=== PATIENT | male | born 1970 | race Caucasian/White ===

== ENCOUNTER 2022-05-06 09:01 | Outpatient (REF) | payer SELFPAY | END 2022-05-06 09:02 | disposition home or self-care (01) | LOC: HO.HAP 09:01 | DX: Z13.89 Encounter for screening for other disorder (principal) ==

== ENCOUNTER 2022-05-27 14:07 | Outpatient (REF) | payer SELFPAY ==
--- NOTE | 2022-05-27 15:35 | MHC.AU.HA3 ---
Hearing Instrument Follow-Up- Binaural Date of Visit: 05/27/22 Right Ear: Model Mason, Color, Serial Number: Raudel SUMNER 1600 ALYSSA-R SN: [id number] Color: Slate Parts Lister Repair Warranty: 04/12/2024 Parts Lister Loss and Damage Warranty: 04/12/2024 [facility] Service Plan: 01/24/2023 Battery Size: Rechargeable Lead Setter/Slim Tube: Size 2-60gain Earmold/Dome/CShell/SlimTip:9mm Open Type of Wax Guard: HearClear Dispensed By: [facility] Date of Fittin01/24/2022 Left Ear: Model Mason, Color, Serial Number: Raudel Patterson AI 1600 ALYSSA-R SN: [id number] Color: Slate Parts Lister Repair Warranty: 04/12/2024 Parts Lister Loss and Damage Warranty: 04/12/2024 [facility] Service Plan: 01/24/2023 Battery Size: Rechargeable Lead Setter/Slim Tube: Size 2-60gain Earmold/Dome/CShell/SlimTip: 9mm Open Type of Wax Guard: Hear Clear Dispensed By: [facility] Date of Fittin01/24/2022 Follow-Up Summary: Charles reported that his right hearing aid is not working. Wax guard had come out of channel marketing coordinator and was stuck in dome. Cleaned both hearing aids. Vacuumed microphones. Replaced domes and wax guards. A listening check demonstrated that the hearing aids are in good working order. Charles also reported that the right hearing aid was having connection issues to his cellphone. Forgot both devices and repaired successfully. Confirmed connection via YODIL guillaume and by streaming music. Discussed option to send hearing aids for in-warranty senior safety support manager repair as previously reported that hearing aids got wet in rain. Charles reported that he will try the hearing aids as is for now and will drop them off next week if problems persist. Recommendations: Hearing instrument maintenance in 6 months, or sooner if needed. Please contact our clinic with any questions or concerns. Recommendations (Other): If Charles drops off hearing aids, they will need to be sent for in-warranty senior safety support manager repair to clean and check electronics. Diagnosis Code(s): Primary Diagnosis: H90.3 Bilateral Sensorineural Hearing Loss Secondary Diagnosis: H93.13 Tinnitus, Bilateral Signature: Provider: An Rizvi, [facility]
== END 2022-05-27 14:08 | disposition home or self-care (01) ==
LOC: HO.HAP 14:07
PROVIDERS: Visit Provider Internal Medicine
DX: Z13.89 Encounter for screening for other disorder (principal)

== ENCOUNTER 2022-07-30 14:23 | Outpatient (REF) | payer SELFPAY ==
--- NOTE | 2022-07-30 16:34 | MHC.AU.HFU ---
Hearing Instrument Follow-Up- Binaural Date of Visit: 07/30/22 Right Ear: Raudel SUMNER 1600 ALYSSA-R SN: [id number] Color: Slate Repair Warranty: 04/12/2024 Loss and Damage Warranty: 04/12/2024 Service Plan: 01/24/2023 Battery Size: Rechargeable Supervisor Felling Bucking: Size 2-60gain Type of Dome: 9mm Open Type of Wax Guard: HearClear Dispensed By: [facility] Date of Fittin01/24/2022 Left Ear: Raudel SUMNER 1600 ALYSSA-R SN: [id number] Color: Slate Repair Warranty: 04/12/2024 Loss and Damage Warranty: 04/12/2024 Service Plan: 01/24/2023 Battery Size: Rechargeable Supervisor Felling Bucking: Size 2-60gain Type of Dome: 9mm Open Type of Wax Guard: Hear Clear Dispensed By: [facility] Date of Fittin01/24/2022 Follow-Up Summary: The patient is here for a hearing aid check as he reports his hearing aids are not working. The [employer]ium [employer] guillaume shows an issue with the left phlebotomy services technician and right microphone. Troubleshooting revealed right and left receivers were not functioning. In office we only had 2/50 gain receivers, so I used those bilaterally and put on new 9mm open domes. I also brushed the microphones under the covers. Listening check reveals clear sound bilaterally. The patient reports improved sound quality bilaterally. He re-ran the Ingenium Golf guillaume check and all hearing aid parts are in good working order. I explained that we had to use 2/50 gain receivers today and that he can wear them temporarily while I order 2/60 gain receivers. He will return in 2-3 weeks for 2/60 gain receivers to be replaced. We discussed hearing aid care as he is concerned why the receivers have had to be replaced twice in 1 year. Discussed allowing hair to thoroughly dry before inserting the hearing aids and recommended removing hearing aids by holding the body of the hearing aids, not the receivers. No charge today, under warranty. Diagnosis Code(s): Primary Diagnosis: H90.3 Bilateral Sensorineural Hearing Loss Secondary Diagnosis: H93.13 Tinnitus, Bilateral Signature: Provider: Julio Barrios, [facility]
== END 2022-07-30 14:24 | disposition home or self-care (01) ==
LOC: HO.HAP 14:23
PROVIDERS: Visit Provider Internal Medicine
DX: Z13.89 Encounter for screening for other disorder (principal)

== ENCOUNTER 2022-11-01 16:34 | Outpatient (REF) | payer SELFPAY | END 2022-11-01 16:35 | disposition home or self-care (01) | LOC: HO.HAP 16:34 | PROVIDERS: Visit Provider Internal Medicine | DX: Z13.89 Encounter for screening for other disorder (principal) ==

== ENCOUNTER 2022-11-01 16:40 | Outpatient (REF) | payer SELFPAY | END 2022-11-01 16:41 | disposition home or self-care (01) | LOC: HO.HAP 16:40 | PROVIDERS: Visit Provider Internal Medicine | DX: Z46.1 Encounter for fitting and adjustment of hearing aid (principal); H90.3 Sensorineural hearing loss, bilateral | CPT/HCPCS: V5267 ==

== ENCOUNTER 2022-11-19 15:52 | Outpatient (REF) | payer SELFPAY | END 2022-11-19 15:53 | disposition home or self-care (01) | LOC: HO.HAP 15:52 | PROVIDERS: Visit Provider Internal Medicine | DX: Z46.1 Encounter for fitting and adjustment of hearing aid (principal); H90.3 Sensorineural hearing loss, bilateral; H93.13 Tinnitus, bilateral | CPT/HCPCS: V5267 ==

== ENCOUNTER 2022-12-11 10:10 | Outpatient (REF) | payer SELFPAY | END 2022-12-11 10:11 | disposition home or self-care (01) | LOC: HO.HAP 10:10 | PROVIDERS: Visit Provider Internal Medicine | DX: Z13.89 Encounter for screening for other disorder (principal) ==

== ENCOUNTER 2023-02-19 12:58 | Outpatient (REF) | payer SELFPAY | END 2023-02-19 12:59 | disposition home or self-care (01) | LOC: HO.HAP 12:58 | PROVIDERS: Visit Provider Internal Medicine | DX: Z46.1 Encounter for fitting and adjustment of hearing aid (principal); H90.3 Sensorineural hearing loss, bilateral | CPT/HCPCS: 92700 ==

== ENCOUNTER 2023-04-07 11:28 | Outpatient (REF) | payer SELFPAY ==
--- NOTE | 2023-04-07 12:56 | MHC.AU.HA3 ---
Hearing Instrument Follow-Up- Binaural Date of Visit: 04/07/23 Right Ear: Mason, , Color, Serial Number: Raudel Patterson AI 1600 ALYSSA-R SN: [id number] Color: Slate Vinyl Welder And Fabricator Repair Warranty: 07/15/2025 Vinyl Welder And Fabricator Loss and Damage Warranty: 07/15/2025 [facility] Service Plan: 01/24/2023 Battery Size: Rechargeable Lifestyle Director/Slim Tube: Size 2-60gain Earmold/Dome/CShell/SlimTip:9mm Open Type of Wax Guard: HearClear Dispensed By: [facility] Date of Fittin01/24/2022 Left Ear: Mason, , Color, Serial Number: Raudel Patterson AI 1600 ALYSSA-R SN: [id number] Color: Slate Vinyl Welder And Fabricator Repair Warranty: 07/15/2025 Vinyl Welder And Fabricator Loss and Damage Warranty: 07/15/2025 [facility] Service Plan: 01/24/2023 Battery Size: Rechargeable Lifestyle Director/Slim Tube: Size 2-60gain Earmold/Dome/CShell/SlimTip: 9mm Open Type of Wax Guard: Hear Clear Dispensed By: [facility] Date of Fittin01/24/2022 Follow-Up Summary: Charles reported that his hearing aids are not working and per the self check via [employer] guillaume, his receivers are broken again. Charles was quite frustrated, as he has had to replace the receivers multiple times in the past few months. He does not understand why they are not withstanding everyday use. Upon inspection, hearing aids were in office. However, could have been related to battery. Instead of charging and troubleshooting in office, Charles opted to send his hearing aids to [facility] [place] for in-warranty repair and full diagnostics to determine cause of frequent manager cash replacements. Programmed [employer] loaners. Provided extra batteries and demo'ed how to change. Discussed turning on/off by opening battery door and volume control use. Also paired to cellphone. Recommendations: Patient will be contacted when materials have arrived. Diagnosis Code(s): Primary Diagnosis: H90.3 Bilateral Sensorineural Hearing Loss Signature: Provider: An Rizvi, [facility]
== END 2023-04-07 11:29 | disposition home or self-care (01) ==
LOC: HO.HAP 11:28
PROVIDERS: Visit Provider Internal Medicine
DX: Z13.89 Encounter for screening for other disorder (principal)

== ENCOUNTER 2023-04-21 15:26 | Outpatient (REF) | payer SELFPAY | END 2023-04-21 15:27 | disposition home or self-care (01) | LOC: HO.HAP 15:26 | PROVIDERS: Visit Provider Pediatrics | DX: Z13.89 Encounter for screening for other disorder (principal) ==

== ENCOUNTER 2023-06-24 13:30 | Outpatient (REF) | payer SELFPAY ==
--- NOTE | 2023-06-24 16:19 | MHC.AU.HA3 ---
Hearing Instrument Follow-Up- Binaural Date of Visit: 06/24/23 Right Ear: Mason, Model, Color, Serial Number: Raudel Patterson AI 1600 ALYSSA-R SN: [id number] Color: Slate Trust Operations Assistant Repair Warranty: 07/14/2025 Trust Operations Assistant Loss and Damage Warranty: 07/14/2025 [facility] Service Plan: 01/24/2023 Battery Size: Rechargeable Machine Captain/Slim Tube: Size 2-60gain Earmold/Dome/CShell/SlimTip:9mm Open Type of Wax Guard: HearClear Dispensed By: [facility] Date of Fittin01/24/2022 Left Ear: Mason, Model, Color, Serial Number: Raudel Patterson AI 1600 ALYSSA-R SN: [id number] Color: Slate Trust Operations Assistant Repair Warranty: 07/14/2025 Trust Operations Assistant Loss and Damage Warranty: 07/14/2025 [facility] Service Plan: 01/24/2023 Battery Size: Rechargeable Machine Captain/Slim Tube: Size 2-60gain Earmold/Dome/CShell/SlimTip: 9mm Open Type of Wax Guard: Hear Clear Dispensed By: [facility] Date of Fittin01/24/2022 Follow-Up Summary: Pt reports that as of this morning his right hearing aid is not connecting with his phone, not found in the guillaume, and not streaming. Cleaned and checked aid and confirmed it is functional. Attempted forgetting and repairing aid. Connected aids in Inspire to confirm the right aid could be found by the software. Called Raudel and was walked through additional attempts to forget and pair the aids with his phone, as well as wipe them in the software and reconnect them. Right aid was losing connection with [employer]. Tech support recommended sending both aids in. Reference #[id number]. Set up with loaners. Recommendations: Recommendations: Patient will be contacted when materials have arrived. Recommendations (Other): Raudel recommends setting up new [facility] database file for patient when the aids come back from repair to prevent corrupted data from transferring back to the aids. Diagnosis Code(s): Primary Diagnosis: H90.3 Bilateral Sensorineural Hearing Loss Secondary Diagnosis: H93.13 Tinnitus, Bilateral Signature: Provider: An Gaitna, [facility]
== END 2023-06-24 13:31 | disposition home or self-care (01) ==
LOC: HO.HAP 13:30
PROVIDERS: Visit Provider Pediatrics
DX: Z13.89 Encounter for screening for other disorder (principal)

== ENCOUNTER 2023-07-10 09:09 | Outpatient (REF) | payer SELFPAY | END 2023-07-10 09:10 | disposition home or self-care (01) | LOC: HO.HAP 09:09 | PROVIDERS: Visit Provider Pediatrics | DX: Z13.89 Encounter for screening for other disorder (principal) ==

== ENCOUNTER 2023-09-01 13:01 | Outpatient (REF) | payer SELFPAY ==
--- NOTE | 2023-09-01 13:43 | MHC.AU.HA3 ---
Hearing Instrument Follow-Up- Binaural Date of Visit: 09/01/23 Right Ear: Mason, Model, Color, Serial Number: Raudel Patterson AI 1600 ALYSSA-R SN: [id number] Color: Slate Baggage Clerk Repair Warranty: 07/14/2025 Baggage Clerk Loss and Damage Warranty: 07/14/2025 [facility] Service Plan: 01/24/2023 Battery Size: Rechargeable Polymer Engineer/Slim Tube: Size 2-60gain Earmold/Dome/CShell/SlimTip:9mm Open Type of Wax Guard: HearClear Dispensed By: [facility] Date of Fittin01/24/2022 Left Ear: Mason, Model, Color, Serial Number: Raudel Jamesv AI 1600 ALYSSA-R SN: [id number] Color: Slate Baggage Clerk Repair Warranty: 07/14/2025 Baggage Clerk Loss and Damage Warranty: 07/14/2025 [facility] Service Plan: 01/24/2023 Battery Size: Rechargeable Polymer Engineer/Slim Tube: Size 2-60gain Earmold/Dome/CShell/SlimTip: 9mm Open Type of Wax Guard: Hear Clear Dispensed By: [facility] Date of Fittin01/24/2022 Follow-Up Summary: Here with right hearing aid, guillaume tells him it is the keno attendant. Cleaned and checked aids, listening check positive left. Tried cleaning out right keno attendant as well as connection point between hearing aid and keno attendant, no improvement. No obvious damage to keno attendant. Replaced, listening check positive. Charles continues to be frustrated with this ongoing issue. Reviewed best practices for hearing aid maintenance to prevent keno attendant problems. Recommendations: Recommendations: Hearing instrument follow-up or maintenance as needed. Diagnosis Code(s): Primary Diagnosis: H90.3 Bilateral Sensorineural Hearing Loss Secondary Diagnosis: H93.13 Tinnitus, Bilateral Signature: Provider: An Gaitan, [facility]
== END 2023-09-01 13:02 | disposition home or self-care (01) ==
LOC: HO.HAP 13:01
PROVIDERS: Visit Provider Pediatrics
DX: Z13.89 Encounter for screening for other disorder (principal)

== ENCOUNTER 2024-03-24 14:56 | Outpatient (REF) | payer OTHER, SELFPAY | END 2024-03-24 14:57 | disposition home or self-care (01) | LOC: HO.HAP 14:56 | DX: Z13.89 Encounter for screening for other disorder (principal) ==

== ENCOUNTER 2024-05-26 15:41 | Outpatient (REF) | payer OTHER, SELFPAY ==
--- NOTE | 2024-05-27 08:23 | MHC.AU.HA3 ---
Hearing Instrument Follow-Up- Binaural Date of Visit: 05/26/24 Right Ear: Mason, Model, Color, Serial Number: Raudel Patterson AI 1600 ALYSSA-R SN: [id number] Color: Slate Medical Affairs Director Repair Warranty: 07/14/2025 Medical Affairs Director Loss and Damage Warranty: 07/14/2025 [facility] Service Plan: 01/24/2023 Battery Size: Rechargeable Gis Technician/Slim Tube: Size 2-60gain Earmold/Dome/CShell/SlimTip:9mm Open Type of Wax Guard: HearClear Dispensed By: [facility] Date of Fittin01/24/2022 Left Ear: Mason, Model, Color, Serial Number: Raudel Jamesv AI 1600 ALYSSA-R SN: [id number] Color: Slate Medical Affairs Director Repair Warranty: 07/14/2025 Medical Affairs Director Loss and Damage Warranty: 07/14/2025 [facility] Service Plan: 01/24/2023 Battery Size: Rechargeable Gis Technician/Slim Tube: Size 2-60gain Earmold/Dome/CShell/SlimTip: 9mm Open Type of Wax Guard: Hear Clear Dispensed By: [facility] Date of Fittin01/24/2022 Follow-Up Summary: Left aid not working. Cleaned aids. Replaced wax guards and domes. Listening check positive right. Tried new monitoring specialist left, no improvement. Light comes on when placed in office devulcanizer charger but no sound. Sending to [facility]. Will make note of Charles's ongoing monitoring specialist problems to [facility] as well. Provided a pair of loaner aids. Charles took his right aid with him. Recommendations: Recommendations: Patient will be contacted when materials have arrived. Recommendations (Other): May need appointment to pair aids. Has loaners to return. Diagnosis Code(s): Primary Diagnosis: H90.3 Bilateral Sensorineural Hearing Loss Secondary Diagnosis: H93.13 Tinnitus, Bilateral Signature: Provider: An Gaitan, [facility]
== END 2024-05-26 15:42 | disposition home or self-care (01) ==
LOC: HO.HAP 15:41
DX: Z13.89 Encounter for screening for other disorder (principal)

== ENCOUNTER 2024-06-10 14:44 | Outpatient (REF) | payer SELFPAY ==
--- OUTSIDE RECORDS SUMMARY | 2024-06-10 16:18 | XMS_ITS | Continuity of Care Document ---
Author Organization [facility], Main Office Address [address] [place] [address] Care Team Providers Care Dirt Contractor Name Role Phone TITO HDZ Primary Care Provider TAMI WORRELL Windows Vmware Engineer KUSH DAHL Phys. Med. & Rehab [phone] JAYDA LOCK Urologist [facility] Orthopedic Surgeon CAT PINEDA Orthopedic Surgeon [facility] [place] [place] Manual Arts Therapy Teacher [facility] GASTROENTEROLOGY System Planning Engineer [phone] [facility] VASCULAR Vascular Surgeon [phone] Assessment No assessment recorded. Plan of Treatment Reminders Order Date Submit Date Provider Last Modified By Organization Details Last Modified Time Details Appointments telehealt h20 2024 02:45P M Tito Hdz MD Not available Not available Not available Lab lipid panel, serum 2023 024 [place] [facility], [address], [place], [address], 06/02/2024 06:07:08 vitamin D, 25-hydrox y, total, serum 2023 024 [place] [facility], [address], [place], [address], 06/02/2024 06:07:09 PSA, total, serum or plasma 2023 024 [place] [facility], [address], [place], [address], 06/02/2024 06:07:08 CMP, serum or plasma 2023 024 [place] [facility], [address], [place], [address], 06/02/2024 06:07:07 CBC w/ auto diff 2023 024 [place] [facility], [address], [place], [address], 06/02/2024 06:07:[address] referral 2023 024 [email or web address] [facility], [address] [place] [address] [place], [address], 05/31/2024 13:49:31 nutrition ist/dieti [facility] referral 2023 024 [email or web address] Not available 05/31/2024 13:49:31 Procedures None recorded. Surgeries None recorded. Imaging None recorded. 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 Excess Body Weight Loss % 5 Not available Not available Not available Ongoing of LDL Direct <100 Not available Not available Not available Ongoing of LDL Direct yearly Not available Not available Not available Pt advised and agrees to work on self-monitoring behaviors; begin an appropriate diet for weight loss (such as a low carbohydrate diet), to do moderate exercise (such as walking) for approximately 150 minutes per week; and to identify desirable and timely rewards that will reinforce achievement of specific weight loss goals.Pt agrees to follow low fat diet, avoid saturated fats , decrease carbohydrate intake to 45 - 50 gm per meal , pt agrees to develop a regular pattern of exercise such as walking 30 minutes a day 3 times a week, Pt will keep a record of exercise and activity level Patient preferences and goals incorporated in plan and updated/modified as needed to reflect progress toward goal. pmadden Not available 05/31/2024 13:13:01 Patient Instructions Encounter Date Encounter Id Patient Instructions Last Modified By Organization Details Last Modified Time 05/31/2024 [id number] Prostate Cancer Screening pmadden Not available 05/31/2024 13:35:29 When You Want to Lose Weight: Care Instructions pmadden Not available 05/31/2024 13:35:28 Nutrition Referral and Weight Management Follow-up Information pmadden Not available 05/31/2024 13:35:28 learning about colon cancer pmadden Not available 05/31/2024 13:35:28 A healthy lifestyle: care instructions pmadden Not available 05/31/2024 13:35:28 Well Visit 50 to 65: Care Instructions pmadden Not available 05/31/2024 13:35:28 Medications (OTC , herbal therapies, supplements) reviewed and reconciled with patient and or caregiver, including potential side effects, drug interactions, instructions, and the consequences of not taking medication. Reviewed potential barriers to medication adherence, such as side effects from medication or cost of medication. 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 for Body mass index 25-29 - overweight Referring Physician: Jason Lux, Internal Medicine, Encounter Date: 05/31/2024 Manual Arts Therapy Teacher Referral for Hea ring loss Referring Physician: Jason Lux, Internal Medicine, Encounter Date: 05/31/2024 Problems Name Problem SNOMED Code Status Onset Date Resolution Date Notes Provider Name and Address Organization Details Recorded Time Vertigo 432128789 Completed 08/14/2016 Denita morris [facility] 7 10:40:21 History of Lyme disease 358292253 Completed 07/13/2022 MISSY Kincaid [facility] 3 09:15:53 Body mass index 25-29 - overweigh t 755935378 Completed 06/04/2018 Tito Hdz MD [address], [place], [address], [facility] 8 10:03:27 Thyroid nodule 030756677 Completed 01/17/2016 Tito Hdz MD [address], [place], [address], [facility] 6 06:06:56 Tinnitus 38585817 Completed 201508/14/2016 Denita Dong [place] null, [facility] 7 10:41:15 Acute sinusitis 93896931 Completed 201605/30/2017 Tito Hdz MD [address], [place], [address], [facility] 7 15:32:08 Chronic sinusitis 59109699 Completed 201606/04/2018 Tito Hdz MD [address], [place], [address], [facility] 8 10:03:41 Adult health examinati on Completed 201605/30/2017 Tito Hdz MD [address], [place], [address], [facility] 7 16:01:53 Knee pain Completed 201805/31/2019 Tito Hdz MD [address], [place], [address], [facility] 9 10:01:15 Osteoarth ritis of right knee joint 293150427339 100 Active 2018 Tito Hdz MD [address], [place], [address], [facility] 9 07:02:46 Sprain of posterior cruciate ligament of knee 741295387 Completed 201806/01/2020 Tito Hdz MD [address], [place], [address], [facility] 0 10:22:03 Chondroma lacia of patella 85890429 Completed 201806/01/2020 Tito Hdz MD [address], [place], [address], [facility] 0 10:22:34 Hearing loss 82693770 Active 2018 Tito Hdz MD [address], [place], [address], [facility] 9 10:03:02 Bilateral tinnitus 471898292600 2 Active 2018 Tito Hdz MD [address], [place], [address], [facility] 9 10:03:10 Obesity 444264308 Completed 201806/01/2020 Tito Hdz MD [address], [place], [address], [facility] 0 10:20:22 Family history of Cardiovas cular disease 566062555 Active 2019 Tito Hdz MD [address], [place], [address], [facility] 0 10:30:03 Adjustmen t disorder with depressed mood 30567804 Completed 201905/09/2024 Tito Hdz MD [address], [address], [facility] 4 23:21:00 Achilles tendiniti s 69039780 Completed 202006/13/2022 Tito Hdz MD [address], [address], [facility] 3 16:08:11 Calcaneal spur 56976867 Active 2020 Tito Hdz MD [address], [place], [address], [facility] 1 15:52:22 COVID-19 064606591 Completed 202106/13/2022 Tito Hdz MD [address], [place], [address], [facility] 3 16:00:26 Sensorine ural hearing loss 31983893 Active 2021 Tito Hdz MD [address], [place], [address], [facility] 2 19:37:34 Attention deficit hyperacti vity disorder, predomina ntly inattenti ve type 15303069 Active 2022 Tito Hdz MD [address], [place], [address], [facility] 3 13:36:04 Diaphragm atic eventrati on 99492228 Active 2022 Tito Hdz MD [address] [facility] [address] [facility] [address], [place], [address], [facility] 3 10:19:46 Left Achilles tendiniti s 055771189065 102 Active 2022 Tito Hdz MD [address] [facility] [address] [facility] [address], [place], [address], [facility] 3 10:01:26 Impaired fasting glycemia 088669147 Active 2023 Tito Hdz MD [address], [place], [address], [facility] 4 06:32:35 Acute deep venous thrombosi s of left lower extremity 379313691801 104 Active 2023 Tito Hdz MD [address] [address], [place], [address], [facility] 4 22:39:54 Umbilical hernia 131042068 Active 2023 Tito Hdz MD [address] [address], [place], [address], [facility] 4 09:18:14 Moderate major depressio n, single episode 29020995 Active 2023 Tito Hdz MD [address] [address], [place], [address], [facility] 4 15:49:23 Problem Notes None recorded. Procedures Surgical History Date Name Laterality Status Provider Name and Address Organization Details Recorded Time 01/07/20 24 repair of umbilical hernia completed Tito Hdz MD [address] [address], [place], [address], [facility] 01/16/2024 21:31:35 06/04/20 23 repair of tendo achilles completed Chana Krishnan [facility] 07/09/2023 14:14:47 02/08/20 22 tooth extraction completed Anali molina [facility] 09/09/2023 13:19:42 11/23/19 20 vasectomy completed Tito Hdz MD [address], [address], [facility] 11/26/2019 12:39:28 06/04/20 18 Cerumen Removal completed Tito Hdz MD [address] [address], [place], [address], [facility] 06/04/2018 10:24:16 05/11/20 18 Oral surgery procedure completed Dionne Stewart [facility] 06/04/2018 09:40:01 11/27/18 71 Circumcision completed Pebbles Barros MA [facility] 06/04/2021 08:46:28 Oral surgery procedure completed Chana Krishnan MA [facility] 06/13/2022 15:40:35 Imaging Results None recorded. Procedure Notes None recorded. Medical Equipment None Reported. Allergies Allergen ID Allergen Name Allergen Category Reaction Reaction Severity Criticality Documentation Date Start Date Code Code System Note Provider Name and Address Organization Details Recorded Time 71997 sertralin e medicatio n abdominal pain diarrhea Not available Not available Not available 04/15/2024 [id number] RxNorm Anali MIS[address] Camacho [facility] 11:23:14 Medications Name Sig Start Date Stop Date Status Note LastModified by Organization Details LastModified Time amoxicilli n 500 mg capsule TAKE 1 CAPSULE BY MOUTH EVERY 8 HOURS UNTIL FINISHED 06/13 completed Not Available Not Available Not Available prednisone 10 mg tablet Take 3 tablets by mouth daily for 3 days, then 2 tablets by mouth for 3 days, then 1 tablet by mouth for 3 days. 08/27 completed Not Available Not Available Not Available doxycyclin e hyclate 100 mg capsule 05/30 completed Not Available Not Available Not Available cetirizine 10 mg tablet Take 1 tablet every day by oral route. 05/30 completed Not Available Not Available Not Available azithromyc in 250 mg tablet TAKE 2 TABLETS (500 MG) BY ORAL ROUTE ONCE DAILY FOR 1 DAY THEN 1 TABLET (250 MG) BY ORAL ROUTE ONCE DAILY FOR 4 DAYS 07/26 completed Not Available Not Available Not Available ibuprofen 800 mg tablet TAKE 1 TABLET BY MOUTH EVERY 8 HOURS NEEDED 07/09 completed Not Available Not Available Not Available tizanidine 4 mg tablet Take 1 tablet every 6 hours by oral route as needed. 12/24 completed Not Available Not Available Not Available benzonatat e 200 mg capsule TAKE 1 CAPSULE BY MOUTH THREE TIMES DAILY FOR 7 DAYS NEEDED FOR COUGH 09/08 completed Not Available Not Available Not Available hydrocodon e 5 mg-acetami nophen 325 mg tablet TAKE 1 TABLET BY MOUTH EVERY 6 HOURS NEEDED FOR PAIN 01/05 /2023 completed Not Available Not Available Not Available prednisone 20 mg tablet Take 3 tablets for 3 days, then 2 tablets for 3 days then 1 tablet for 3 days. 09/08 completed Not Available Not Available Not Available clonazepam 0.5 mg tablet TAKE 1 TABLET BY MOUTH TWICE DAILY NEEDED FOR PANIC ATTACKS OR SLEEP active Not Available Not Available No t Available prednisone 5 mg tablet 12/08 completed Not Available Not Available Not Available aspirin 81 mg tablet,del ayed release TAKE 1 TABLET BY MOUTH TWICE DAILY 07/09 completed Not Available Not Available Not Available tramadol 50 mg tablet 08/14 completed Not Available Not Available Not Available acetaminop hen 500 mg tablet TAKE 2 TABLETS BY MOUTH EVERY 8 HOURS NEEDED 07/09 completed Not Available Not Available Not Available amoxicilli n 875 mg tablet 12/24 completed Not Available Not Available Not Available dextroamph etamine-am phetamine ER 20 mg 24hr capsule,ex tend release Take 1 capsule every day by oral route for 90 days. 2023 active Not Available Not Available Not Avai lable oseltamivi r 75 mg capsule Take 1 capsule twice a day by oral route. 06/01 completed Not Available Not Available Not Available Iophen C-NR 10 mg-100 mg/5 mL oral liquid Take 10 mL as needed by oral route at bedtime. 08/06 completed Not Available Not Available Not Available methylpred nisolone 4 mg tablets in a dose pack TAKE 6 TABLETS ON DAY 1 DIRECTED ON PACKAGE AND DECREASE BY 1 TAB EACH DAY FOR A TOTAL OF 6 DAYS 07/19 completed Not Available Not Available Not Available albuterol sulfate HFA 90 mcg/actuat ion aerosol inhaler INHALE 2 PUFFS BY MOUTH EVERY 4 HOURS NEEDED 10/19 completed Not Available Not Available Not Available fluticason e propionate 50 mcg/actuat ion nasal spray,susp ension SHAKE LIQUID AND USE 2 SPRAYS IN EACH NOSTRIL EVERY DAY DIRECTED 10/19 completed Not Available Not Available Not Available sertraline 50 mg tablet TAKE 1 TABLET BY MOUTH EVERY DAY 04/15 completed Not Available Not Available Not Available doxycyclin e hyclate 100 mg tablet Take 1 tablet twice a day by oral route for 10 days. 11/29 completed Not Available Not Available Not Available amoxicilli n 875 mg-potassi um clavulanat e 125 mg tablet TAKE 1 TABLET BY MOUTH EVERY 12 HOURS FOR 10 DAYS 09/08 completed Not Available Not Available Not Available oxycodone 5 mg tablet TAKE 1 TABLET BY MOUTH EVERY 6 HOURS NEEDED FOR PAIN 03/09 completed Not Available Not Available Not Available escitalopr am 10 mg tablet TAKE 1 TABLET BY MOUTH EVERY DAY DIRECTED 05/31 completed Not Available Not Available Not Available Saline Nasal 0.65 % spray aerosol Take 2 sprays 4 times a day by nasal route. 05/30 completed Not Available Not Available Not Available multivitam in 1 qd active Not Available Not Available Not Available GaviLyte-G 236 gram-22.74 gram-6.74 gram-5.86 gram oral solution USE DIRECTED 09/08 completed Not Available Not Available Not Available Eliquis 5 mg tablet TAKE 1 TABLET BY MOUTH TWICE DAILY active Not Available Not Available No t Available Eliquis DVT-PE Treatment 30-Day Starter 5 mg (74 tablets) in dose pack TAKE 2 TABLETS BY MOUTH TONIGHT (09/05). THEN TAKE 2 TABLETS BY MOUTH TWO TIMES A DAY FOR 7 DAYS. THEN TAKE 1 TABLET BY MOUTH TWO TIMES A DAY. 10/19 completed per ER, should stay on this for 3 months. Not Available Not Available Not Available Flucelvax Quad 60 mcg (15 mcg x 4)/0.5 mL intramuscu lar susp PHARMACY ADMINIST ERED 06/01 completed Not Available Not Available Not Available Paxlovid 300 mg (150 mg x 2)-100 mg tablets in a dose pack TAKE 3 TABLETS TWICE A DAY BY ORAL ROUTE FOR 5 DAYS. 06/13 completed Not Available Not Available Not Available Vitals Date Recorded Body height Body mass index (BMI) Body weight Oxygen saturation Oxygen saturation in Arterial blood by Pulse oximetry Heart rate Body temperature Systolic blood pressure Diastolic blood pressure Provider Name and Address Organization Details Last Updated DateTime 4 185.42 cm 29.9 kg/m2 410583. 68 g 98 % 98 % 78 /min 98.7 [degF] 134 mm[Hg] 77 mm[Hg] Alberta Mena MA [facility] 4 12:59:28 Social History Question Answer Notes LastModified by Organizat ion Details LastModified Time Tobacco Smoking Status Never Smoker Not Available [employer] 04/11/2020 03:36:41 Do You Have An Advance Directive? Yes HCP- -Sharona Information not available 07/09/2023 What Is Your Level Of Alcohol Consumption? Occasional [id number] Information not available 04/11/2020 Is Blood Transfusion Acceptable In An Emergency? Yes [id number] Information not available 04/11/2020 What Is Your Level Of Caffeine Consumption? None Decaf Information not available 07/09/2023 How Much Tobacco Do You Chew? None [id number] Information not available 04/11/2020 Are You Currently Employed? Yes [id number] [facility] Information not available 06/13/2022 What Type Of Diet Are You Following? VEGETARIAN [id number] Information not available 04/11/2020 Which Illicit Or Recreational Drugs Have You Used? None [id number] Information not available 04/11/2020 Do You Or Have You Ever Used E-cigarettes Or Vape? 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 With Others (Sharona)Alyssa, 3 Children, 2 Cats And Dog Information not available 07/09/2023 Do You Take Precautions To Prevent Distracted Driving? Yes Information not available 12/27/2015 How Often Do You Need To Have Someone Help You When You Read Instructions, Pamphlets, Or Other Written Material From Your Doctor Or Pharmacy? Never Information not available 12/27/2015 Have You Served In The ? Yes Information not available 06/04/2018 Have You Or Anyone In Your Household Had Any Of The Following Symptoms In The Last 14 Days: Sore Throat, Cough, Chills, Body Aches For Unknown Reasons, Shortness Of Breath For Unknown Reasons, Loss Of Smell, Loss Of Taste, Fever At Or Greater Than 100 Degrees Fahrenheit? No Information not available 06/01/2020 Are You Or Anyone In Your Household A Health Care Provider Or Emergency Responder? No Information not available 06/01/2020 To The Best Of Your Knowledge Have You Been In Close Proximity To Any Individual Who Tested Positive For COVID-19? No Information not available 06/01/2020 *AWV ONLY* Are You Presently Prescribed Opioid Medication By PCP Or Specialist? If YES -Provider Assess The Benefit For Other, Non-opioid Pain Therapies Instead, Even If The Patient Does Not Have OUD But Is Possibly At Risk. No Information not available 06/01/2020 What Was The Date Of Your Most Recent Tobacco Screening? 05/31/2024 [email or web address] Information not available 05/31/2024 How Many Children Do You Have? 3 [id number] Information not available 04/11/2020 Do You Use Protection During Sex? No Information not available 06/01/2020 Do You Use Your Seat Belt Or Car Seat Routinely? Yes Information not available 06/04/2021 Seat Belts Used Routinely Yes Information not available 07/09/2023 Are You Sexually Active? Yes Sharona [email or web address] Information not available 09/09/2023 Smoke Alarm In Home Yes Information not available 07/09/2023 Do You Have Smoke And Carbon Monoxide Detectors In Your Home? Yes Information not available 06/04/2021 At What Age Did You Start Smoking Tobacco? 1 [id number] Information not available 04/11/2020 Are You Passively Exposed To Smoke? No Information not available 12/27/2015 Do You Or Have You Ever Used Smokeless Tobacco? Never Used Smokeless Tobacco [id number] Information not available 04/11/2020 How Much Tobacco Do You Smoke? No [id number] Information not available 04/11/2020 Do You Use Any Illicit Or Recreational Drugs? No Information not available 07/09/2023 Do You Use Sunscreen Routinely? Yes [id number] Information not available 04/11/2020 How Many Years Have You Smoked Tobacco? 0 [id number] Information not available 04/11/2020 Do You Or Have You Ever Used Any Other Forms Of Tobacco Or Nicotine? No Information not available 07/09/2023 Sex: Unknown Functional Status Question Answer Note LastModified by Organizat ion Details LastModified Time Are you able to walk? YESWOREST annamarie Information not available 07/09/2023 Are you able to care for yourself? Yes [id number] Information not available 04/11/2020 What is your exercise level? Occasional 07/09/23 upper strength exercises due to foot surgery [email or web address] Information not available 07/09/2023 Mental Status None recorded. Family History Relationship Description Onset Age of this Age Resolved Age Notes LastModified by Organization Details LastModified Time Unspecified Relation Adopted [email or web address] Not available 2023 13:50:23 Unspecified Relation Alcohol abuse [email or web address] Not available 2019 09:48:24 Unspecified Relation Substance abuse [email or web address] Not available 2020 08:43:15 Mother Heart disease [email or web address] Not available 06/13 16:09:10 Medical History Condition Response Obesity N ADHD Y Vision or Eye Problems Y Ear or Hearing Problems Y Chicken Pox Y Immunizations Vaccine Type Date Status Note Provider Name and Address Organization Details Recorded Time Influenza, MDCK, quadrivalent, preservative 03/03/20 20 completed MISSY Luz, [facility] 06/04/2021 08:46:48 COVID-19 vaccine, vector-nr, rS-Ad26, PF, 0.5 mL 08/16/19 21 [facility] 08:46:48 COVID-19, mRNA, LNP-S, PF, 30 mcg/0.3 mL dose 04/01/20 21 completed MISSY Kincaid [facility] 08/27/2022 15:29:55 Tdap 12/27/19 16 completed MISSY [facility] 06/13/2022 15:28:54 COVID-19, mRNA, LNP-S, bivalent, PF, 50 mcg/0.5 mL or 25mcg/0.25 mL dose 05/26/[address] [facility] 06/13/2022 15:28:54 Influenza, MDCK, quadrivalent, PF 05/26/20 22 completed MISSY Kincaid, [facility] 07/13/2022 10:24:18 Influenza, split virus, quadrivalent, PF 04/01/20 21 completed MISSY Kincaid, [facility] 08/27/2022 15:29:55 Tdap 10/15/19 24 completed MISSY Mcdonald, [facility] 10/20/2023 15:37:28 Influenza, split virus, quadrivalent, PF 05/30/20 17 cancelled patient objection Not Available [facility] 06/26/2019 02:22:13 Influenza, split virus, quadrivalent, PF 06/04/20 18 cancelled patient objection Not Available [facility] 06/26/2019 02:22:15 Influenza, split virus, trivalent, PF 04/15/20 24 completed Anali molina MA null, [facility] 04/15/2024 12:24:53 Past Encounters Encounter ID Performer Location Encounter Start Date Encounter Closed Date Diagnosis/Indication Diagnosis SNOMED-CT Code Diagnosis ICD10 Code [id number] Tito Hdz MD [facility] [address] [facility] [address] [place] [address] 05/07/2024 14:29:22 05/10/2024 14:09:10 Moderate major depression, single episode 24068240 F32.1 Attention deficit hyperactivity disorder, predominantly inattentive type 74198076 F90.0 [id number] Jason Lux PA-C Main Office [address] [facility] [address] [place] [address] 05/31/2024 12:42:40 05/31/2024 13:49:31 Adult health examination 094712423 Z00.00 Screening for malignant neoplasm of colon 656924109 Z12.11 Left Achil les tendinitis 7581823906 38927 M76.62 Mixed hyperlipidemia 267 832315 E78.2 Attention deficit hyperactivity disorder, predominantly inattentive type 67639839 F90.0 Body mass index 25-29 - overweight 837912200 E66.3 Z68.29 Nocturia 906976921 R35.1 Vitamin D deficiency [id number] E55.9 Acute deep venous thrombosis of left lower extremity [id number] I82.402 Itching of skin [id number] L29.9 Hearing loss [id number] H9 1.92 Single epi sode of major depression in full remission [id number] F32.5 Health Concerns Section Related Observation LastModified by Organization Detai ls LastModified Time None Recorded Concern Status LastModified by Organization Details LastModified Time None Recorded Payers Encounter Date Sequence Insurance Name Policy Number Policy Ashley Covered Member ID Ashley Member ID Guarantor Name 05/31/2024 1 [employer] [id number] Charles Camacho [id number] Charles Camacho Notes Date Note Type Note Provider Name and Address Organization Details Recorded Time 05/31/2024 text/html here for annual pe. Jason Lux PA-C [id number] [id number], [place], [address], [facility] 05/31/2024 13:52:16
--- OUTSIDE RECORDS SUMMARY | 2024-06-10 16:18 | XMS_ITS | Data Portability ---
Author Organization [facility], Main Office Address [address] [facility] [address] [place] [address] Care Team Providers Care Drywaller Name Role Phone TITO HDZ Primary Care Provider TAMI WORRELL Reinstatement Clerk KUSH DAHL Phys. Med[facility] Re[facility] JAYDA LOCK Urologist [facility] Orthopedic Surgeon CAT PINEDA Orthopedic Surgeon [phone] [facility] Sanitor [facility] GASTROENTEROLOGY Wood [employer] Hardware Outfitter [facility] VASCULAR Vascular Surgeon [phone] Assessment Encounter Date Assessment Date Assessment LastModified by Organization Details LastModified Time 04/09/2024 04/09/2024 This service was provided using telemedicine. Patient consented to video & audio visit Patient was located in the [facility]. Provider was located in the office. No other persons participated in the telemedicine visit except for the patient unless otherwise indicated here. {{}} Total time of visit was 24 minutes. [email or web address] Not available 04/09/2024 15:52:59 04/15/2024 04/15/2024 Discussed with patient the signs/symptoms warranted for a return to office visit and/or an ER visit. Patient understood and agreed with the plan. Not available 04/15/2024 10:55:40 05/07/2024 05/07/2024 This service was provided using telemedicine. Patient consented to video & audio visit Patient was located in the [facility]. Provider was located in the office. No other persons participated in the telemedicine visit except for the patient unless otherwise indicated here. {{}} Total time of visit was 16 minutes. [email or web address] Not available 05/09/2024 23:05:34 Plan of Treatment Reminders Order Date Submit Date Provider Last Modified By Organization Details Last Modified Time Details Appointments telehe alth20 2024 02:45P M Tito Hdz MD Not available Not available Not available Lab lipid panel, serum 2023 024 [facility], [address] [facility], [facility] [address], [place], [address], 06/02/2024 06:07:08 vitami n D, 25-hyd frank, total, serum 2023 024 [facility], [address], [place], [address], 06/02/2024 06:07:09 PSA, total, serum or plasma 2023 024 [place] [facility], [address] [facility], [facility] [address], [place], [address], 06/02/2024 06:07:08 CMP, serum or plasma 2023 024 [place] [facility], [address] [facility], [facility] [address], [place], [address], 06/02/2024 06:07:07 CBC w/ auto diff 2023 024 [facility], [address] [facility], [facility] [address], [place], [address], 06/02/2024 06:07:06 Referral behavi oral health referr al - for flaco abdirahman and anxiet y 2023 024 [facility], [address] [facility] [address], [place], [address], 04/15/2024 11:43:13 audiol ogist referr al 2023 024 [email or web address] [facility], [address] [facility] [place], [address], 05/31/2024 13:49:31 nutrit ionist /grace wylie referr al 2023 024 Not available 05/31/2024 13:49:31 Procedures None record ed. Surgeries None record ed. Imaging exerci se stress test - chest pain while walkin g 2023 024 carlos manuel [facility], [address] [place] [address] Drive, [address], [place], [address], 05/31/2024 09:24:18 Medication Orders Eliqui s 5 mg tablet 2023 024 [id number], [address] [place], [place], [id number], 03/09/2024 15:38:06 sertra line 50 mg tablet 2023 024 [facility] #70059, [address], [place], [id number], 04/15/2024 11:23:01 clonaz epam 0.5 mg tablet 2023 024 [facility] #30414, [address], [place], [id number], 04/09/2024 15:51:54 escita lopram 10 mg tablet 2023 024 [facility] #06669, [address], [place], [id number], 05/31/2024 13:25:32 escita lopram 10 mg tablet 2023 024 [facility] #14277, [address], [place], [id number], 05/31/2024 13:25:44 dextro amphet amine- amphet amine ER 20 mg 24hr capsul e,exte nd releas e 2023 024 [facility] #95091, [address], [place], [place], [id number], 05/31/2024 13:47:51 Patient Targets Encounter Date Encounter Id Patient Goals Patient Target Last Modified By Organization Details Last Modified Time 05/31/2024 [id number] 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 Reviewed potential barriers to medication adherence, such as side effects from medication or cost of medication. [email or web address] Not available 04/15/2024 11:12:14 05/07/2024 [id number] depression treatment: care instructions [email or web address] Not available 05/07/2024 15:36:35 05/31/2024 [id number] Prostate Cancer Screening [email or web address] Not available 05/31/2024 [...] Instructions [email or web address] Not available 05/31/2024 13:35:28 Medications (OTC, herbal therapies, supplements) reviewed and reconciled with patient and or caregiver, including potential side effects, drug interactions, instructions, and the consequences of not taking medication. Reviewed potential barriers to medication adherence, such as side effects from medication or cost of medication. [email or web address] Not available 05/31/2024 13:09:40 Reason for Referral Behavioral Health Referral f or Moderate major depression, single episode for depression and anxiety Referring Physician: Aidee Farris, Family Medicine, Encounter Date: 04/15/2024 Mig Tig Welder/dietitian Refer ral for Body mass index 25-29 - overweight Referring Physician: Jason Lux, Internal Medicine, Encounter Date: 05/31/2024 Sanitor Referral for Hea ring loss Referring Physician: Jason Lux, Internal Medicine, Encounter Date: 05/31/2024 Results Created Date Observation Date Name Description Value Unit Range Abnormal Flag Note LastModifiedBy Organization Detail LastModifiedTime 06/01/20 24 06/01/2024 CBC WITH DIFFE RENTI AL/PL ATELE T WBC 5.8 x10e3 /uL 3.4-10 .8 normal Not Available [facility] ([facility]) [address] [place], [address], 06/02/2024 06:07:06 06/01/20 24 06/01/2024 CBC WITH DIFFE RENTI AL/PL ATELE T RBC 5.35 x10e6 /uL 4.14-5 .80 normal Not Available [facility] ([facility]) [address] [place], [address], 06/02/2024 06:07:06 06/01/20 24 06/01/2024 CBC WITH DIFFE RENTI AL/PL ATELE T hemoglobin 16.0 g/dL 13.0-1 7.7 normal Not Available [facility] ([facility]) [address] [place], [address], 06/02/2024 06:07:06 06/01/20 24 06/01/2024 CBC WITH DIFFE RENTI AL/PL ATELE T hematocrit 49.7 % 37.5-5 1.0 normal Not Available [facility] ([facility]) [address] [place], [address], 06/02/2024 06:07:06 06/01/20 24 06/01/2024 CBC WITH DIFFE RENTI AL/PL ATELE T MCV 93 fL 79-97 normal Not Available [facility] ([facility]) [address] [place], [address], 06/02/2024 06:07:06 06/01/20 24 06/01/2024 CBC WITH DIFFE RENTI AL/PL ATELE T MCH 29.9 pg 26.6-3 3.0 normal Not Available [facility] ([facility]) [address] [place], [address], 06/02/2024 06:07:06 06/01/20 24 06/01/2024 CBC WITH DIFFE RENTI AL/PL ATELE T MCHC 32.2 g/dL 31.5-3 5.7 normal Not Available [facility] ([facility]) [address] [place], [address], 06/02/2024 06:07:06 06/01/20 24 06/01/2024 CBC WITH DIFFE RENTI AL/PL ATELE T RDW 12.2 % 11.6-1 5.4 Not Available [facility] ([facility]) [address] [place], [address], 06/02/2024 06:07:06 06/01/20 24 06/01/2024 CBC WITH DIFFE RENTI AL/PL ATELE T platelets 231 x10e3 /uL 150-45 0 normal Not Available [facility] ([facility]) [address], [place], [address], 06/02/2024 06:07:06 06/01/20 24 06/01/2024 CBC WITH DIFFE RENTI AL/PL ATELE T neutrophils 53 % not estab. normal Not Available [facility] ([facility]) [address], [place], [address], 06/02/2024 06:07:06 06/01/20 24 06/01/2024 CBC WITH DIFFE RENTI AL/PL ATELE T lymphs 36 % not estab. normal Not Available [facility] ([facility]) [address], [place], [address], 06/02/2024 06:07:06 06/01/20 24 06/01/2024 CBC WITH DIFFE RENTI AL/PL ATELE T monocytes 8 % not estab. normal Not Available [facility] ([facility]) [address], [place], [address], 06/02/2024 06:07:06 06/01/20 24 06/01/2024 CBC WITH DIFFE RENTI AL/PL ATELE T eos 2 % not estab. normal Not Available [facility] ([facility]) [address], [place], [address], 06/02/2024 06:07:06 06/01/20 24 06/01/2024 CBC WITH DIFFE RENTI AL/PL ATELE T basos 1 % not estab. normal Not Available [facility] ([facility]) [address], [place], [address], 06/02/2024 06:07:06 06/01/20 24 06/01/2024 CBC WITH DIFFE RENTI AL/PL ATELE T immature cells CERTIFIED INDOOR ENVIRONMENTALIST Not Available [facility] ([facility]) [address] [place], [address], 06/02/2024 06:07:06 06/01/20 24 06/01/2024 CBC WITH DIFFE RENTI AL/PL ATELE T neutrophils (absolute) 3.0 x10e3 /uL 1.4-7. 0 normal Not Available [facility] ([facility]) [address] [place], [address], 06/02/2024 06:07:06 06/01/20 24 06/01/2024 CBC WITH DIFFE RENTI AL/PL ATELE T lymphs (absolute) 2.1 x10e3 /uL 0.7-3. 1 normal Not Available [facility] ([facility]) [address] [place], [address], 06/02/2024 06:07:06 06/01/20 24 06/01/2024 CBC WITH DIFFE RENTI AL/PL ATELE T monocytes(ab solute) 0.5 x10e3 /uL 0.1-0. 9 normal Not Available [facility] ([facility]) [address] [place], [address], 06/02/2024 06:07:06 06/01/20 24 06/01/2024 CBC WITH DIFFE RENTI AL/PL ATELE T eos (absolute) 0.1 x10e3 /uL 0.0-0. 4 normal Not Available [facility] ([facility]) [address] [place], [address], 06/02/2024 06:07:06 06/01/20 24 06/01/2024 CBC WITH DIFFE RENTI AL/PL ATELE T baso (absolute) 0.1 x10e3 /uL 0.0-0. 2 normal Not Available [facility] ([facility]) [address] [place], [address], 06/02/2024 06:07:06 06/01/20 24 06/01/2024 CBC WITH DIFFE RENTI AL/PL ATELE T immature granulocytes 0 % not estab. Not Available [facility] ([facility]) [address], [place], [address], 06/02/2024 06:07:06 06/01/20 24 06/01/2024 CBC WITH DIFFE RENTI AL/PL ATELE T immature grans (abs) 0.0 x10e3 /uL 0.0-0. 1 Not Available [facility] ([facility]) [address], [place], [address], 06/02/2024 06:07:06 06/01/20 24 06/01/2024 CBC WITH DIFFE RENTI AL/PL ATELE T NRBC CERTIFIED INDOOR ENVIRONMENTALIST Not Available [facility] ([facility]) [address], [place], [address], 06/02/2024 06:07:06 06/01/20 24 06/01/2024 CBC WITH DIFFE RENTI AL/PL ATELE T hematology comments: CERTIFIED INDOOR ENVIRONMENTALIST Not Available [facility] ([facility]) [address], [place], [address], 06/02/2024 06:07:06 06/01/20 24 06/01/2024 COMP. METAB OLIC PANEL (14) glucose 101 mg/dL 70-99 above high normal Not Available [facility] ([facility]) [address], [place], [address], 06/02/2024 06:07:07 06/01/20 24 06/01/2024 COMP. METAB OLIC PANEL (14) BUN 13 mg/dL 6-24 normal Not Available [facility] ([facility]) [address], [place], [address], 06/02/2024 06:07:07 06/01/20 24 06/01/2024 COMP. METAB OLIC PANEL (14) creatinine 1.16 mg/dL 0.76-1 .27 normal Not Available [facility] ([facility]) [address], [place], [address], 06/02/2024 06:07:07 06/01/20 24 06/01/2024 COMP. METAB OLIC PANEL (14) eGFR 75 mL/mi n/1.7 3 >59 normal Not Available [facility] ([facility]) [address] [place], [address], 06/02/2024 06:07:07 06/01/20 24 06/01/2024 COMP. METAB OLIC PANEL (14) BUN/creatini ne ratio 11 9-20 normal Not Available [facility] ([facility]) [address], [place], [address], 06/02/2024 06:07:07 06/01/20 24 06/01/2024 COMP. METAB OLIC PANEL (14) sodium 142 mmol/ L 134-14 4 normal Not Available [facility] ([facility]) [address], [place], [address], 06/02/2024 06:07:07 06/01/20 24 06/01/2024 COMP. METAB OLIC PANEL (14) potassium 4.2 mmol/ L 3.5-5. 2 normal Not Available [facility] ([facility]) [address], [place], [address], 06/02/2024 06:07:07 06/01/20 24 06/01/2024 COMP. METAB OLIC PANEL (14) chloride 104 mmol/ L 96-106 normal Not Available [facility] ([facility]) [address] [place], [address], 06/02/2024 06:07:07 06/01/20 24 06/01/2024 COMP. METAB OLIC PANEL (14) carbon dioxide, total 24 mmol/ L 20-29 normal Not Available [facility] ([facility]) [address] [place], [address], 06/02/2024 06:07:07 06/01/20 24 06/01/2024 COMP. METAB OLIC PANEL (14) calcium 8.8 mg/dL 8.7-10 .2 normal Not Available [facility] ([facility]) [address] [place], [address], 06/02/2024 06:07:07 06/01/20 24 06/01/2024 COMP. METAB OLIC PANEL (14) protein, total 6.3 g/dL 6.0-8. 5 normal Not Available [facility] ([facility]) [address] [place], [address], 06/02/2024 06:07:07 06/01/20 24 06/01/2024 COMP. METAB OLIC PANEL (14) albumin 4.2 g/dL 3.8-4. 9 normal Not Available [facility] ([facility]) [address] [place], [address], 06/02/2024 06:07:07 06/01/20 24 06/01/2024 COMP. METAB OLIC PANEL (14) globulin, total 2.1 g/dL 1.5-4. 5 Not Available [facility] ([facility]) [address] [place], [address], 06/02/2024 06:07:07 06/01/20 24 06/01/2024 COMP. METAB OLIC PANEL (14) bilirubin, total 1.0 mg/dL 0.0-1. 2 normal Not Available [facility] ([facility]) [address] [place], [address], 06/02/2024 06:07:07 06/01/20 24 06/01/2024 COMP. METAB OLIC PANEL (14) alkaline phosphatase 74 IU/L 44-121 normal Not Available [facility] ([facility]) [address] [place], [address], 06/02/2024 06:07:07 06/01/20 24 06/01/2024 COMP. METAB OLIC PANEL (14) AST (SGOT) 22 IU/L 0-40 normal Not Available [facility] ([facility]) [address] [place], [address], 06/02/2024 06:07:07 06/01/20 24 06/01/2024 COMP. METAB OLIC PANEL (14) ALT (SGPT) 20 IU/L 0-44 normal Not Available [facility] ([facility]) [address] [place], [address], 06/02/2024 06:07:07 06/01/20 24 06/01/2024 LIPID PANEL cholesterol, total 178 mg/dL 100-19 9 normal Not Available [facility] ([facility]) [address] [place], [address], 06/02/2024 06:07:08 06/01/20 24 06/01/2024 LIPID PANEL triglyceride s 97 mg/dL 0-149 normal Not Available [facility] ([facility]) [address] [place], [address], 06/02/2024 06:07:08 06/01/20 24 06/01/2024 LIPID PANEL HDL cholesterol 36 mg/dL >39 below low normal Not Available [facility] ([facility]) [address] [place], [address], 06/02/2024 06:07:08 06/01/20 24 06/01/2024 LIPID PANEL VLDL cholesterol joss 18 mg/dL 5-40 Not Available [facility] ([facility]) [address] [place], [address], 06/02/2024 06:07:08 06/01/20 24 06/01/2024 LIPID PANEL LDL chol calc ([facility]) 124 mg/dL 0-99 above high normal Not Available [facility] ([facility]) [address], [place], [address], 06/02/2024 06:07:08 06/01/20 24 06/01/2024 LIPID PANEL LDL calc comment: CERTIFIED INDOOR ENVIRONMENTALIST Not Available [facility] ([facility]) [address], [place], [address], 06/02/2024 06:07:08 06/01/20 24 06/01/2024 PROST ATE-S PECIF IC AG prostate specific Ag 2.7 NG/mL 0.0-4. 0 normal Shahla ECLIA metho dolog y. Accor ding to the Ameri can Urolo gical Assoc iatio n, Serum PSA shoul d decre ase and remai n at undet ectab le level s after radic al prost atect kota. The AUA defin es bioch emica l recur rence as an initi al PSA value 0.2 ng/mL or great er follo wed by a subse quent confi rmato ry PSA value 0.2 ng/mL or great er. Value s obtai yoli with diffe rent assay metho ds or kits canno t be used inter marie eajeff . Resul ts canno t be inter prete d as absol dane evide nce of the prese nce or absen ce of [facility] se. Not Available [facility] ([facility]) [address], [place], [address], 06/02/2024 06:07:08 06/01/20 24 06/02/2024 VITAM IN D, 25-HY DROXY vitamin D, 25-hydroxy 28.0 NG/mL 30.0-1 00.0 below low normal Vitam in D defic iency has been defin ed by the Insti tute of Medic ine and an Endoc rine Socie ty pract ice guide line as a level of serum 25-OH vitam in D less than 20 ng/mL (1,2) . The Endoc rine Socie ty went on to furth er defin e vitam in D insuf ficie ncy as a level betwe en 21 and 29 ng/mL (2). 1. IOM (Inst itute of Medic ine). 2010. Shannana ry refer ence elias es for calci um and DCherelle curiel DC: [facility] . 2. Holic k MF, Binkl ey [place], Bisch off-F errar i MACKENZIE, et al. Evalu ation , treat ment, and preve ntion of vitam in D defic iency : an Endoc rine Socie ty clini joss pract ice guide line. JCEM. 2010; 96(7) :1911 -30. Not Available [facility] ([facility]) [address], [place], [address], 06/02/2024 06:07:09 04/15/20 24 04/14/2024 US, chest No observ ation record ed. [email or web address] Not Available 05/07 15:31:13 Result Notes None recorded. Problems Name Problem SNOMED Code Status Onset Date Resolution Date Notes Provider Name and Address Organization Details Recorded Time Vertigo 916172593 Completed 08/14/2016 Denita morris[facility] 7 10:40:21 History of Lyme disease 912449818 Completed 07/13/2022 MISSY Kincaid, [facility] 3 09:15:53 Body mass index 25-29 - overweigh t 379267519 Completed 06/04/2018 Tito Hdz MD [address] [facility] [address], [place], [address], [facility] [place] 8 10:03:27 Thyroid nodule 946502259 Completed 01/17/2016 Tito Hdz MD [address] [facility] [address], [place], [address], [facility] [place] 6 06:06:56 Tinnitus 22154580 Completed 201508/14/2016 Denita morris [facility] [place] 7 10:41:15 Acute sinusitis 74657237 Completed 201605/30/2017 Tito Hdz MD [address] [address], [place], [address], [facility] 7 15:32:08 Chronic sinusitis 08678987 Completed 201606/04/2018 Tito Hdz MD [address] [address], [place], [address], [facility] 8 10:03:41 Adult health examinati on Completed 201605/30/2017 Tito Hdz MD [address] [address], [place], [address], [facility] 7 16:01:53 Knee pain Completed 201805/31/2019 Tito Hdz MD [address] [address], [place], [address], [facility] 9 10:01:15 Osteoarth ritis of right knee joint 456303847829 100 Active 2018 Tito Hdz MD [address] [address], [place], [address], [facility] 9 07:02:46 Sprain of posterior cruciate ligament of knee 536815287 Completed 201806/01/2020 Tito Hdz MD [address] [facility], [place], [address], [facility] 0 10:22:03 Chondroma lacia of patella 47261219 Completed 201806/01/2020 Tito Hdz MD [address] [facility] [address], [place], [address], [facility] 0 10:22:34 Hearing loss 66770236 Active 2018 Tito Hdz MD [address], [address], [facility] 9 10:03:02 Bilateral tinnitus 455288038277 2 Active 2018 Tito Hdz MD [address] [facility] [address], [place], [address], [facility] 9 10:03:10 Obesity 284650247 Completed 201806/01/2020 Tito Hdz MD [address] [facility] [address], [place], [address], [facility] 0 10:20:22 Family history of Cardiovas cular disease 356212002 Active 2019 Tito Hdz MD [address] [facility] [address], [place], [address], [facility] 0 10:30:03 Adjustmen t disorder with depressed mood 69573397 Completed 201905/09/2024 Tito Hdz MD [address] [facility] [address], [place], [address], [facility] 4 23:21:00 Achilles tendiniti s 17140954 Completed 202006/13/2022 Tito Hdz MD [address] [facility], [place], [address], [facility] 3 16:08:11 Calcaneal spur 69389286 Active 2020 Tito Hdz MD [address] [facility] [address], [place], [address], [facility] 1 15:52:22 COVID-19 048281697 Completed 202106/13/2022 Tito Hdz MD [address] [facility] [address], [place], [address], [facility] 3 16:00:26 Sensorine ural hearing loss 44081237 Active 2021 Tito Hdz MD [address] [facility] [address], [place], [address], [facility] 2 19:37:34 Attention deficit hyperacti vity disorder, predomina ntly inattenti ve type 13527083 Active 2022 Tito Hdz MD [address] [facility] [address], [place], [address], [facility] 3 13:36:04 Diaphragm atic eventrati on 64755809 Active 2022 Tito Hdz MD [address] [facility] [address], [place], [address], [facility] 3 10:19:46 Left Achilles tendiniti s 111976311179 102 Active 2022 Tito Hdz MD [address] [facility] [address], [place], [address], [facility] 3 10:01:26 Impaired fasting glycemia 595706337 Active 2023 Tito Hdz MD [address] [facility] [address], [place], [address], [facility] 4 06:32:35 Acute deep venous thrombosi s of left lower extremity 760951858653 104 Active 2023 Tito Hdz MD [address] [facility] [address], [place], [address], [facility] 4 22:39:54 Umbilical hernia 849426973 Active 2023 Tito Hdz MD [address] [facility] [address], [place], [address], [facility] 4 09:18:14 Moderate major depressio n, single episode 90437438 Active 2023 Tito Hdz MD [address] [facility], [place], [address], [facility] 15:49:23 Problem Notes None recorded. Procedures Surgical History Date Name Laterality Status Provider Name and Address Organization Details Recorded Time 01/07/20 24 repair of umbilical hernia completed Tito Hdz MD [address] [address], [place], [address], [facility] 01/16/2024 21:31:35 06/04/20 23 repair of tendo achilles completed Chana Krishnan [facility] 07/09/2023 14:14:47 02/08/20 22 tooth extraction completed Anali molina [facility] 09/09/2023 13:19:42 11/23/19 20 vasectomy completed Tito Hdz MD [address], [address], [facility] 11/26/2019 12:39:28 06/04/20 18 Cerumen Removal completed Tito Hdz MD [address], [address], [facility] 06/04/2018 10:24:16 05/11/20 18 Oral surgery procedure completed Dionne Stewart [facility] 06/04/2018 09:40:01 11/27/18 71 Circumcision completed Pebbles Barros [facility] 06/04/2021 08:46:28 Oral surgery procedure completed Chana Krishnan [facility] 06/13/2022 15:40:35 Imaging Results Imaging Date Name Status LastModified by Organiz ation Details LastModified Time 04/14/2024 US, chest completed becky Information no t available 05/07/2024 15:31:13 Procedure Notes None recorded. Medical Equipment None Reported. Allergies Allergen ID Allergen Name Allergen Category Reaction Reaction Severity Criticality Documentation Date Start Date Code Code System Note Provider Name and Address Organization Details Recorded Time 37765 sertralin e medicatio n abdominal pain diarrhea Not available Not available Not available 04/15/2024 30553 RxNorm Anali garcia MA [facility] 4 11:23:14 Medications Name Sig Start Date Stop [...] MOUTH EVERY 6 HOURS NEEDED FOR PAIN 06/13 completed Not Available Not Available Not [...] height Body mass index (BMI) Body weight Heart rate Oxygen saturation Oxygen saturation in Arterial blood by Pulse oximetry Body temperature Systolic blood pressure Diastolic blood pressure Provider Name and Address Organization Details Last Updated DateTime 4 185.42 cm 29.8 kg/m2 042640. 58 g 74 /min 97 % 97 % 98.3 [degF] 111 mm[Hg] 71 mm[Hg] Chana Krishnan MA [facility] 15:04:41 Date Recorded Body height Provider Name an d Address Organization Details Last Updated DateTime 04/09/2024 185.42 cm Shantel Doty MA [facility] 04/09/2024 14:55:55 Date Recorded Body height Body mass index (BMI) Body weight Heart rate Oxygen saturation Oxygen saturation in Arterial blood by Pulse oximetry Body temperature Systolic blood pressure Diastolic blood pressure Provider Name and Address Organization Details Last Updated DateTime 4 185.42 cm 28.8 kg/m2 16560.1 4 g 81 /min 97 % 97 % 97.9 [degF] 115 mm[Hg] 69 mm[Hg] Anali garcia MA [facility] 4 11:21:18 Date Recorded Body height Body mass index (BMI) Body weight Oxygen saturation Oxygen saturation in Arterial blood by Pulse oximetry Heart rate Body temperature Systolic blood pressure Diastolic blood pressure Provider Name and Address Organization Details Last Updated DateTime 4 185.42 cm 29.9 kg/m2 766558. 68 g 98 % 98 % 78 /min 98.7 [degF] 134 mm[Hg] 77 mm[Hg] Alberta Mena MA [facility] 4 12:59:28 Social History Question Answer Notes LastModified by Organizat ion Details LastModified Time Tobacco Smoking Status Never Smoker Not Available [facility] 04/11/2020 03:36:41 Do You Have An Advance Directive? Yes HCP- -Sharona Information not available 07/09/2023 What Is Your Level Of Alcohol Consumption? Occasional [id number] Information not available 04/11/2020 Is Blood Transfusion Acceptable In An Emergency? Yes [id number] Information not available 04/11/2020 What Is Your Level Of Caffeine Consumption? None Decaf Information not available 07/09/2023 How Much Tobacco Do You Chew? None [id number] Information not available 04/11/2020 Are You Currently Employed? Yes [employer] [facility] [employer] Information not available 06/13/2022 What Type Of Diet Are You Following? VEGETARIAN [id number] Information not available 04/11/2020 Which Illicit Or Recreational Drugs Have You Used? None [id number] Information not available 04/11/2020 Do You Or Have You Ever Used E-cigarettes Or Vape? 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 With Others (Sharona), Alyssa, 3 Children, 2 Cats And Dog Information [...] Of Your Most Recent Tobacco Screening? 05/31/2024 [email or web address] Information not available 05/31/2024 How Many Children Do You Have? 3 [id number] Information not available 04/11/2020 Do You Use [...] Age Did You Start Smoking Tobacco? 1 [id number] Information not available 04/11/2020 Are You Passively Exposed To Smoke? No Information not available 12/27/2015 Do You Or Have You Ever Used Smokeless Tobacco? Never Used Smokeless Tobacco [id number] Information not available 04/11/2020 How Much Tobacco Do You Smoke? No [id number] Information not available 04/11/2020 Do You Use Any Illicit Or Recreational Drugs? No Information not available 07/09/2023 Do You Use Sunscreen Routinely? Yes [id number] Information not available 04/11/2020 How Many Years Have You Smoked Tobacco? 0 [id number] Information not available 04/11/2020 Do You Or Have You Ever Used Any Other Forms Of Tobacco Or Nicotine? No Information not available 07/09/2023 Sex: Unknown Functional Status Question Answer Note LastModified by Organizat ion Details LastModified Time Are you able to walk? [email or web address] Information not available 07/09/2023 Are you able to care for yourself? Yes [id number] Information not available 04/11/2020 What is your exercise level? Occasional 07/09/23 upper strength exercises due to foot surgery Information not available 07/09/2023 Mental Status None recorded. Family History Relationship Description Onset Age of this Age Resolved Age Notes LastModified by Organization Details LastModified Time Unspecified Relation Adopted [email or web address] Not available 2023 13:50:23 Unspecified Relation Alcohol abuse [email or web address] Not available 2019 09:48:24 Unspecified Relation Substance abuse [email or web address] Not available 2020 08:43:15 Mother Heart disease [email or web address] Not available 06/13 16:09:10 Medical History Condition Response Ear or Hearing Problems Y Obesity N Vision or Eye Problems Y ADHD Y Chicken Pox Y Immunizations Vaccine Type Date Status Note Provider Name and Address Organization Details Recorded Time Influenza, MDCK, quadrivalent, preservative 03/03/20 20 completed MISSY Luz [facility] [place] 06/04/2021 08:46:48 COVID-19 vaccine, vector-nr, rS-Ad26, PF, 0.5 mL 08/16/19 21 completed MISSY Luz, [facility] 06/04/2021 08:46:48 COVID-19, mRNA, LNP-S, PF, 30 mcg/0.3 mL dose 04/01/20 21 completed MISSY Kincaid, [facility] 08/27/2022 15:29:55 Tdap 12/27/19 16 completed MISSY Bowling, [facility] 06/13/2022 15:28:54 COVID-19, mRNA, LNP-S, bivalent, PF, 50 mcg/0.5 mL or 25mcg/0.25 mL dose 05/26/20 22 completed MISSY Bowling, [facility] 06/13/2022 15:28:54 Influenza, MDCK, quadrivalent, PF 05/26/20 22 completed MISSY Kincaid, [facility] 07/13/2022 10:24:18 Influenza, split virus, quadrivalent, PF 04/01/20 21 completed MISSY Kincaid, [facility] 08/27/2022 15:29:55 Tdap 10/15/19 24 completed MISSY Mcdonald, [facility] 10/20/2023 15:37:28 Influenza, split virus, quadrivalent, PF 05/30/20 17 cancelled patient objection Not Available [facility] 06/26/2019 02:22:13 Influenza, split virus, quadrivalent, PF 06/04/20 18 cancelled patient objection Not Available [facility] 06/26/2019 02:22:15 Influenza, split virus, trivalent, PF 04/15/20 24 completed MISSY Bashir, [facility] 04/15/2024 12:24:53 Past Encounters Encounter ID Performer Location Encounter Start Date Encounter Closed Date Diagnosis/Indication Diagnosis SNOMED-CT Code Diagnosis ICD10 Code [id number] Richard Moscoso MD Main Office [address] [facility] [place] [address] 08/22/2015 15:16:22 08/22/2015 16:48:14 Vertigo 625110736 R42 [id number] Tito Hdz MD Main Office [address] [address] [place] [address] 12/27/2015 14:57:45 12/27/2015 16:20:20 Adult health examination 011216073 Z00.01 Body mass index 25-29 - overweight 763244511 E66.3 Vertigo 216607527 R42 Administra tion of diphtheria, pertussis, and tetanus vaccine 485753496 Z23 Thyroid nodule 238518861 E04.1 [id number] Tito Hdz MD Main Office [address] [address] [place] [address] 04/04/2016 15:14:50 04/04/2016 16:21:59 Tinnitus 35447487 H93.13 Dizziness 406685252 R42 [id number] Tito Hdz MD Main Office [address] [address] [place] [address] 05/23/2016 15:24:13 05/23/2016 16:15:29 Vertigo 222653432 R42 Cough 52678061 R05 Wheezing 36319600 R06.2 [id number] Eleanor Martinez Main Office [address] [address] [place] [address] 08/06/2016 15:57:21 08/06/2016 16:25:25 Acute sinusitis 03096486 J01.90 [id number] Tito Hdz MD Main Office [address] [address] [place] [address] 08/14/2016 10:23:20 08/14/2016 11:32:01 Recurrent sinusitis 885044731 J32.9 Impacted cerumen 8283080 6 H61.21 [id number] Tito Hdz MD Main Office [address] [address] [place] [address] 11/29/2016 09:57:27 11/29/2016 11:02:43 Chronic sinusitis 87200603 J32.9 [id number] Tito Hdz MD Main Office [address] [address] [place] [address] 05/30/2017 15:06:12 05/30/2017 15:58:13 Needs influenza immunization 254859363 Z23 Adult heal th examination 704669127 Z00.01 Chronic sinusitis 112571 00 J32.9 Body mass index 25-29 - overweight 867488572 E66.3 Z68.25 [id number] Forest Bradshaw MD Main Office [address] [address] [place] [address] 01/28/2018 16:38:40 01/28/2018 17:17:47 Patient encounter status 202940207 Z30.09 Acute back pain with sciatica 251344049 M54.42 [id number] Tito Hdz MD Main Office [address] [address] [place] [address] 03/10/2018 15:30:14 03/10/2018 16:29:09 Atypical pneumonia 707763548 J18.9 Wheezing 42823672 R06.2 [id number] Dionne Stewart MA Main Office [address] [address] [place] [address] 06/04/2018 09:10:38 06/04/2018 10:26:28 Adult health examination 366408523 Z00.00 Needs infl uenza immunization 416086065 Z23 Obesity 819448357 E66.9 Z68.30 Impacted c erumen of bilateral ears 2235832767 798461 H61.23 Asymmetric al hearing loss 695354974 H91.92 [id number] Tito Hdz MD Main Office [address] [address] [place] [address] 06/30/2018 12:41:08 06/30/2018 13:19:38 Low back strain 866208599 S39.012A [id number] Tito Hdz MD Main Office [address] [address] [place] [address] 12/24/2018 09:52:40 12/24/2018 10:49:36 Plantar fasciitis 964615845 M72.2 Pain in right knee 10770 79049 55476 M25.561 [id number] Tito Hdz MD Main Office [address] [address] [place] [address] 05/31/2019 09:22:21 05/31/2019 10:32:36 Adult health examination 601103613 Z00.00 Obesity 240871933 E66.9 Z68.30 Hearing loss 38966853 H9 1.92 [id number] Tito Hdz MD Main Office [address] [facility] [address] [place] [address] 07/13/2019 10:56:53 07/13/2019 11:55:25 Right Achilles tendinitis 5064129454 04054 M76.61 [id number] Tito Hdz MD Main Office [address] [facility] [address] [facility] [place] [address] 06/01/2020 09:28:43 06/01/2020 10:47:38 Adult health examination 390574788 Z00.00 Body mass index 25-29 - overweight 582904554 E66.3 Z68.29 Right Achi lles tendinitis 3681630427 73874 M76.61 Screening for malignant neoplasm of colon 689741480 Z12.11 Family his tory of Cardiovascular disease 932674186 Z82.49 Adjustment disorder with depressed mood 53289853 F43.21 Screening for malignant neoplasm of prostate 815791381 Z12.5 [id number] Jason Lux PA-C Main Office [address] [address] 06/04/2021 08:42:16 06/04/2021 10:34:32 Adult health examination 280210510 Z00.00 Hyperbilirubinemia 55213 006 E80.6 Screening for cardiovascular system disease 977240786 Z13.6 Benign pro static hyperplasia without outflow obstruction 943255343 N40.0 Screening for malignant neoplasm of colon 590758888 Z12.11 Body mass index 30+ - obesity 088183635 E66.9 Z68.30 Varicella vaccination 68 147586 Z23 Hepatitis C screening 41 4997920 Z11.59 Decreased hearing 951977 001 H91.92 Impacted c erumen in right ear 0399333696 982355 H61.21 [id number] Amara Lux PA-C [facility] [address] [facility] [address] [place] [address] 09/17/2021 10:56:10 09/17/2021 15:36:28 COVID-19 482780857 U07.1 [id number] Tito Hdz MD Main Office [address] [address] [place] [address] 06/13/2022 15:18:34 06/13/2022 16:27:48 Adult health examination 835155872 Z00.00 Screening for malignant neoplasm of colon 535077911 Z12.11 Nocturia 900032218 R35.1 Adjustment disorder with depressed mood 37341390 F43.21 Disturbanc e of attention 50846201 R41.840 Sensorineu ral hearing loss 45571550 H90.5 Body mass index 30+ - obesity 642331851 Z68.30 E66.9 Total bili glynn above reference range 4968604314 65884 R17 Attention deficit hyperactivity disorder, predominantly inattentive type 20060396 F90.0 Varicella vaccination 68 765199 Z23 Screening for cardiovascular system disease 853381218 Z13.6 [id number] ALEXANDER RUSHING MD Main Office [address] [address] [place] [address] 07/13/2022 09:16:39 07/13/2022 09:38:41 Acute bronchitis 25794271 J20.9 [id number] [address] [facility] [address] [address] [place] [address] 07/19/2022 12:32:21 07/19/2022 14:18:13 Pneumonia 836910935 J18.9 [id number] [facility] [address] [address] [place] [address] 07/26/2022 12:52:18 07/26/2022 13:50:48 Attention deficit hyperactivity disorder, predominantly inattentive type 33724426 F90.0 [id number] Jason Lux PA-C [facility] [address] [address] [place] [address] 08/27/2022 14:27:34 08/27/2022 16:43:30 Attention deficit hyperactivity disorder, predominantly inattentive type 11620864 F90.0 Pneumonia 927366411 J18. 9 [id number] Jason Lux PA-C Main Office [address] [address] [place] [address] 04/10/2023 15:00:26 04/10/2023 15:35:50 Left Achilles tendinitis 9070525652 22442 M76.62 [id number] Jason Lux PA-C Main Office [address] [address] [place] [address] 07/09/2023 13:49:21 07/09/2023 15:26:19 Adult health examination 870676292 Z00.00 Screening for malignant neoplasm of colon 535500997 Z12.11 Left Achil les tendinitis 6342813320 42768 M76.62 Cough 15161299 R05.9 Mixed hyperlipidemia 267 419946 E78.2 Attention deficit hyperactivity disorder, predominantly inattentive type 70030362 F90.0 Body mass index 25-29 - overweight 146171001 E66.3 Z68.29 Dyspnea 949872237 R06.00 Acute bronchitis 7034469 2 J20.9 [id number] Forest Bradshaw MD Main Office [address] [address] [place] [address] 07/19/2023 10:23:05 07/19/2023 10:40:24 Reactive airway disease 4198620544 06 J45.909 Persistent cough 4965857 02 R05.3 [id number] Tito Hdz MD Main Office [address] [address] [place] [address] 09/09/2023 12:49:19 09/09/2023 14:01:25 Acute deep venous thrombosis of left lower extremity 0843192978 03190 I82.402 [id number] Eleanor Martinez Main Office [address] [address] [place] [address] 10/20/2023 15:28:57 10/20/2023 15:58:38 Facial laceration 231014143 S01.81XA Accidental ly struck by or against stationary object 910891254 W22.8XXA [id number] Tito Hdz MD Main Office [address] [address] [place] [address] 12/09/2023 11:26:45 12/09/2023 12:11:25 Acute deep venous thrombosis of left lower extremity 1464720605 03641 I82.402 Umbilical mass 152012646 R19.05 Attention deficit hyperactivity disorder, predominantly inattentive type 06209706 F90.0 [id number] Tito Hdz MD Main Office [address] [place] [address] 03/09/2024 14:42:04 03/09/2024 15:31:46 Acute deep venous thrombosis of left lower extremity 7555472347 68072 I82.402 Attention deficit hyperactivity disorder, predominantly inattentive type 16187481 F90.0 Needs infl uenza immunization 652759544 Z23 [id number] Tito Hdz MD [facility] [address] [place] [address] 04/09/2024 14:51:53 04/09/2024 16:30:31 Moderate major depression, single episode 01322421 F32.1 Panic disorder 326943409 F41.0 Generalize d anxiety disorder 38485256 F41.1 [id number] KIMBERLY TSE Main Office [address] [place] [address] 04/15/2024 11:07:45 04/15/2024 11:43:12 Chest pain 07829449 R07.9 Needs infl uenza immunization 223667324 Z23 Moderate m ajor depression, single episode 86409146 F32.[id number] [facility] [address] [address] [place] [address] 05/07/2024 14:29:22 05/10/2024 14:09:10 Moderate major depression, single episode 02126373 F32.1 Attention deficit hyperactivity disorder, predominantly inattentive type 88237102 F90.0 [id number] Jason Lux PA-C Main Office [address] [place] [address] 05/31/2024 12:42:40 05/31/2024 13:49:31 Adult health examination 918111318 Z00.00 Screening for malignant neoplasm of colon 915978332 Z12.11 Left Achil les tendinitis 2995557145 45847 M76.62 Mixed hyperlipidemia 267 057940 E78.2 Attention deficit hyperactivity disorder, predominantly inattentive type 21616994 F90.0 Body mass index 25-29 - overweight 421281861 E66.3 Z68.29 Nocturia 467539448 R35.1 Vitamin D deficiency 347 42434 E55.9 Acute deep venous thrombosis of left lower extremity 0224470427 89589 I82.402 Itching of skin 73274304 0 L29.9 Hearing loss 18504432 H9 1.92 Single epi sode of major depression in full remission 57287595 F32.5 Health Concerns Section Related Observation LastModified by Organization Detai ls LastModified Time None Recorded Concern Status LastModified by Organization Details LastModified Time None Recorded Advance Directives Directive Y: HCP- -Sharona Payers Encounter Date Sequence Insurance Name Policy Number Policy Ashley Covered Member ID Ashley Member ID Guarantor Name 03/09/2024 1 *SELF PAY* Natalia aponte [employer] 04/09/2024 1 [employer] [id number] Charles Yeager Camacho [id number] Charles Camacho 04/15/2024 1 [employer] [id number] Donald Camacho [id number] Charles Camacho 05/07/2024 1 [employer] [id number] Donald Camacho [id number] Charles Camacho 05/31/2024 1 [employer] [id number] Donald Camacho [id number] Charles Camacho Notes Date Note Type Note Provider Name and Address Organization Details Recorded Time 03/09/2024 text/html ADHDReported bypatient.Organizatio n:good organization Appetite:decreased appetite Mood:stable Sleep:good; adequate sleep, not tired at school Friends:well connected with peers Attention:able to focusNotes:Using stimulant consistently but not daily with significant help in symptoms.Abdominal PainReported bypatient.Location:pe riumbilical Quality:pain;bloating Severity:mild Duration:started: (11/21)Notes:s/p umbilical hernia repair on 12/19. Remains on anticoagulation.Edema Reported bypatient.Quality:leg s do not swell equally Severity:moderate Onset/Timing:gradual onset Context:no prior history of edema; no recent travel Associated Symptoms:no shortness of breathNotes:Had left achilles surgery on 06/04/23, in boot x 2 months undergoing PT, referred for doppler because of swelling which was positive for extensive left DVT femoral common femoral, peroneal and one gastroc vein of LLE. No prior history of thromboembolic disease or known family history, but he is adopted so info is limited.Follow up d-dimer level was normal, but LE doppler showed persistent/unchanged clot burden.Seen by vascular since last visit and plan is to have follow up LE doppler this month and decide whether to d/c anticoagulation based on result. Tito Hdz MD [address] [facility] [address], [place], [address], [facility] 03/24/2024 22:36:16 04/09/2024 text/html Anxiety/Depressi onRep orted bypatient.Quality:moo d worse;increased anxiety;panic symptoms Severity:unable to maintain relationships;interfe rence with sleep;interference with work Context:relationship stressNotes:Having a significant amount of increased stress in his relationship with Sharona. Has a long established polyamorous relationship with her, Jenna and Jonathan, but has met someone new and this is creating strife between him and Sharona. Undergoing both individual and couples therapy but symptoms have become extremely limiting and a challenge to deal with. His children have been on sertraline and tolerate it well. Tito Hdz MD [address] [facility] [address], [place], [address], [facility] 04/15/2024 12:33:37 04/15/2024 text/html Charles is a 53y r old M who presents for a hospital f/u. PMH of DVT- on eliquis. Follow Up Hospital: [facility] Medicaladmit date: 04/14/24Date of discharge: 04/14/24 Charles was evaluated [place] [facility] [place]. Symptoms of midsternal chest pain while walking, radiated up to neck and down to kidneys/low back. Was given aspirin by EMS- symptoms started to subside. EKG, chest x-ray, and lab work was unremarkable. No signs of ischemia, no leukocytosis/anemia, or gross electrolyte abnormalities. KIBMERLY TSE [address] [facility] [address], [place], [address], [facility] 04/15/2024 11:42:37 05/07/2024 text/html Anxiety/Depressi onRep orted bypatient.Quality:sym ptoms improved Severity:denies suicidal ideations;unable to maintain relationships Duration:symptoms lasting over 2 weeks; stablizing Context:major life stressors;family problems;relationship stress Associated Symptoms:denies homicidal ideations; mood goodNotes:Having a significant amount of increased stress in his relationship with Sharona and others. Has a long established polyamorous relationship with her, Jenna and Jonathan, but has met someone new and this is creating strife. Has pursued both individual and couples therapy but symptoms had become limiting.Since last visit he was started on sertraline which was switched to escitalopram following ED eval for chest/abdominal pain. No recurrence since. Tito Hdz MD [address] [address], [place], [address], [facility] 05/09/2024 23:22:00 05/31/2024 text/html here for annual pe. Jason Lux PA-C [address] [address], [place], [address], [facility] 05/31/2024 13:52:16
--- OUTSIDE RECORDS SUMMARY | 2024-06-10 16:19 | XMS_ITS | Continuity of Care Document ---
Author Organization [facility], Main Office Address [address] [place] [address] Care Team Providers Care Health And Safety Trainer Name Role Phone TITO HDZ Primary Care Provider TAMI WORRELL Power Press Supervisor [phone] KUSH DAHL Phys. Med. [facility] Rehab JAYDA LOCK Urologist [facility] Orthopedic Surgeon CAT PINEDA Orthopedic Surgeon [phone] [facility] Sample Grinder [facility] Granite Worker [facility] Vascular Surgeon [phone] Assessment Encounter Date Assessment Date Assessment LastModified by Organization Details LastModified Time 04/15/2024 04/15/2024 Discussed with patient the signs/symptom s warranted for a return to office visit and/or an ER visit. Patient understood and agreed with the plan. Not available 04/15/2024 10:55:40 Plan of Treatment Reminders Order Date Submit Date Provider Last Modified By Organization Details Last Modified Time Details Appointments telehe alth20 2024 02:45P Chris Hdz MD Not available Not available Not available Lab None record ed. Referral behavi oral health referr al - for depres abdirahman and anxiet y 2023 024 [email or web address], [address], [facility] [address], [place], [address], 04/15/2024 11:43:13 Procedures None record ed. Surgeries None record ed. Imaging exerci se stress test - chest pain while walkin g 2023 carlos manuel [facility], [address], [address], [place], [address], 05/31/2024 09:24:18 Medication Orders escita lopram 10 mg tablet 2023 024 [id number], [address], [place], [place], [id number], 05/31/2024 13:25:32 Patient TargetsNo targets recorded. Patient Instructions Encounter Date Encounter Id Patient Instructions Last Modified By Organization Details Last Modified Time 04/15/2024 [id number] chest pain: care instructions Not available 04/15/2024 11:33:05 At community hospital follow up visit, all current and discharge medications (OTC, herbal therapies, supplements) reviewed and reconciled with patient and or caregiver, including potential side effects, drug interactions, instructions, and the consequences of not taking medication. Reviewed potential barriers to medication adherence, such as side effects from medication or cost of medication. [email or web address] Not available 04/15/2024 11:12:14 Reason for Referral Behavioral Health Referral f or Moderate major depression, single episode for depression and anxiety Referring Physician: Aidee Farris, Family Medicine, Encounter Date: 04/15/2024 Results Created Date Observation Date Name Description Value Unit Range Abnormal Flag Note LastModifiedBy Organization Detail LastModifiedTime 04/15/2004/14/2024 US, chest No observ ation record ed. [email or web address] Not Available 05/07 15:31:13 Result Notes None recorded. Problems Name Problem SNOMED Code Status Onset Date Resolution Date Notes Provider Name and Address Organization Details Recorded Time Vertigo 315884293 Completed 08/14/2016 Denita morris [facility] [place] 7 10:40:21 History of Lyme disease 262282210 Completed 07/13/2022 MISSY Kincaid [place] - [facility] 3 09:15:53 Body mass index 25-29 - overweigh t 692138558 Completed 06/04/2018 Tito Hdz MD [address], [place], [address], [facility] 8 10:03:27 Thyroid nodule 455462090 Completed 01/17/2016 Tito Hdz MD [address], [place], [address], [facility] 6 06:06:56 Tinnitus 90862401 Completed 201508/14/[address] [place] [facility] 7 10:41:15 Acute sinusitis 80838940 Completed 201605/30/2017 Tito Hdz MD [address], [place], [address], [facility] 7 15:32:08 Chronic sinusitis 34132130 Completed 201606/04/2018 Tito Hdz MD [address], [address], [facility] 8 10:03:41 Adult health examinati on Completed 201605/30/2017 Tito Hdz MD [address], [address], [facility] 7 16:01:53 Knee pain Completed 201805/31/2019 Tito Hdz MD [address], [address], [facility] 9 10:01:15 Osteoarth ritis of right knee joint 505469834945 100 Active 2018 Tito Hdz MD [address], [address], [facility] 9 07:02:46 Sprain of posterior cruciate ligament of knee 397985873 Completed 201806/01/2020 Tito Hdz MD [address] [address], [place], [address], [facility] 0 10:22:03 Chondroma lacia of patella 54570188 Completed 201806/01/2020 Tito Hdz MD [address] [facility] [address], [place], [address], [facility] 0 10:22:34 Hearing loss 83262549 Active 2018 Tito Hdz MD [address] [address], [place], [address], [facility] 9 10:03:02 Bilateral tinnitus 514726484376 2 Active 2018 Tito Hdz MD [address] [address], [place], [address], [facility] 9 10:03:10 Obesity 571615830 Completed 201806/01/2020 Tito Hdz MD [address] [address], [place], [address], [facility] 0 10:20:22 Family history of Cardiovas cular disease 568754118 Active 2019 Tito Hdz MD [address] [address], [place], [address], [facility] 0 10:30:03 Adjustmen t disorder with depressed mood 57789148 Completed 201905/09/2024 Tito Hdz MD [address] [facility] [address], [place], [address], [facility] 4 23:21:00 Achilles tendiniti s 01349605 Completed 202006/13/2022 Tito Hdz MD [address], [place], [address], [facility] 3 16:08:11 Calcaneal spur 54477303 Active 2020 Tito Hdz MD [address], [place], [address], [facility] 1 15:52:22 COVID-19 177105164 Completed 202106/13/2022 Tito Hdz MD [address], [place], [address], [facility] 3 16:00:26 Sensorine ural hearing loss 01834628 Active 2021 Tito Hdz MD [address], [place], [address], [facility] 2 19:37:34 Attention deficit hyperacti vity disorder, predomina ntly inattenti ve type 95111932 Active 2022 Tito Hdz MD [address], [place], [address], [facility] 3 13:36:04 Diaphragm atic eventrati on 06210249 Active 2022 Tito Hdz MD [address], [place], [address], [facility] 3 10:19:46 Left Achilles tendiniti s 908220105245 102 Active 2022 Tito Hdz MD [address], [place], [address], [facility] 3 10:01:26 Impaired fasting glycemia 868745876 Active 2023 Tito Hdz MD [address], [place], [address], [facility] 4 06:32:35 Acute deep venous thrombosi s of left lower extremity 725460658658 104 Active 2023 Tito Hdz MD [address] [facility] [address], [place], [address], [facility] 4 22:39:54 Umbilical hernia 975621207 Active 2023 Tito Hdz MD [address] [address], [place], [address], [facility] 4 09:18:14 Moderate major depressio n, single episode 29815765 Active 2023 Tito Hdz MD [address] [address], [place], [address], [facility] 4 15:49:23 Problem Notes None recorded. Procedures Surgical History Date Name Laterality Status Provider Name and Address Organization Details Recorded Time 01/07/20 24 repair of umbilical hernia completed Tito Hdz MD [address] [address], [place], [address], [facility] 01/16/2024 21:31:35 06/04/20 23 repair of tendo achilles completed Chana Krishnan [facility] 07/09/2023 14:14:47 02/08/20 22 tooth extraction [facility] Anali molina [facility] 09/[facility]2023 13:19:42 11/23/19 20 vasectomy completed Tito Hdz MD [address] [address], [place], [address], [facility] 11/26/2019 12:39:28 06/04/20 18 Cerumen Removal completed Tito Hdz MD [address], [address], [facility] 06/04/2018 10:24:16 05/11/20 18 Oral surgery procedure completed Dionne Stewart MA [facility] 06/04/2018 09:40:01 11/27/18 71 Circumcision completed Pebbles Barros MA [facility] 06/04/2021 08:46:28 Oral surgery procedure completed Chana Raúl Krishnan MA [facility] 06/13/2022 15:40:35 Imaging Results None recorded. Procedure Notes None recorded. Medical Equipment None Reported. Allergies Allergen ID Allergen Name Allergen Category Reaction Reaction Severity Criticality Documentation Date Start Date Code Code System Note Provider Name and Address Organization Details Recorded Time 66718 sertralin e medicatio n abdominal pain diarrhea Not available Not available Not available 04/15/[address] [facility] 4 11:23:14 Medications Name Sig Start [...] Updated DateTime 4 185.42 cm 28.8 kg/m2 12087.1 4 g 81 /min 97 % 97 % 97.9 [degF] 115 mm[Hg] 69 mm[Hg] Anali Omaira-M attos, [place] [facility] 4 11:21:18 Social History Question Answer Notes LastModified by Organizat ion Details LastModified Time Tobacco Smoking Status Never Smoker Not Available [employer] 04/11/2020 03:36:41 Do You Have An Advance Directive? Yes HCP- -Sharona Information not available 07/09/2023 What Is Your Level Of Alcohol Consumption? Occasional [id number] Information not available 04/11/2020 Is Blood Transfusion Acceptable In An Emergency? Yes [id number] Information not available 04/11/2020 What Is Your Level Of Caffeine Consumption? None Decaf Information not available 07/09/2023 How Much Tobacco Do You Chew? None [id number] Information not available 04/11/2020 Are You Currently Employed? Yes [facility] [employer] [facility] Information not available 06/13/2022 What Type Of Diet Are You Following? VEGETARIAN [id number] Information not available 04/11/2020 Which Illicit Or Recreational Drugs Have You Used? None [id number] Information not available 04/11/2020 Do You Or Have You Ever Used E-cigarettes Or Vape? 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 05/31/2024 [email or web address] Information not available 05/31/2024 How Many Children Do You Have? 3 [id number] Information not available 04/11/2020 Do You Use [...] Age Did You Start Smoking Tobacco? 1 [id number] Information not available 04/11/2020 Are You Passively Exposed To Smoke? No Information not available 12/27/2015 Do You Or Have You Ever Used Smokeless Tobacco? Never Used Smokeless Tobacco [id number] Information not available 04/11/2020 How Much Tobacco Do You Smoke? No [id number] Information not available 04/11/2020 Do You Use Any Illicit Or Recreational Drugs? No Information not available 07/09/2023 Do You Use Sunscreen Routinely? Yes [id number] Information not available 04/11/2020 How Many Years Have You Smoked Tobacco? 0 [id number] Information not available 04/11/2020 Do You Or Have You Ever Used Any Other Forms Of Tobacco Or Nicotine? No Information not available 07/09/2023 Sex: Unknown Functional Status Question Answer Note LastModified by Organizat ion Details LastModified Time Are you able to walk? YESWOREST Information not available 07/09/2023 Are you able to care for yourself? Yes [id number] Information not available 04/11/2020 What is your exercise level? Occasional 07/09/23 upper strength exercises due to foot surgery Information not available 07/09/2023 Mental Status None recorded. Family History Relationship Description Onset Age of this Age Resolved Age Notes LastModified by Organization Details LastModified Time Unspecified Relation Adopted Not available 2023 13:50:23 Unspecified Relation Alcohol [...] quadrivalent, preservative 03/03/20 20 completed MISSY Luz, [facility] 06/04/2021 08:46:48 COVID-19 vaccine, vector-nr, rS-Ad26, PF, 0.5 mL 08/16/19 completed [address] Barros MA [facility] 06/04/2021 08:46:48 COVID-19, mRNA, LNP-S, PF, 30 mcg/0.3 mL dose 04/01/20 21 completed MISSY Kincaid, [facility] 08/27/2022 15:29:55 Tdap 12/27/19 16 completed MISSY Bowling, [facility] 06/13/2022 15:28:54 COVID-19, mRNA, LNP-S, bivalent, PF, 50 mcg/0.5 mL or 25mcg/0.25 mL dose 05/26/20 completed Chana Krishnan MA null, [facility] 06/13/2022 15:28:54 Influenza, MDCK, quadrivalent, PF 05/26/20 completed Charles Loyd MA null, [facility] 07/13/2022 10:24:18 Influenza, split virus, quadrivalent, PF 04/01/20 21 completed Charles Loyd MA null, [facility] 08/27/2022 15:29:55 Tdap 10/15/19 24 completed Alberta Mena MA null, [facility] 10/20/2023 15:37:28 Influenza, split virus, quadrivalent, PF 05/30/20 17 cancelled patient objection Not Available [facility] 06/26/2019 02:22:13 Influenza, split virus, quadrivalent, PF 06/04/20 18 cancelled patient objection Not Available [facility] 06/26/2019 02:22:15 Influenza, split virus, trivalent, PF 04/15/20 24 completed Anali molina MA null, [facility] 04/15/2024 12:24:53 Past Encounters Encounter ID Performer Location Encounter Start Date Encounter Closed Date Diagnosis/Indication Diagnosis SNOMED-CT Code Diagnosis ICD10 Code [id number] Tito Hdz MD [facility] [address] [facility] [address] [place] [address] 04/09/2024 14:51:53 04/09/2024 16:30:31 Moderate major depression, single episode 99393332 F32.1 Panic disorder 909088640 F41.0 Generalize d anxiety disorder 34276395 F41.1 [id number] KIMBERLY TSE Main Office [address] [facility] [address] [facility] [place] [address] 04/15/2024 11:07:45 04/15/2024 11:43:12 Chest pain 49240601 R07.9 Needs infl uenza immunization 553671027 Z23 Moderate m ajor depression, single episode 57881335 F32.1 Health Concerns Section Related Observation LastModified by Organization Detai ls LastModified Time None Recorded Concern Status LastModified by Organization Details LastModified Time None Recorded Payers Encounter Date Sequence Insurance Name Policy Number Policy Ashley Covered Member ID Ashley Member ID Guarantor Name 04/15/2024 1 [employer]ian[employer] [id number] Charles Camacho [id number] Charles Camacho Notes Date Note Type Note Provider Name and Address Organization Details Recorded Time 04/15/2024 text/html Charles is a 53y r old M who presents for a hospital f/u. PMH of DVT- on eliquis. Follow Up Hospital: [facility] Medicaladmit date: 04/14/24Date of discharge: 04/14/24 Charles was evaluated at [facility] for chest pain. Symptoms of midsternal chest pain while walking, radiated up to neck and down to kidneys/low back. Was given aspirin by EMS- symptoms started to subside. EKG, chest x-ray, and lab work was unremarkable. No signs of ischemia, no leukocytosis/anemi a, or gross electrolyte abnormalities. KIMBERLY TSE [address] [facility] [facility] [address], [place], [address], [facility] 04/15/2024 11:42:37
--- OUTSIDE RECORDS SUMMARY | 2024-06-10 16:19 | XMS_ITS | Continuity of Care Document ---
Author Organization [facility], [facility] Address [address] [place] [address] Care Team Providers Care Pediatric Pathologist Name Role Phone TITO HDZ Primary Care Provider [phone] TAMI WORRELL Plasterer Spot [phone] KUSH DAHL Phys. Med[facility] Re[facility] JAYDA LOCK Urologist [facility] Orthopedic Surgeon CAT PINEDA Orthopedic Surgeon [facility] Generating Station Mechanic [facility] GASTR[facility] International Sourcing Manager [facility] VASCULAR Vascular Surgeon Assessment Encounter Date Assessment Date Assessment LastModified by Organization Details LastModified Time 05/07/2024 05/07/2024 This service was provided using telemedicine. Patient consented to video & audio visit Patient was located in the [facility]. Provider was located in the office. No other persons participated in the telemedicine visit except for the patient unless otherwise indicated here. {{}} Total time of visit was 16 minutes. [email or web address] Not available 05/09/2024 23:05:34 Plan of Treatment Reminders Order Date Submit Date Provider Last Modified By Organization Details Last Modified Time Details Appointments telehealt h20 2024 02:45P M Tito Hdz MD Not available Not available Not available Lab None recorded. Referral None recorded. Procedures None recorded. Surgeries None recorded. Imaging None recorded. Medication Orders escitalop becky 10 mg tablet 2023 024 [facility] #[id number], [address] [place], [place], [id number], 05/31/2024 13:25:44 Patient TargetsNo targets recorded. Patient Instructions Encounter Date Encounter Id Patient Instructions Last Modified By Organization Details Last Modified Time 05/07/2024 [id number] depression treatment: care instructions [email or web address] Not available 05/07/2024 15:36:35 Reason for Referral None Reported. Results Created Date Observation Date Name Description Value Unit Range Abnormal Flag Note LastModifiedBy Organization Detail LastModifiedTime 04/15/20 24 04/14/2024 US, chest No observ ation record ed. [email or web address] Not Available 05/07 15:31:13 Result Notes None recorded. Problems Name Problem SNOMED Code Status Onset Date Resolution Date Notes Provider Name and Address Organization Details Recorded Time Vertigo 632776417 Completed 08/14/2016 Denita morris [facility] 7 10:40:21 History of Lyme disease 138333026 Completed 07/13/2022 MISSY Kincaid, [facility] 3 09:15:53 Body mass index 25-29 - overweigh t 135248852 Completed 06/04/2018 Tito Hdz MD [address], [place], [address], [facility] 8 10:03:27 Thyroid nodule 164810458 Completed 01/17/2016 Tito Hdz MD [address], [place], [address], [facility] 6 06:06:56 Tinnitus 76607387 Completed 201508/14/2016 Denita morris [facility] 7 10:41:15 Acute sinusitis 72957142 Completed 201605/30/2017 Tito Hdz MD [address], [place], [address], [facility] 7 15:32:08 Chronic sinusitis 52814049 Completed 201606/04/2018 Tito Hdz MD [address] [facility] [place], [address], [facility] 8 10:03:41 Adult health examinati on Completed 201605/30/2017 Tito Hdz MD [address] [place] [address], [address], [facility] 7 16:01:53 Knee pain Completed 201805/31/2019 Tito Hdz MD [address] [address], [address], [facility] 9 10:01:15 Osteoarth ritis of right knee joint 311950074774 100 Active 2018 Tito Hdz MD [address] [address], [address], [facility] 9 07:02:46 Sprain of posterior cruciate ligament of knee 125683670 Completed 201806/01/2020 Tito Hdz MD [address] [place], [address], [facility] 0 10:22:03 Chondroma lacia of patella 04110580 Completed 201806/01/2020 Tito Hdz MD [address], [address], [facility] 0 10:22:34 Hearing loss 55925604 Active 2018 Tito Hdz MD [address], [address], [facility] 9 10:03:02 Bilateral tinnitus 302074965166 2 Active 2018 Tito Hdz MD [address], [address], [facility] 9 10:03:10 Obesity 286833822 Completed 201806/01/2020 Tito Hdz MD [address], [place], [address], [facility] 0 10:20:22 Family history of Cardiovas cular disease 040968698 Active 2019 Tito Hdz MD [address], [place], [address], [facility] 0 10:30:03 Adjustmen t disorder with depressed mood 62817241 Completed 201905/09/2024 Tito Hdz MD [address], [place], [address], [facility] 4 23:21:00 Achilles tendiniti s 12617915 Completed 202006/13/2022 Tito Hdz MD [address], [place], [address], [facility] 3 16:08:11 Calcaneal spur 51072083 Active 2020 Tito Hdz MD [address], [place], [address], [facility] 1 15:52:22 COVID-19 653057678 Completed 202106/13/2022 Tito Hdz MD [address], [place], [address], [facility] 3 16:00:26 Sensorine ural hearing loss 55022622 Active 2021 Tito Hdz MD [address], [place], [address], [facility] 2 19:37:34 Attention deficit hyperacti vity disorder, predomina ntly inattenti ve type 91871343 Active 2022 Tito Hdz MD [address], [place], [address], [facility] 3 13:36:04 Diaphragm atic eventrati on 73958059 Active 2022 Tito Hdz MD [address], [place], [address], [facility] 3 10:19:46 Left Achilles tendiniti s 008156015703 102 Active 2022 Tito Hdz MD [address] [address], [place], [address], [facility] 3 10:01:26 Impaired fasting glycemia 979048112 Active 2023 Tito Hdz MD [address] [address], [place], [address], [facility] 4 06:32:35 Acute deep venous thrombosi s of left lower extremity 003950254057 104 Active 2023 Tito Hdz MD [address] [address], [place], [address], [facility] 4 22:39:54 Umbilical hernia 373514113 Active 2023 Tito Hdz MD [address], [place], [address], [facility] 4 09:18:14 Moderate major depressio n, single episode 51478227 Active 2023 Tito Hdz MD [address], [place], [address], [facility] 4 15:49:23 Problem Notes None recorded. Procedures Surgical History Date Name Laterality Status Provider Name and Address Organization Details Recorded Time 01/07/20 24 repair of umbilical hernia completed Tito Hdz MD [address] [facility], [place], [address], [facility] 01/16/2024 21:31:35 06/04/20 23 repair of tendo achilles completed Chana Krishnan [facility] 07/09/2023 14:14:47 02/08/20 22 tooth extraction completed Anali molina [place] [facility] 09/09/2023 13:19:42 11/23/19 20 vasectomy completed Tito Hdz MD [address] [facility], [place], [address], [facility] 11/26/2019 12:39:28 06/04/20 18 Cerumen Removal completed Tito Hdz MD [address] [facility], [place], [address], [facility] 06/04/2018 10:24:16 05/11/20 18 Oral surgery procedure completed Dionne Stewart [place] [facility] 06/04/2018 09:40:01 11/27/18 71 Circumcision [address] Pebbles Barros [facility] 06/04/2021 08:46:28 Oral surgery procedure completed Chana Krishnan [facility] 06/13/2022 15:40:35 Imaging Results None recorded. Procedure Notes None recorded. Medical Equipment None Reported. Allergies Allergen ID Allergen Name Allergen Category Reaction Reaction Severity Criticality Documentation Date Start Date Code Code System Note Provider Name and Address Organization Details Recorded Time 59963 sertralin e medicatio n abdominal pain diarrhea Not available Not available Not available 04/15/2024 15059 [facility] 4 11:23:14 Medications Name Sig Start Date [...] completed Not Available Not Available Not Available Brianna C-NR 10 mg-100 mg/5 mL oral liquid [...] Not Available Not Available Not Available Vitals None Recorded Social History Question Answer Notes LastModified by Organizat ion Details LastModified Time Tobacco Smoking Status Never Smoker Not Available [employer] 04/11/2020 03:36:41 Do You Have An Advance Directive? Yes HCP- -Sharona [email or web address] Information not available 07/09/2023 What Is Your Level Of Alcohol Consumption? Occasional [id number] Information not available 04/11/2020 Is Blood Transfusion Acceptable In An Emergency? Yes [id number] Information not available 04/11/2020 What Is Your Level Of Caffeine Consumption? None Decaf Information not available 07/09/2023 How Much Tobacco Do You Chew? None [id number] Information not available 04/11/2020 Are You Currently Employed? Yes [employer] [facility] [employer] [facility] [email or web address] Information not available 06/13/2022 What Type Of Diet Are You Following? VEGETARIAN [id number] Information not available 04/11/2020 Which Illicit Or Recreational Drugs Have You Used? None [id number] Information not available 04/11/2020 Do You Or Have You Ever Used E-cigarettes Or Vape? 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 05/31/2024 [email or web address] Information not available 05/31/2024 How Many Children Do You Have? 3 [id number] Information not available 04/11/2020 Do You Use Protection During Sex? No Information not available 06/01/2020 Do You Use Your Seat Belt Or Car Seat Routinely? Yes Information not available 06/04/2021 Seat Belts Used Routinely Yes Information not available 07/09/2023 Are You Sexually Active? Yes Sharona barlow Information not available 09/09/2023 Smoke Alarm In Home Yes Information not available 07/09/2023 Do You Have Smoke And Carbon Monoxide Detectors In Your Home? Yes Information not available 06/04/2021 At What Age Did You Start Smoking Tobacco? 1 [id number] Information not available 04/11/2020 Are You Passively Exposed To Smoke? No Information not available 12/27/2015 Do You Or Have You Ever Used Smokeless Tobacco? Never Used Smokeless Tobacco [id number] Information not available 04/11/2020 How Much Tobacco Do You Smoke? No [id number] Information not available 04/11/2020 Do You Use Any Illicit Or Recreational Drugs? No Information not available 07/09/2023 Do You Use Sunscreen Routinely? Yes [id number] Information not available 04/11/2020 How Many Years Have You Smoked Tobacco? 0 [id number] Information not available 04/11/2020 Do You Or Have You Ever Used Any Other Forms Of Tobacco Or Nicotine? No Information not available 07/09/2023 Sex: Unknown Functional Status Question Answer Note LastModified by Organizat ion Details LastModified Time Are you able to walk? YESWOREST [email or web address] Information not available 07/09/2023 Are you able to care for yourself? Yes [id number] Information not available 04/11/2020 What is your exercise level? Occasional 07/09/23 upper strength exercises due to foot surgery Information not available 07/09/2023 Mental Status None recorded. Family History Relationship Description Onset Age of this Age Resolved Age Notes LastModified by Organization Details LastModified Time Unspecified Relation Adopted [email or web address] Not available 2023 13:50:23 Unspecified Relation Alcohol abuse abolcun Not available 2019 09:48:24 Unspecified Relation Substance abuse [email or web address] Not available 2020 08:43:15 Mother Heart disease [email or web address] Not available 06/13 16:09:10 Medical History Condition Response Obesity N ADHD Y Vision or Eye Problems Y Chicken Pox Y Ear or Hearing Problems Y Immunizations Vaccine Type Date Status Note Provider Name and Address Organization Details Recorded Time Influenza, MDCK, quadrivalent, preservative 03/03/20 20 completed MISSY Luz [place] - [facility] 06/04/2021 08:46:48 COVID-19 vaccine, vector-nr, rS-Ad26, PF, 0.5 mL 08/16/19 21 completed MISSY Luz, [facility] 06/04/2021 08:46:48 COVID-19, mRNA, LNP-S, PF, 30 mcg/0.3 mL dose 04/01/20 21 completed MISSY Kincaid, [facility] 08/27/2022 15:29:55 Tdap 12/27/19 16 completed MISSY Bowling, [facility] 06/13/2022 15:28:54 COVID-19, mRNA, LNP-S, bivalent, PF, 50 mcg/0.5 mL or 25mcg/0.25 mL dose 05/26/20 22 completed MISSY Bowling, [facility] 06/13/2022 15:28:54 Influenza, MDCK, quadrivalent, PF 05/26/20 22 [facility] 10:24:18 Influenza, split virus, quadrivalent, PF 04/01/20 21 completed MISSY Kincaid, [facility] 08/27/2022 15:29:55 Tdap 10/15/19 24 completed MISSY Mcdonald, [facility] 10/20/2023 15:37:28 Influenza, split virus, quadrivalent, PF 05/30/20 17 cancelled patient objection Not Available [facility] 06/26/2019 02:22:13 Influenza, split virus, quadrivalent, PF 06/04/20 18 cancelled patient objection Not Available [facility] 06/26/2019 02:22:15 Influenza, split virus, trivalent, PF 04/15/20 24 completed MISSY Bashir, [facility] 04/15/2024 12:24:53 Past Encounters Encounter ID Performer Location Encounter Start Date Encounter Closed Date Diagnosis/Indication Diagnosis SNOMED-CT Code Diagnosis ICD10 Code [id number] Tito Hdz MD [facility] [address] [facility] [place] [address] 04/09/2024 14:51:53 04/09/2024 16:30:31 Moderate major depression, single episode 84544033 F32.1 Panic disorder 464891706 F41.0 Generalize d anxiety disorder 94059225 F41.1 [id number] KIMBERLY TSE Main Office [address] [address] 04/15/2024 11:07:45 04/15/2024 11:43:12 Chest pain 67833015 R07.9 Needs infl uenza immunization 063799813 Z23 Moderate m ajor depression, single episode 62094216 F32.1 [id number] Tito Hdz MD [facility] [address] [address] 05/07/2024 14:29:22 05/10/2024 14:09:10 Moderate major depression, single episode 80742632 F32.1 Attention deficit hyperactivity disorder, predominantly inattentive type 58391668 F90.0 Health Concerns Section Related Observation LastModified by Organization Detai ls LastModified Time None Recorded Concern Status LastModified by Organization Details LastModified Time None Recorded Payers Encounter Date Sequence Insurance Name Policy Number Policy Ashley Covered Member ID Ashley Member ID Guarantor Name 05/07/2024 1 Max Rumpus [id number] Charles Camacho [id number] Charles Camacho Notes Date Note Type Note Provider Name and Address Organization Details Recorded Time 05/07/2024 text/html Anxiety/Depressi onR eported bypatient.Quality:s ymptoms improved Severity:denies suicidal ideations;unable to maintain relationships Duration:symptoms lasting over 2 weeks; stablizing Context:major life stressors;family problems;relationsh ip stress Associated Symptoms:denies homicidal ideations; mood goodNotes:Having [...] pain. No recurrence since. Tito Hdz MD [address] [address], [place], [address], [facility] 05/09/2024 23:22:00
--- OUTSIDE RECORDS SUMMARY | 2024-06-10 16:19 | XMS_ITS | Continuity of Care Document ---
Author Organization [facility] Address [address] [place] [address] Care Team Providers Care Fuel House Attendant Name Role Phone TITO HDZ Primary Care Provider TAMI WORRELL Sed Special Education Teacher KUSH DAHL Phys. Med. & Rehab [phone] JAYDA LOCK Urologist [facility] Orthopedic Surgeon CAT PINEDA Orthopedic Surgeon [phone] [facility] Shop Tailor [facility] GA[facility] Engine Specialist [facility] VASCULAR Vascular Surgeon Assessment Encounter Date Assessment Date Assessment LastModified by Organization Details LastModified Time 04/09/2024 04/09/2024 This service was provided using telemedicine. Patient consented to video & audio visit Patient was located in the [facility]. Provider was located in the office. No other persons participated in the telemedicine visit except for the patient unless otherwise indicated here. {{}} Total time of visit was 24 minutes. [email or web address] Not available 04/09/2024 15:52:59 Plan of Treatment Reminders Order Date Submit Date Provider Last Modified By Organization Details Last Modified Time Details Appointments telehealt h20 2024 02:45P M Tito Hdz MD Not available Not available Not available Lab None recorded. Referral None recorded. Procedures None recorded. Surgeries None recorded. Imaging None recorded. Medication Orders sertralin e 50 mg tablet 2023 024 [id number], [address] [place], [place], [id number], 04/15/2024 11:23:01 clonazepa m 0.5 mg tablet 2023 024 [id number], [address] [place], [place], [id number], 04/09/2024 15:51:54 Patient TargetsNo targets recorded. Patient InstructionsNo instructions recorded. Reason for Referral None Reported. Results Created Date Observation Date Name Description Value Unit Range Abnormal Flag Note LastModifiedBy Organization Detail LastModifiedTime 04/15/20 24 04/14/2024 US, chest No observ ation record ed. [email or web address] Not Available 05/07 15:31:13 Result Notes None recorded. Problems Name Problem SNOMED Code Status Onset Date Resolution Date Notes Provider Name and Address Organization Details Recorded Time Vertigo 260981410 Completed 08/14/2016 Denita morris, [facility] 7 10:40:21 History of Lyme disease 964796877 Completed 07/13/2022 MISSY Kincaid, [facility] 3 09:15:53 Body mass index 25-29 - overweigh t 783076293 Completed 06/04/2018 Tito Hdz MD [address], [place], [address], [facility] 8 10:03:27 Thyroid nodule 916015530 Completed 01/17/2016 Tito Hdz MD [address], [place], [address], [facility] 6 06:06:56 Tinnitus 84689677 Completed 201508/14/2016 Denita morris [facility] 7 10:41:15 Acute sinusitis 80235562 Completed 201605/30/2017 Tito Hdz MD [address], [place], [address], [facility] 7 15:32:08 Chronic sinusitis 25277348 Completed 201606/04/2018 Tito Hdz MD [address], [place], [address], [facility] 8 10:03:41 Adult health examinati on Completed 201605/30/2017 Tito Hdz MD [address], [place], [address], [facility] 7 16:01:53 Knee pain Completed 201805/31/2019 Tito Hdz MD [address], [place], [address], [facility] 9 10:01:15 Osteoarth ritis of right knee joint 336901191482 100 Active 2018 Tito Hdz MD [address], [place], [address], [facility] 9 07:02:46 Sprain of posterior cruciate ligament of knee 494477495 Completed 201806/01/2020 Tito Hdz MD [address], [place], [address], [facility] 0 10:22:03 Chondroma lacia of patella 21769133 Completed 201806/01/2020 Tito Hdz MD [address], [place], [address], [facility] 0 10:22:34 Hearing loss 44864673 Active 2018 Tito Hdz MD [address], [place], [address], [facility] 9 10:03:02 Bilateral tinnitus 960642797821 2 Active 2018 Tito Hdz MD [address] [facility] [address], [place], [address], [facility] 9 10:03:10 Obesity 233408769 Completed 201806/01/2020 Tito Hdz MD [address] [facility] [address], [place], [address], [facility] 0 10:20:22 Family history of Cardiovas cular disease 196108797 Active 2019 Tito Hdz MD [address] [facility] [address], [place], [address], [facility] 0 10:30:03 Adjustmen t disorder with depressed mood 44627190 Completed 201905/09/2024 Tito Hdz MD [address] [facility] [address], [place], [address], [facility] 4 23:21:00 Achilles tendiniti s 26390561 Completed 202006/13/2022 Tito Hdz MD [address] [facility] [address], [place], [address], [facility] 3 16:08:11 Calcaneal spur 54145025 Active 2020 Tito Hdz MD [address] [facility] [address], [place], [address], [facility] 1 15:52:22 COVID-19 793305025 Completed 202106/13/2022 Tito Hdz MD [address], [place], [address], [facility] 3 16:00:26 Sensorine ural hearing loss 08847541 Active 2021 Tito Hdz MD [address], [place], [address], [facility] 2 19:37:34 Attention deficit hyperacti vity disorder, predomina ntly inattenti ve type 18593481 Active 2022 Tito Hdz MD [address], [place], [address], [facility] 3 13:36:04 Diaphragm atic eventrati on 57587990 Active 2022 Tito Hdz MD [address], [place], [address], [facility] 3 10:19:46 Left Achilles tendiniti s 131060288430 102 Active 2022 Tito Hdz MD [address], [place], [address], [facility] 3 10:01:26 Impaired fasting glycemia 750596144 Active 2023 Tito Hdz MD [address], [place], [address], [facility] 4 06:32:35 Acute deep venous thrombosi s of left lower extremity 206044605940 104 Active 2023 Tito Hdz MD [address], [place], [address], [facility] 4 22:39:54 Umbilical hernia 406516761 Active 2023 Tito Hdz MD [address], [place], [address], [facility] 4 09:18:14 Moderate major depressio n, single episode 85684238 Active 2023 Tito Hdz MD [address], [place], [address], [facility] 4 15:49:23 Problem Notes None recorded. Procedures Surgical History Date Name Laterality Status Provider Name and Address Organization Details Recorded Time 01/07/20 24 repair of umbilical hernia completed Tito Hdz MD [address] [address], [place], [address], [facility] 01/16/2024 21:31:35 06/04/20 23 repair of tendo achilles completed Chana Krishnan [facility] 07/09/2023 14:14:47 02/08/20 22 tooth extraction completed Anali molina [facility] 09/09/2023 13:19:42 11/23/19 20 vasectomy completed Tito Hdz MD [address] [address], [place], [address], [facility] 11/26/2019 12:39:28 06/04/20 18 Cerumen Removal completed Tito Hdz MD [address] [address], [place], [address], [facility] 06/04/2018 10:24:16 05/11/20 18 Oral surgery procedure completed Dionne Stewart [facility] 06/04/2018 09:40:01 11/27/18 71 Circumcision completed Pebbles Barros [facility] 06/04/2021 08:46:28 [facility]2022 15:40:35 Imaging Results None recorded. Procedure Notes None recorded. Medical Equipment None Reported. Allergies Allergen ID Allergen Name Allergen Category Reaction Reaction Severity Criticality Documentation Date Start Date Code Code System Note Provider Name and Address Organization Details Recorded Time 03925 sertralin e medicatio n abdominal pain diarrhea Not available Not available Not available 04/15/2024 94541 [facility] 4 11:23:14 Medications Name Sig Start Date [...] Not Available Vitals Date Recorded Body height Provider Name an d Address Organization Details Last Updated DateTime 04/09/2024 185.42 cm Shantel Doty MA [facility] 04/09/2024 14:55:55 Date Recorded Body height Body mass index (BMI) Body weight Heart rate Oxygen saturation Oxygen saturation in Arterial blood by Pulse oximetry Body temperature Systolic blood pressure Diastolic blood pressure Provider Name and Address Organization Details Last Updated DateTime 4 185.42 cm 28.8 kg/m2 56110.1 4 g 81 /min 97 % 97 % 97.9 [degF] 115 mm[Hg] 69 mm[Hg] Anali garcia MA [facility] 4 11:21:18 Social History Question Answer Notes LastModified by Organizat ion Details LastModified Time Tobacco Smoking Status Never Smoker Not Available [employer] 04/11/2020 03:36:41 Do You Have An Advance Directive? Yes HCP- -Sharona annamarie Information not available 07/09/2023 What Is Your Level Of Alcohol Consumption? Occasional [id number] Information not available 04/11/2020 Is Blood Transfusion Acceptable In An Emergency? Yes [id number] Information not available 04/11/2020 What Is Your Level Of Caffeine Consumption? None Decaf Information not available 07/09/2023 How Much Tobacco Do You Chew? None [id number] Information not available 04/11/2020 Are You Currently Employed? Yes [employer] [place] Information not available 06/13/2022 What Type Of Diet Are You Following? VEGETARIAN [id number] Information not available 04/11/2020 Which Illicit Or Recreational Drugs Have You Used? None [id number] Information not available 04/11/2020 Do You Or Have You Ever Used E-cigarettes Or Vape? 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 05/31/2024 [email or web address] Information not available 05/31/2024 How Many Children Do You Have? 3 [id number] Information not available 04/11/2020 Do You Use [...] Age Did You Start Smoking Tobacco? 1 [id number] Information not available 04/11/2020 Are You Passively Exposed To Smoke? No Information not available 12/27/2015 Do You Or Have You Ever Used Smokeless Tobacco? Never Used Smokeless Tobacco [id number] Information not available 04/11/2020 How Much Tobacco Do You Smoke? No [id number] Information not available 04/11/2020 Do You Use Any Illicit Or Recreational Drugs? No Information not available 07/09/2023 Do You Use Sunscreen Routinely? Yes [id number] Information not available 04/11/2020 How Many Years Have You Smoked Tobacco? 0 [id number] Information not available 04/11/2020 Do You Or Have You Ever Used Any Other Forms Of Tobacco Or Nicotine? No Information not available 07/09/2023 Sex: Unknown Functional Status Question Answer Note LastModified by Organizat ion Details LastModified Time Are you able to walk? YESWOREST Information not available 07/09/2023 Are you able to care for yourself? Yes [id number] Information not available 04/11/2020 What is your exercise level? Occasional 07/09/23 upper strength exercises due to foot surgery Information not available 07/09/2023 Mental Status None recorded. Family History Relationship Description Onset Age of this Age Resolved Age Notes LastModified by Organization Details LastModified Time Unspecified Relation Adopted [email or web address] Not available 2023 13:50:23 Unspecified Relation Alcohol [...] quadrivalent, preservative 03/03/20 20 completed MISSY Luz, [facility] 06/04/2021 08:46:48 COVID-19 vaccine, vector-nr, rS-Ad26, PF, 0.5 mL 08/16/19 21 [facility] 08:46:48 COVID-19, mRNA, LNP-S, PF, 30 mcg/0.3 mL dose 04/01/20 21 completed MISSY Kincaid, [facility] 08/27/2022 15:29:55 Tdap 12/27/19 16 completed MISSY Bowling, [facility] 06/13/2022 15:28:54 COVID-19, mRNA, LNP-S, bivalent, PF, 50 mcg/0.5 mL or 25mcg/0.25 mL dose 05/26/20 22 completed MISSY Bowling, [facility] 06/13/2022 15:28:54 Influenza, MDCK, quadrivalent, PF 05/26/20 22 completed MISSY Kincaid, [facility] 07/13/2022 10:24:18 Influenza, split virus, quadrivalent, PF 04/01/20 21 completed MISSY Kincaid, [facility] 08/27/2022 15:29:55 Tdap 10/15/19 24 completed MISSY Mcdonald, [facility] 10/20/2023 15:37:28 Influenza, split virus, quadrivalent, PF 05/30/20 17 cancelled patient objection Not Available [facility] 06/26/2019 02:22:13 Influenza, split virus, quadrivalent, PF 06/04/20 18 cancelled patient objection Not Available [facility] 06/26/2019 02:22:15 Influenza, split virus, trivalent, PF 04/15/20 24 completed MISSY Bashir [facility] 04/15/2024 12:24:53 Past Encounters Encounter ID Performer Location Encounter Start Date Encounter Closed Date Diagnosis/Indication Diagnosis SNOMED-CT Code Diagnosis ICD10 Code [id number] Tito Hdz MD Main Office [address] [place] [address] 03/09/2024 14:42:04 03/09/2024 15:31:46 Acute deep venous thrombosis of left lower extremity 0605753515 24982 I82.402 Attention deficit hyperactivity disorder, predominantly inattentive type 28341020 F90.0 Needs infl uenza immunization 220617916 Z23 [id number] Tito Hdz MD Telehealt h [address] [facility] [address] [place] [address] 04/09/2024 14:51:53 04/09/2024 16:30:31 Moderate major depression, single episode 78944556 F32.1 Panic disorder 921135405 F41.0 Generalize d anxiety disorder 44529491 F41.1 Health Concerns Section Related Observation LastModified by Organization Detai ls LastModified Time None Recorded Concern Status LastModified by Organization Details LastModified Time None Recorded Payers Encounter Date Sequence Insurance Name Policy Number Policy Ashley Covered Member ID Ashley Member ID Guarantor Name 04/09/2024 1 [place] [id number] Charles Camacho [id number] Charles Camacho Notes Date Note Type Note Provider Name and Address Organization Details Recorded Time 04/09/2024 text/html Anxiety/Depressi on Reported bypatient.Quality: mood worse;increased anxiety;panic symptoms Severity:unable to maintain relationships;inte rference with sleep;interference with work Context:[facility] ip stressNotes:Having a significant amount of increased stress [...] and tolerate it well. Tito Hdz MD [address], [place], [address], [facility] 04/15/2024 12:33:37 04/15/2024 text/html Charles is a 53y r old M who presents for a hospital f/u. PMH of DVT- on eliquis. Follow Up Hospital: [facility] Medicaladmit date: 04/14/24Date of discharge: 04/14/24 Charles was evaluated at [facility] for chest pain. Symptoms of midsternal chest pain while walking, radiated up to neck and down to kidneys/low back. Was given aspirin by EMS- symptoms started to subside. EKG, chest x-ray, and lab work was unremarkable. No signs of ischemia, no leukocytosis/anemi a, or gross electrolyte abnormalities. KIMBERLY TSE [address], [place], [address], [facility] 04/15/2024 11:42:37
== END 2024-06-10 14:45 | disposition home or self-care (01) ==
LOC: HO.HAP 14:44
PROVIDERS: Visit Provider Physician Assistant Medical
DX: Z46.1 Encounter for fitting and adjustment of hearing aid (principal); H93.13 Tinnitus, bilateral; H90.3 Sensorineural hearing loss, bilateral
CPT/HCPCS: 92593

== ENCOUNTER 2024-06-29 16:00 | Outpatient (REF) | payer OTHER, SELFPAY ==
--- OUTSIDE RECORDS SUMMARY | 2024-06-29 17:42 | XMS_ITS | Data Portability ---
Author Organization [facility], Main Office Address [address] [place] [address] Care Team Providers Care Staffing Rn Name Role Phone TITO HDZ Primary Care Provider TAMI WORRELL Paradi Operator KUSH DAHL Phys. Med. [facility] Rehab JAYDA LOCK Urologist [facility] (AARON BASUR[facility]) Orthopedic Surgeon CAT PINEDA Orthopedic Surgeon [phone] [facility] Portal Administrator [facility] GASTROENTEROLOGY Management Lecturer [facility] VASCULAR Vascular Surgeon [phone] Assessment Encounter Date Assessment Date Assessment LastModified by Organization Details LastModified Time 04/09/2024 04/09/2024 This service was provided using telemedicine. Patient consented to video & audio visit Patient was located in the [facility]. Provider was located in the office. [...] audio visit Patient was located in the [facility]. Provider was located in the office. No other persons participated in the telemedicine visit except for the patient unless otherwise indicated here. {{}} Total time of visit was 16 minutes. [email or web address] Not available 05/09/2024 23:05:34 Plan of Treatment Reminders Order Date Submit Date Provider Last Modified By Organization Details Last Modified Time Details Appointments telehe alth20 2024 02:45P M Tito Hdz MD Not available Not available Not available Lab lipid panel, serum [facility]23 [facility] [address] [place] [address], , [address], 06/02/2024 06:07:08 vitami n D, 25-hyd frank, total, serum 2023 [facility], [address], [place], [address], 06/02/2024 06:07:09 PSA, total, serum or plasma 2023 [facility], [address] [place] [address], , [address], 06/02/2024 06:07:08 CMP, serum or plasma 2023 024 [facility], [address] , [facility], , [address], 06/02/2024 06:07:07 CBC w/ auto diff 2023 024 [facility], [address] [place] [address], , [address], 06/02/2024 06:07:06 Referral behavi oral health referr al - for depres abdirahman and anxiet y 2023 024 [facility], [address] , [place] [address], , [address], 04/15/2024 11:43:13 audiol ogist referr al 2023 024 [facility], [address] [place] [address] [place], [address], 05/31/2024 13:49:31 nutrit ionist /grace wylie referr al 2023 024 [email or web address] Not available 05/31/2024 13:49:31 Procedures None record ed. Surgeries None record ed. Imaging exerci se stress test - chest pain while walkin g 2023 024 carlos manuel [facility], [address] [place] [address] Drive, [address], , [address], 05/31/2024 09:24:18 Medication Orders Eliqui s 5 mg tablet 2023 024 [facility]02583, [address], [place], [id number], 03/09/2024 15:38:06 sertra line 50 mg tablet 2023 024 [facility] #97898, [address], [id number], 04/15/2024 11:23:01 clonaz epam 0.5 mg tablet 2023 024 [facility] #97844, [address], [place], [id number], 04/09/2024 15:51:54 escita lopram 10 mg tablet 2023 [facility]24 [facility], [address], [place], [id number], 05/31/2024 13:25:32 escita lopram 10 mg tablet 2023 024 [facility] #93469, [address], [id number], 05/31/2024 13:25:44 dextro amphet amine- amphet amine ER 20 mg 24hr capsul e,exte nd releas e 2023 024 [facility], [address], [place], [id number], 05/31/2024 13:47:51 Patient Targets Encounter Date Encounter Id Patient Goals Patient Target Last Modified By Organization Details Last Modified Time 05/31/2024 [id number] long term care administrator goal of Excess Body Weight Loss % [...] By Organization Details Last Modified Time 04/15/2024 [id number] chest pain: care instructions Not available 04/15/2024 11:33:05 At [facility] follow up visit, all current and discharge medications (OTC, herbal therapies, supplements) reviewed and reconciled with patient and or caregiver, including potential side effects, drug interactions, instructions, and the consequences of not taking medication. Reviewed potential barriers to medication adherence, such as side effects from medication or cost of medication. [email or web address] Not available 04/15/2024 11:12:14 05/07/2024 [id number] depression treatment: care instructions [email or web address] Not available 05/07/2024 15:36:35 05/31/2024 [id number] Prostate Cancer Screening [email or web address] Not available 05/31/2024 [...] Aidee Farris, Family Medicine, Encounter Date: 04/15/2024 Registered Nurse Practitioner/dietitian Refer ral for Body mass index 25-29 - overweight Referring Physician: Jason Lux, Internal Medicine, Encounter Date: 05/31/2024 Portal Administrator Referral for Hea ring loss Referring Physician: Jason Lux, Internal Medicine, Encounter Date: 05/31/2024 Results Created Date Observation Date Name Description Value Unit Range Abnormal Flag Note LastModifiedBy Organization Detail LastModifiedTime 06/01/20 24 06/01/2024 CBC WITH DIFFE RENTI AL/PL ATELE T WBC 5.8 x10e3 /uL 3.4-10 .8 normal Not Available [facility] ([facility]) [address] [place], [address], 06/02/2024 06:07:06 06/01/20 24 06/01/2024 CBC WITH DIFFE RENTI AL/PL ATELE T RBC 5.35 x10e6 /uL 4.14-5 .80 normal Not Available [facility] ([facility]) [address] [place], [address], 06/02/2024 06:07:06 06/01/20 24 06/01/2024 CBC WITH DIFFE RENTI AL/PL ATELE T hemoglobin 16.0 g/dL 13.0-1 7.7 normal Not Available [facility] ([facility]) [address] [place], [address], 06/02/2024 06:07:06 06/01/20 24 06/01/2024 CBC WITH DIFFE RENTI AL/PL ATELE T hematocrit 49.7 % 37.5-5 1.0 normal Not Available [facility] ([facility]) [address] [place], [address], 06/02/2024 06:07:06 06/01/20 24 06/01/2024 CBC WITH DIFFE RENTI AL/PL ATELE T MCV 93 fL 79-97 normal Not Available [facility] ([facility]) [address] [place], [address], 06/02/2024 06:07:06 06/01/20 24 06/01/2024 CBC WITH DIFFE RENTI AL/PL ATELE T MCH 29.9 pg 26.6-3 3.0 normal Not Available [facility] ([facility]) [address] [place], [address], 06/02/2024 06:07:06 06/01/20 24 06/01/2024 CBC WITH DIFFE RENTI AL/PL ATELE T MCHC 32.2 g/dL 31.5-3 5.7 normal Not Available [facility] ([facility]) [address] [place], [address], 06/02/2024 06:07:06 06/01/20 24 06/01/2024 CBC WITH DIFFE RENTI AL/PL ATELE T RDW 12.2 % 11.6-1 5.4 Not Available [facility] ([facility]) [address] [place], [address], 06/02/2024 06:07:06 06/01/20 24 06/01/2024 CBC WITH DIFFE RENTI AL/PL ATELE T platelets 231 x10e3 /uL 150-45 0 normal Not Available [facility] ([facility]) [address] [facility], [place], [address], 06/02/2024 06:07:06 06/01/20 24 06/01/2024 CBC WITH DIFFE RENTI AL/PL ATELE T neutrophils 53 % not estab. normal Not Available [facility] ([facility]) [address] [facility], [place], [address], 06/02/2024 06:07:06 06/01/20 24 06/01/2024 CBC WITH DIFFE RENTI AL/PL ATELE T lymphs 36 % not estab. normal Not Available [facility] ([facility]) [address] [facility], [place], [address], 06/02/2024 06:07:06 06/01/20 24 06/01/2024 CBC WITH DIFFE RENTI AL/PL ATELE T monocytes 8 % not estab. normal Not Available [facility] ([facility]) [address] [facility], [place], [address], 06/02/2024 06:07:06 06/01/20 24 06/01/2024 CBC WITH DIFFE RENTI AL/PL ATELE T eos 2 % not estab. normal Not Available [facility] ([facility]) [address] [facility], [place], [address], 06/02/2024 06:07:06 06/01/20 24 06/01/2024 CBC WITH DIFFE RENTI AL/PL ATELE T basos 1 % not estab. normal Not Available [facility] ([facility]) [address] [facility], [place], [address], 06/02/2024 06:07:06 06/01/20 24 06/01/2024 CBC WITH DIFFE RENTI AL/PL ATELE T immature cells EMPLOYEE COMMUNICATIONS MANAGER Not Available [facility] ([facility]) [address] [place], [address], 06/02/2024 06:07:06 06/01/20 24 06/01/2024 CBC WITH DIFFE RENTI AL/PL ATELE T neutrophils (absolute) 3.0 x10e3 /uL 1.4-7. 0 normal Not Available [facility] ([facility]) [address] [place], [address], 06/02/2024 06:07:06 06/01/20 24 06/01/2024 CBC WITH DIFFE RENTI AL/PL ATELE T lymphs (absolute) 2.1 x10e3 /uL 0.7-3. 1 normal Not Available [facility] ([facility]) [address] [place], [address], 06/02/2024 06:07:06 06/01/20 24 06/01/2024 CBC WITH DIFFE RENTI AL/PL ATELE T monocytes(ab solute) 0.5 x10e3 /uL 0.1-0. 9 normal Not Available [facility] ([facility]) [address] [place], [address], 06/02/2024 06:07:06 06/01/20 24 06/01/2024 CBC WITH DIFFE RENTI AL/PL ATELE T eos (absolute) 0.1 x10e3 /uL 0.0-0. 4 normal Not Available [facility] ([facility]) [address] [place], [address], 06/02/2024 06:07:06 06/01/20 24 06/01/2024 CBC WITH DIFFE RENTI AL/PL ATELE T baso (absolute) 0.1 x10e3 /uL 0.0-0. 2 normal Not Available [facility] ([facility]) [address] [place], [address], 06/02/2024 06:07:06 06/01/20 24 06/01/2024 CBC WITH DIFFE RENTI AL/PL ATELE T immature granulocytes 0 % not estab. Not Available [facility] ([facility]) [address] [facility], [place], [address], 06/02/2024 06:07:06 06/01/20 24 06/01/2024 CBC WITH DIFFE RENTI AL/PL ATELE T immature grans (abs) 0.0 x10e3 /uL 0.0-0. 1 Not Available [facility] ([facility]) [address] [facility], [place], [address], 06/02/2024 06:07:06 06/01/20 24 06/01/2024 CBC WITH DIFFE RENTI AL/PL ATELE T NRBC EMPLOYEE COMMUNICATIONS MANAGER Not Available [facility] ([facility]) [address] [facility], [place], [address], 06/02/2024 06:07:06 06/01/20 24 06/01/2024 CBC WITH DIFFE RENTI AL/PL ATELE T hematology comments: EMPLOYEE COMMUNICATIONS MANAGER Not Available [facility] ([facility]) [address] [facility], [place], [address], 06/02/2024 06:07:06 06/01/20 24 06/01/2024 COMP. METAB OLIC PANEL (14) glucose 101 mg/dL 70-99 above high normal Not Available [facility] ([facility]) [address] [facility], [place], [address], 06/02/2024 06:07:07 06/01/20 24 06/01/2024 COMP. METAB OLIC PANEL (14) BUN 13 mg/dL 6-24 normal Not Available [facility] ([facility]) [address] [facility], [place], [address], 06/02/2024 06:07:07 06/01/20 24 06/01/2024 COMP. METAB OLIC PANEL (14) creatinine 1.16 mg/dL 0.76-1 .27 normal Not Available [facility] ([facility]) [address] [facility], [place], [address], 06/02/2024 06:07:07 06/01/20 24 06/01/2024 COMP. METAB OLIC PANEL (14) eGFR 75 mL/mi n/1.7 3 >59 normal Not Available [facility] ([facility]) [address] [facility], [place], [address], 06/02/2024 06:07:07 06/01/20 24 06/01/2024 COMP. METAB OLIC PANEL (14) BUN/creatini ne ratio 11 9-20 normal Not Available [facility] ([facility]) [address] [facility], [place], [address], 06/02/2024 06:07:07 06/01/20 24 06/01/2024 COMP. METAB OLIC PANEL (14) sodium 142 mmol/ L 134-14 4 normal Not Available [facility] ([facility]) [address] [place], [address], 06/02/2024 06:07:07 06/01/20 24 06/01/2024 COMP. METAB OLIC PANEL (14) potassium 4.2 mmol/ L 3.5-5. 2 normal Not Available [facility] ([facility]) [address] [facility], [place], [address], 06/02/2024 06:07:07 06/01/20 24 06/01/2024 COMP. METAB OLIC PANEL (14) chloride 104 mmol/ L 96-106 normal Not Available [facility] ([facility]) [address] [facility], [place], [address], 06/02/2024 06:07:07 06/01/20 24 06/01/2024 COMP. METAB OLIC PANEL (14) carbon dioxide, total 24 mmol/ L 20-29 normal Not Available [facility] ([facility]) [address] [facility], [place], [address], 06/02/2024 06:07:07 06/01/20 24 06/01/2024 COMP. METAB OLIC PANEL (14) calcium 8.8 mg/dL 8.7-10 .2 normal Not Available [facility] ([facility]) [address] [facility] [place], [address], 06/02/2024 06:07:07 06/01/20 24 06/01/2024 COMP. METAB OLIC PANEL (14) protein, total 6.3 g/dL 6.0-8. 5 normal Not Available [facility] ([facility]) [address] [facility], [place], [address], 06/02/2024 06:07:07 06/01/20 24 06/01/2024 COMP. METAB OLIC PANEL (14) albumin 4.2 g/dL 3.8-4. 9 normal Not Available [facility] ([facility]) [address] [facility] [place], [address], 06/02/2024 06:07:07 06/01/20 24 06/01/2024 COMP. METAB OLIC PANEL (14) globulin, total 2.1 g/dL 1.5-4. 5 Not Available [facility] ([facility]) [address] [facility] [place], [address], 06/02/2024 06:07:07 06/01/20 24 06/01/2024 COMP. METAB OLIC PANEL (14) bilirubin, total 1.0 mg/dL 0.0-1. 2 normal Not Available [facility] ([facility]) [address] [facility] [place], [address], 06/02/2024 06:07:07 06/01/20 24 06/01/2024 COMP. METAB OLIC PANEL (14) alkaline phosphatase 74 IU/L 44-121 normal Not Available [facility] ([facility]) [address] [facility] [place], [address], 06/02/2024 06:07:07 06/01/20 24 06/01/2024 COMP. METAB OLIC PANEL (14) AST (SGOT) 22 IU/L 0-40 normal Not Available [facility] ([facility]) [address] [facility] [place], [address], 06/02/2024 06:07:07 06/01/20 24 06/01/2024 COMP. METAB OLIC PANEL (14) ALT (SGPT) 20 IU/L 0-44 normal Not Available [facility] ([facility]) [address] [place], [address], 06/02/2024 06:07:07 06/01/20 24 06/01/2024 LIPID PANEL cholesterol, total 178 mg/dL 100-19 9 normal Not Available [facility] ([facility]) [address] [place], [address], 06/02/2024 06:07:08 06/01/20 24 06/01/2024 LIPID PANEL triglyceride s 97 mg/dL 0-149 normal Not Available [facility] ([facility]) [address] [place], [address], 06/02/2024 06:07:08 06/01/20 24 06/01/2024 LIPID PANEL HDL cholesterol 36 mg/dL >39 below low normal Not Available [facility] ([facility]) [address] [place], [address], 06/02/2024 06:07:08 06/01/20 24 06/01/2024 LIPID PANEL VLDL cholesterol joss 18 mg/dL 5-40 Not Available [facility] ([facility]) [address] [place], [address], 06/02/2024 06:07:08 06/01/20 24 06/01/2024 LIPID PANEL LDL chol calc ([facility]) 124 mg/dL 0-99 above high normal Not Available [facility] ([facility]) [address], [place], [address], 06/02/2024 06:07:08 06/01/20 24 06/01/2024 LIPID PANEL LDL calc comment: EMPLOYEE COMMUNICATIONS MANAGER Not Available [facility] ([facility]) [address] [facility], [place], [address], 06/02/2024 06:07:08 06/01/20 24 06/01/2024 PROST ATE-S [...] kits canno t be used inter marie eably . Resul ts canno t be inter prete d as absol [place] evide nce of the prese nce or absen ce of [facility] [place] se. Not Available [facility] ([facility]) [address] [facility], [place], [address], 06/02/2024 06:07:08 06/01/20 24 06/02/2024 VITAM IN [...] 1. IOM (Inst itute of Medic ine). 2009. Geeta ry refer ence elias es for calci um and D. Marline curiel [place]: The [facility] Press . 2. Zbigniew k MF, Binkl ey [place], Bisch off-F errar i MACKENZIE, et al. Evalu ation , treat ment, and preve ntion of vitam in D defic iency : an Endoc rine Socie ty clini joss pract ice guide line. JCEM. 2010; 96(7) :1911 -30. Not Available [facility] ([facility]) [address] [facility], [place], [address], 06/02/2024 06:07:09 04/15/20 24 04/14/2024 US, chest No observ ation record ed. [email or web address] Not Available 05/07 15:31:13 Result Notes None recorded. Problems Name Problem SNOMED Code Status Onset Date Resolution Date Notes Provider Name and Address Organization Details Recorded Time Vertigo 345704936 Completed 08/14/2016 Denita morris, [facility] 7 10:40:21 History of Lyme disease 235129361 Completed 07/13/2022 MISSY Kincaid, [facility] 3 09:15:53 Body mass index 25-29 - overweigh t 120690140 Completed 06/04/2018 Tito Hdz MD [address] [facility] [address], [place], [address], [facility] 8 10:03:27 Thyroid nodule 743894391 Completed 01/17/2016 Tito Hdz MD [address] [facility] [address], [place], [address], [facility] 6 06:06:56 Tinnitus 33179699 Completed 201508/14/2016 [facility] 7 10:41:15 Acute sinusitis 43118793 Completed 201605/30/2017 Tito Hdz MD [address], [place], [address], [facility] 7 15:32:08 Chronic sinusitis 31452475 Completed 201606/04/2018 Tito Hdz MD [address], [place], [address], [facility] 8 10:03:41 Adult health examinati on Completed 201605/30/2017 Tito Hdz MD [address], [place], [address], [facility] 7 16:01:53 Knee pain Completed 201805/31/2019 Tito Hdz MD [address], [place], [address], [facility] 9 10:01:15 Osteoarth ritis of right knee joint 058830175001 100 Active 2018 Tito Hdz MD [address], [place], [address], [facility] 9 07:02:46 Sprain of posterior cruciate ligament of knee 321151406 Completed 201806/01/2020 Tito Hdz MD [address], [place], [address], [facility] 0 10:22:03 Chondroma lacia of patella 04861530 Completed 201806/01/2020 Tito Hdz MD [address], [place], [address], [facility] 0 10:22:34 Hearing loss 07191933 Active 2018 Tito Hdz MD [address], [place], [address], [facility] 9 10:03:02 Bilateral tinnitus 646668294965 2 Active 2018 Tito Hdz MD [address], [place], [address], [facility] 9 10:03:10 Obesity 908327395 Completed 201806/01/2020 Tito Hdz MD [address], [place], [address], [facility] 0 10:20:22 Family history of Cardiovas cular disease 891802204 Active 2019 Tito Hdz MD [address], [place], [address], [facility] 0 10:30:03 Adjustmen t disorder with depressed mood 97999108 Completed 201905/09/2024 Tito Hdz MD [address], [place], [address], [facility] 4 23:21:00 Achilles tendiniti s 23100143 Completed 202006/13/2022 Tito Hdz MD [address], [place], [address], [facility] 3 16:08:11 Calcaneal spur 04347335 Active 2020 Tito Hdz MD [address], [place], [address], [facility] 1 15:52:22 COVID-19 293504151 Completed 202106/13/2022 Tito Hdz MD [address], [place], [address], [facility] 3 16:00:26 Sensorine ural hearing loss 95260586 Active 2021 Tito Hdz MD [address], [place], [address], [facility] 2 19:37:34 Attention deficit hyperacti vity disorder, predomina ntly inattenti ve type 01195539 Active 2022 Tito Hdz MD [address], [place], [address], [facility] 3 13:36:04 Diaphragm atic eventrati on 13984255 Active 2022 Tito Hdz MD [address], [place], [address], [facility] 3 10:19:46 Left Achilles tendiniti s 936841014814 102 Active 2022 Tito Hdz MD [address], [place], [address], [facility] 3 10:01:26 Impaired fasting glycemia 793318053 Active 2023 Tito Hdz MD [address], [place], [address], [facility] 4 06:32:35 Acute deep venous thrombosi s of left lower extremity 074277285293 104 Active 2023 Tito Hdz MD [address], [place], [address], [facility] 4 22:39:54 Umbilical hernia 158135586 Active 2023 Tito Hdz MD [address], [place], [address], [facility] 4 09:18:14 Moderate major depressio n, single episode 94708887 Active 2023 Tito Hdz MD [address] [facility], [place], [address], [facility] 15:49:23 Problem Notes None recorded. Procedures Surgical History Date Name Laterality Status Provider Name and Address Organization Details Recorded Time 01/07/20 24 repair of umbilical hernia completed Tito Hdz MD [address], [address], [facility] 01/16/2024 21:31:35 06/04/20 23 repair of tendo achilles completed Chana Krishnan [facility] 07/09/2023 14:14:47 02/08/20 22 tooth extraction completed Anali molina [facility] 09/09/2023 13:19:42 11/23/19 20 vasectomy completed Tito Hdz MD [address], [address], [facility] 11/26/2019 12:39:28 06/04/20 18 Cerumen Removal completed Tito Hdz MD [address], [address], [facility] 06/04/2018 10:24:16 05/11/20 18 Oral surgery procedure completed Dionne Stewart [facility] 06/04/2018 09:40:01 11/27/18 71 Circumcision completed Pebbles Barros [facility] 06/04/2021 08:46:28 Oral surgery procedure completed Chana Krishnan [facility] 06/13/2022 15:40:35 Imaging Results Imaging Date Name Status LastModified by Organiz ation Details LastModified Time 04/14/2024 US, chest completed [email or web address] Information no t available 05/07/2024 15:31:13 Procedure Notes None recorded. Medical Equipment None Reported. Allergies Allergen ID Allergen Name Allergen Category Reaction Reaction Severity Criticality Documentation Date Start Date Code Code System Note Provider Name and Address Organization Details Recorded Time 75166 sertralin e medicatio n abdominal pain diarrhea Not available Not available Not available 04/15/2024 15543 RxNorm MISSY Romo [facility] 4 11:23:14 Medications Name Sig Start [...] ER 20 mg 24hr capsule,ex tend release TAKE 1 CAPSULE BY MOUTH EVERY DAY active Not Available Not Available No t Available oseltamivi r 75 mg capsule Take 1 [...] Updated DateTime 4 185.42 cm 29.8 kg/m2 156474. 58 g 74 /min 97 % 97 % 98.3 [degF] 111 mm[Hg] 71 mm[Hg] Chana Krishnan MA [facility] 4 15:04:41 Date Recorded Body height Provider Name an d Address Organization Details Last Updated DateTime 04/09/2024 185.42 cm Shantel Doty MA [facility] 04/09/2024 14:55:55 Date Recorded Body height Body mass index (BMI) Body weight Heart rate Oxygen saturation Oxygen saturation in Arterial blood by Pulse oximetry Body temperature Systolic blood pressure Diastolic blood pressure Provider Name and Address Organization Details Last Updated DateTime 4 185.42 cm 28.8 kg/m2 96847.1 4 g 81 /min 97 % 97 % 97.9 [degF] 115 mm[Hg] 69 mm[Hg] Anali garcia MA [facility] 4 11:21:18 Date Recorded Body height Body mass index (BMI) Body weight Oxygen saturation Oxygen saturation in Arterial blood by Pulse oximetry Heart rate Body temperature Systolic blood pressure Diastolic blood pressure Provider Name and Address Organization Details Last Updated DateTime 4 185.42 cm 29.9 kg/m2 548215. 68 g 98 % 98 % 78 /min 98.7 [degF] 134 mm[Hg] 77 mm[Hg] Alberta Mena MA [facility] 4 12:59:28 Social History Question Answer Notes LastModified by Organizat ion Details LastModified Time Tobacco Smoking Status Never Smoker Not Available [employer] 04/11/2020 03:36:41 Do You Have An Advance Directive? Yes HCP- -Sharona Information not available 07/09/2023 What Is Your Level Of Alcohol Consumption? Occasional [id number] Information not available 04/11/2020 Is Blood Transfusion Acceptable In An Emergency? Yes [id number] Information not available 04/11/2020 What Is Your Level Of Caffeine Consumption? None Decaf Information not available 07/09/2023 How Much Tobacco Do You Chew? None [id number] Information not available 04/11/2020 Are You Currently Employed? Yes [employer] [facility] Information not available 06/13/2022 What Type Of Diet Are You Following? VEGETARIAN [id number] Information not available 04/11/2020 Which Illicit Or Recreational Drugs Have You Used? None [id number] Information not available 04/11/2020 Do You Or Have You Ever Used E-cigarettes Or Vape? 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 05/31/2024 [email or web address] Information not available 05/31/2024 How Many Children Do You Have? 3 [id number] Information not available 04/11/2020 Do You Use [...] Age Did You Start Smoking Tobacco? 1 [id number] Information not available 04/11/2020 Are You Passively Exposed To Smoke? No Information not available 12/27/2015 Do You Or Have You Ever Used Smokeless Tobacco? Never Used Smokeless Tobacco [id number] Information not available 04/11/2020 How Much Tobacco Do You Smoke? No [id number] Information not available 04/11/2020 Do You Use Any Illicit Or Recreational Drugs? No Information not available 07/09/2023 Do You Use Sunscreen Routinely? Yes [id number] Information not available 04/11/2020 How Many Years Have You Smoked Tobacco? 0 [id number] Information not available 04/11/2020 Do You Or Have You Ever Used Any Other Forms Of Tobacco Or Nicotine? No Information not available 07/09/2023 Sex: Unknown Functional Status Question Answer Note LastModified by Organizat ion Details LastModified Time Are you able to walk? [email or web address] Information not available 07/09/2023 Are you able to care for yourself? Yes [id number] Information not available 04/11/2020 What is your exercise level? Occasional 07/09/23 upper strength exercises due to foot surgery Information not available 07/09/2023 Mental Status None recorded. Family History Relationship Description Onset Age of this Age Resolved Age Notes LastModified by Organization Details LastModified Time Unspecified Relation Adopted [email or web address] Not available 2023 13:50:23 Unspecified Relation Alcohol abuse abolcun Not available 2019 09:48:24 Unspecified Relation Substance abuse [email or web address] Not available 2020 08:43:15 Mother Heart disease [email or web address] Not available 06/13 16:09:10 Medical History Condition Response Obesity N Vision or Eye Problems Y ADHD Y Ear or Hearing Problems Y Chicken Pox Y Immunizations Vaccine Type Date Status Note Provider Name and Address Organization Details Recorded Time Influenza, MDCK, quadrivalent, preservative 03/03/20 20 completed MISSY Luz [facility] 06/04/2021 08:46:48 COVID-19 vaccine, vector-nr, rS-Ad26, PF, 0.5 mL 08/16/19 21 completed MISSY Luz, [facility] 06/04/2021 08:46:48 COVID-19, mRNA, LNP-S, PF, 30 mcg/0.3 mL dose 04/01/20 21 completed MISSY Kincaid, [facility] 08/27/2022 15:29:55 Tdap 12/27/19 16 completed MISSY Bowling, [facility] 06/13/2022 15:28:54 COVID-19, mRNA, LNP-S, bivalent, PF, 50 mcg/0.5 mL or 25mcg/0.25 mL dose 05/26/20 22 completed MISSY Bowling, [facility] 06/13/2022 15:28:54 Influenza, MDCK, quadrivalent, PF 05/26/20 22 completed MISSY Kincaid, [facility] 07/13/2022 10:24:18 Influenza, split virus, quadrivalent, PF 04/01/20 21 completed MISSY Kincaid, [facility] 08/27/2022 15:29:55 Tdap 10/15/19 24 completed MISSY Mcdonald, [facility] 10/20/2023 15:37:28 Influenza, split virus, quadrivalent, PF 05/30/20 17 cancelled patient objection Not Available [facility] 06/26/2019 02:22:13 Influenza, split virus, quadrivalent, PF 06/04/20 18 cancelled patient objection Not Available [facility] 06/26/2019 02:22:15 Influenza, split virus, trivalent, PF 04/15/20 24 completed MISSY Bashir, [facility] 04/15/2024 12:24:53 Past Encounters Encounter ID Performer Location Encounter Start Date Encounter Closed Date Diagnosis/Indication Diagnosis SNOMED-CT Code Diagnosis ICD10 Code Diagnosis Note [id number] Richard Moscoso MD Main Office [address] [facility] [place] [address] 08/22/2015 15:16:22 08/22/2015 16:48:14 Vertigo 228040578 R42 seen c Dr. Moscoso - no rec. meclizine since dizziness is episodic and meclizine is sedating [id number] Tito Hdz MD Main Office [address] [facility] [address] [place] [address] 12/27/2015 14:57:45 12/27/2015 16:20:20 Adult health examination 928806517 Z00.01 Immunizati on status updated, Flu advised in the Fall. Regular dental and ophtho care advised as well as seat belt and sunscreen use. Distracted driving discussed. Advance directives in place. Body mass index 25-29 - overweight 303037476 E66.3 Vertigo 725605073 R42 Persistent issue without response to vestibular therapy. Will refer to ENT for further eval in light of comorbid tinnitus and hearing loss. Administra tion of diphtheria, pertussis, and tetanus vaccine 981846334 Z23 Thyroid nodule 367164264 E04.1 Will see if u/s confirms exam findings. Evaluate further depending on test results. [id number] Tito Hdz MD Main Office [address] [facility] [address] [place] [address] 04/04/2016 15:14:50 04/04/2016 16:21:59 Tinnitus 38026181 H93.13 Constellat ion of symptoms suggestive to possible Meniere's disease but ENT eval did not corroborat e this. Will ask neuro for opinion. Dizziness 958151654 R42 s/p negative ENT eval. Symptoms aren't consistent ly related to exertion and with normal ECG cardiac etiology seems unlikely. Will ask neuro for input and check echo to rule out structural heart disease. [id number] Tito Hdz MD Main Office [address] [facility] [address] [place] [address] 05/23/2016 15:24:13 05/23/2016 16:15:29 Vertigo 999738828 R42 Await neuro evaluation . Cough 16743171 R05 Sound post infectious likely viral inflammati on related. If xray abnormal will cover with abx. Otherwise will follow after a short course of prednisone . Wheezing 32163415 R06.2 Pt advised of common/ser ious potential side effects and to call with any problems. [id number] Eleanor Martinez Main Office [address] [address] [place] [address] 08/06/2016 15:57:21 08/06/2016 16:25:25 Acute sinusitis 34261433 J01.90 Continue and complete Abx. Start Fluticason e and Nasal saline solution BID. Medrol dose pack as directed. F/u as needed. [id number] Tito Hdz MD Main Office [address] [address] [place] [address] 08/14/2016 10:23:20 08/14/2016 11:32:01 Recurrent sinusitis 212869789 J32.9 25 minute office visit with greater than 50% of the visit face-to-fa ce with the patient and/or family providing counseling and/or coordinati on of care. Impacted cerumen 7483064 6 H61.21 [id number] Tito Hdz MD Main Office [address] [address] [place] [address] 11/29/2016 09:57:27 11/29/2016 11:02:43 Chronic sinusitis 52993425 J32.9 Will hold off on po abx/steroi ds unless CT confirms sinusitis. Refer to ENT if anatomical abnormalit ies are seen. To allergy if just persistent sinusitis. [id number] Tito Hdz MD Main Office [address] [address] [place] [address] 05/30/2017 15:06:12 05/30/2017 15:58:13 Needs influenza immunization 770039001 Z23 Adult heal th examination 307693243 Z00.01 Immunizati on status updated, Flu declined. Regular dental and ophtho care advised as well as seat belt and sunscreen use. Distracted driving discussed. Advance directives in place. Chronic sinusitis 490138 00 J32.9 Will hold off on po abx/steroi ds unless symptoms don't improve or second sickening occurs. Body mass index 25-29 - overweight 540502913 E66.3 Z68.25 [id number] Forest Bradshaw MD Main Office [address] [address] [place] [address] 01/28/2018 16:38:40 01/28/2018 17:17:47 Patient encounter status 988698618 Z30.09 Acute back pain with sciatica 256672693 M54.42 This is improving. He will do exercises and will call if there is an exacerbati on. [id number] Tito Hdz MD Main Office [address] [place] [address] 03/10/2018 15:30:14 03/10/2018 16:29:09 Atypical pneumonia 726608443 J18.9 Constellat ion of symptoms and exam findings lead me to suspect an atypical bacterial process. CXR if symptoms persist/wo rsen. Wheezing 90546165 R06.2 Tolerated prednisone in the past. Pt advised of common/ser ious potential side effects and to call with any problems. [id number] Dionne Stewart MA Main Office [address] [place] [address] 06/04/2018 09:10:38 06/04/2018 10:26:28 Adult health examination 689740575 Z00.00 Immunizati on status ut, Flu declined. Screening utd based on risk factors. Regular dental and ophtho care advised as well as seat belt and sunscreen use. Distracted driving discussed. Advance directives in place. Needs infl uenza immunization 998807835 Z23 Obesity 226759644 E66.9 Z68.30 Impacted c erumen of bilateral ears 5294975047 170521 H61.23 Asymmetric al hearing loss 953924252 H91.92 Had a hearing screen in 2016 which confirmed this. Will gauge how he feels after lavage and call for f/u referral if worse. [id number] Tito Hdz MD Main Office [address] [place] [address] 06/30/2018 12:41:08 06/30/2018 13:19:38 Low back strain 348290630 S39.012A Likely muscle strain/par aspinal muscle spasm. Good hydration and heat/cold compresses advised. Will contiue OTC NSAIDs (Proper ibuprofen dosing discussed) . Call inb/worse or if additional symptoms develop. [id number] Tito Hdz MD Main Office [address] [address] [place] [address] 12/24/2018 09:52:40 12/24/2018 10:49:36 Plantar fasciitis 054697354 M72.2 Improved shoe comfort/ar ch support advised along with home PT. Will try formal PT if persistent /worse. Pain in right knee 70392 11284 38089 M25.561 c/w patellar tendinitis . Try brace/NSAI D and PT. Call inb/worse. [id number] Tito Hdz MD Main Office [address] [address] [place] [address] 05/31/2019 09:22:21 05/31/2019 10:32:36 Adult health examination 550265932 Z00.00 Immunizati on status utd, flu declined. Screening utd based on risk factors. Regular dental and ophtho care advised as well as seat belt and sunscreen use. Distracted driving discussed. Advance directives in place. Obesity 665058048 E66.9 Z68.30 Hearing loss 11685178 H9 1.92 [id number] Tito Hdz MD Main Office [address] [address] [place] [address] 07/13/2019 10:56:53 07/13/2019 11:55:25 Right Achilles tendinitis 6291690228 96895 M76.61 OTC orthotic advised as well as home PT while waiting to get appt for formal PT/ortho. Call inb/worse or if appointmen ts don't fall into place. [id number] Tito Hdz MD Main Office [address] [address] [place] [address] 06/01/2020 09:28:43 06/01/2020 10:47:38 Adult health examination 690848379 Z00.00 Immunizati on status utd, flu declined. Screening utd based on risk factors. Regular dental and ophtho care advised as well as seat belt and sunscreen use. Distracted driving discussed. Advance directives in place. Body mass index 25-29 - overweight 906393075 E66.3 Z68.29 Right Achi lles tendinitis 4948903052 90616 M76.61 Chronic issue, possibly stemming from injury as a child. Will schedule appt with podiatry. Screening for malignant neoplasm of colon 544313824 Z12.11 Family his tory of Cardiovascular disease 777930047 Z82.49 Recently tracked down his mother and obtained family history from her side. Males with young CVD. Adjustment disorder with depressed mood 22738654 F43.21 Coping fairly well. 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 Screening for malignant neoplasm of prostate 641686374 Z12.5 [id number] Jason Lux PA-C Main Office [address] [facility] [address] [place] [address] 06/04/2021 08:42:16 06/04/2021 10:34:32 Adult health examination 332054223 Z00.00 Hyperbilirubinemia 34344 006 E80.6 Screening for cardiovascular system disease 723547446 Z13.6 Benign pro static hyperplasia without outflow obstruction 869426705 N40.0 Screening for malignant neoplasm of colon 291950060 Z12.11 Body mass index 30+ - obesity 586211882 E66.9 Z68.30 Varicella vaccination 68 371700 Z23 Hepatitis C screening 41 4539870 Z11.59 Decreased hearing 693640 001 H91.92 Impacted c erumen in right ear 4527218240 163931 H61.21 [id number] Amara Lux PA-C [facility] [address] [address] 09/17/2021 10:56:10 09/17/2021 15:36:28 COVID-19 504987352 U07.1 [id number] Tito Hdz MD Main Office [address] [address] 06/13/2022 15:18:34 06/13/2022 16:27:48 Adult health examination 422589539 Z00.00 Immunizati on status utd. Will screen based on risk factors. Regular dental and ophtho care advised as well as seat belt and sunscreen use. Distracted driving discussed. Advance directives in place. Screening for malignant neoplasm of colon 805543816 Z12.11 Did not reschedule previously arranged appt at [facility] after they cancelled on him. Issue centered around him starting a new job. Will call them to reschedule katia. Advised to let me know if there are any issues rescheduli ng. Nocturia 156514449 R35.1 Adjustment disorder with depressed mood 31064840 F43.21 Symptoms a mild/non limiting. Not sure that his attention issues are related to this. Disturbanc e of attention 95807493 R41.840 Was on stimulant in the past, using caffeine to address this. Will revisit stimulmant therpay and monitor/ad just medication dose/type depending on response. Sensorineu ral hearing loss 81546980 H90.5 Recently outfitted with assist devices. Body mass index 30+ - obesity 972140142 Z68.30 E66.9 Total bili glynn above reference range 4873553540 81572 R17 Will reassess. 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 [id number] ALEXANDER RUSHING MD Main Office [address] [facility] [address] [facility] [place] [address] 07/13/2022 09:16:39 07/13/2022 09:38:41 Acute bronchitis 46788686 J20.9 - started on 07/09- at this most likely viral in etiology based on patients' symptoms and duration- ordered a chest x-ray to ensure no possible pneumonia, if positive will start on antibiotic regimen- benzonatat e 200mg TID as needed already ordered- due to the SOB and diminished air sounds on exam, ordered prednisone - Tylenol OTC, not to exceed package insert for pain or fever q4-6h advised prn. Counselled on not exceeding more than 3g/day. - Throat Lozenges otc prn for sore throat - saltwater gargle - adequate hydration enforced - saline sprays - humidifier use enforced. - return precaution s given [id number] Tito Hdz MD [facility] [address] [facility] [address] [facility] [place] [address] 07/19/2022 12:32:21 07/19/2022 14:18:13 Pneumonia 297010634 J18.9 Suspect atypical bacterial pneumonia. Will cover accordingl y and see if extended steroid taper helps with cough. [id number] Tito Hdz MD [facility] [address] [address] [place] [address] 07/26/2022 12:52:18 07/26/2022 13:50:48 Attention deficit hyperactivity disorder, predominantly inattentive type 16923475 F90.0 Tolerating treatment well for now. Will reassess in 3-4 weeks after getting off of prednisone and using it more consistent ly. Continue current dose for now. 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 9 resolved p abx and pred taper [id number] Jason Lux PA-C Main Office [address] [address] [place] [address] 04/10/2023 15:00:26 04/10/2023 15:35:50 Left Achilles tendinitis 2133110489 84758 M76.62 seen by ent physician in past, had PT recently, does HEP - persists - will get ortho eval, ? likely needs sx [id number] Jason Lux PA-C Main Office [address] [address] [place] [address] 07/09/2023 13:49:21 07/09/2023 15:26:19 Adult health examination 308626614 Z00.00 Screening for malignant neoplasm of colon 363720672 Z12.11 Left Achil les tendinitis 4717107028 91845 M76.62 seen by ent physician in past, had PT recently, does HEP - persists - will get ortho eval, ? likely needs sx 1.24 - had sx, wearing boot, pending begin PT, cont f/u c ortho 2.9.24 Cough 87899000 R05.9 x few wks, negative home covid test x 2h/o walking pna - feels similarc/o chest>head congestion no sob at rest, but some doeno wheezing, f/cprn zabrina, nyquil - contsee belowcheck cxr - rx c abx if + Mixed hyperlipidemia 267 993891 E78.2 Cholestero l levels are normal except for a low HDL. This is best addressed with a high plant fiber, low saturated fat diet. 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 Persistent cough 5018960 02 R05.3 Benzonatat e has been helping so we will continue this. [id number] Tito Hdz MD Main Office [address] [facility] [address] [place] [address] 09/09/2023 12:49:19 09/09/2023 14:01:25 Acute deep venous thrombosis of left lower extremity 5655088653 63657 I82.402 Provoked post operative with to other obvious risk factors. With unclear family history will confirm improvemen t/resoluti on with d-dimer and doppler in 3 months and if reassuring d/c apixiban. If persistent or recurrent will need to consider hypercoagu lable w/u and heme or vascular consultati on. [id number] Eleanor Martinez Main Office [address] [facility] [address] [place] [address] 10/20/2023 15:28:57 10/20/2023 15:58:38 Facial laceration 317404865 S01.81XA right forehead laceration Accidental ly struck by or against stationary object 604510638 W22.8XXA [id number] Tito Hdz MD Main Office [address] [facility] [address] [place] [address] 12/09/2023 11:26:45 12/09/2023 12:11:25 Acute deep venous thrombosis of left lower extremity 1128275114 33808 I82.402 Provoked post operative with to other obvious risk factors. With unclear family history this makes a hypercoagu lable w/u potentiall y indicated. Will await vascular consult and continue anticoagul ation until then. Umbilical mass 568280836 R19.05 ? hernia vs diastasis recti. Will see what u/s shows. Attention deficit hyperactivity disorder, predominantly inattentive type 22492589 F90.0 Tolerating treatment and responding well to stimulant therapy for now. [id number] Tito Hdz MD Main Office [address] [place] [address] 03/09/2024 14:42:04 03/09/2024 15:31:46 Acute deep venous thrombosis of left lower extremity 0098624200 56090 I82.402 Provoked post operative with to other obvious risk factors. With unclear family history this makes a hypercoagu lable w/u potentiall y indicated. Will await repeat doppler as well as vascular consult f/u and continue anticoagul ation until then. Attention deficit hyperactivity disorder, predominantly inattentive type 96583177 F90.0 Tolerating treatment and responding well to stimulant therapy. Needs infl uenza immunization 879168545 Z23 PATIENT WILL RECEIVE FLU VACCINE AT LATER DATE [id number] Tito Hdz MD [facility] [address] [place] [address] 04/09/2024 14:51:53 04/09/2024 16:30:31 Moderate major depression, single episode 91983943 F32.1 Significan tly limiting symptoms despite undergoing therapy. Willing to try SSRI and will go with rx that his children seem to tolerate. Understand s potential side effects and to be patient with time to take effect. Given severity of symptoms will try 50mg dosing to start. May need to adjust depending on tolerance and symptom response. Panic disorder 057129466 F41.0 Generalize d anxiety disorder 63985539 F41.1 Advised of common/ser ious potential side effects and not to mix with alcohol, ok to use for both panic attacks and sleep. [id number] KIMBERLY TSE Main Office [address] [place] [address] 04/15/2024 11:07:45 04/15/2024 11:43:12 Chest pain 50756103 R07.9 reviewed hospital documentat ion-was evaluated at [facility] [place] 04[place]14 for chest pain>ekg, chest xray, labwork was unremarkab le-troponi n of 6, symptoms resolved-s caryn discharge, has not experience d cardiac symptoms Needs infl uenza immunization 897654489 Z23 19 YEARS AND OLDER ONLY Moderate m ajor depression, single episode [id number] F32.1 -stopped sertraline due to AE of abdominal pain and diarrhea>s ymptoms resolved after stopping medication -will trial escitalopr am 10mg and has f/u with AW on 05/07 [id number] Tito Hdz MD Telehealt h [address] [facility] [address] [place] [address] 05/07/2024 14:29:22 05/10/2024 14:09:10 Moderate major depression, single episode 83367704 F32.1 Intolerant to sertraline , symptoms responding to escitalopr am and stressor mitigation . Will continue current dose for now and titrate as indicated. Attention deficit hyperactivity disorder, predominantly inattentive type 75459781 F90.0 Tolerating treatment and responding well to stimulant therapy. [id number] Jason Lux PA-C Main Office [address] [facility] [address] [place] [address] 05/31/2024 12:42:40 05/31/2024 13:49:31 Adult health examination 492463890 Z00.00 Screening for malignant neoplasm of colon 621552594 Z12.11 rec'd rx's from gi, but not scheduled for colon - encouraged [place] to [place] [facility] Left Achil les tendinitis [id number] 79795 M76.62 seen by ent physician in past, had PT recently, does HEP - persists - will get ortho eval, ? likely needs sx 1.24 - had sx, wearing boot, pending begin PT, cont f/u c ortho 2.9.24 12.24 - pt resumed PT, cont f/u c ortho Mixed hyperlipidemia 267 862453 E78.2 Cholestero l levels are normal except for a low HDL. This is best addressed with a high plant fiber, low saturated fat diet and increase aerobic ex. 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 - cont as dir 12.24 - pt requested refill Body mass index 25-29 - overweight 964063966 E66.3 Z68.29 Nocturia 234298145 R35.1 Vitamin D deficiency 347 32172 E55.9 Acute deep venous thrombosis of left lower extremity 0411690245 13438 I82.402 cont AC as dir, cont f/u c vasc 3.25 & 4.25 Itching of skin 58278075 0 L29.9 cont moist lotion to LLE, but consider prn zyrtec Hearing loss 03607932 H9 1.92 pt requested eval Single epi sode of major depression in full remission 13972745 F32.5 carmina/phq scores sig lower off med x 3 wks (took self off med) - feels sig better, family situation betterrare use of prn benzo Health Concerns Section Related Observation LastModified by Organization Detai ls LastModified Time None Recorded Concern Status LastModified by Organization Details LastModified Time None Recorded Advance Directives Directive Y: HCP- -Sharona Payers Encounter Date Sequence Insurance Name Policy Number Policy Ashley Covered Member ID Ashley Member ID Guarantor Name 03/09/2024 1 *SELF PAY* Natalia Camacho 04/09/2024 1 [employer] [id number] Charles Camacho [id number] Charles Camacho 04/15/2024 1 [employer] [id number] Charles Camacho [id number] Charels Camacho 05/07/2024 1 [employer] [id number] Charles Camacho [id number] Charles Camacho 05/31/2024 1 [employer] [id number] Charles Camacho [id number] Charles Camacho Notes Date Note Type Note [...] anticoagulation based on result. Tito Hdz MD [address] [facility] [address], , [address], [facility] 03/24/2024 22:36:16 04/09/2024 text/html Anxiety/Depressi onRep orted [...] been on sertraline and tolerate it well. Ttio Hdz MD [address] [facility] [address], , [address], [facility] 04/15/2024 12:33:37 04/15/2024 text/html Charles is a 53y r old M who presents for a hospital f/u. PMH of DVT- on eliquis. [facility]: 04/14/24 Charles was [place] [facility] [place]. Symptoms of midsternal chest pain while walking, radiated up to neck and down to kidneys/low back. Was given aspirin by EMS- symptoms started to subside. EKG, chest x-ray, and lab work was unremarkable. No signs of ischemia, no leukocytosis/anemia, or gross electrolyte abnormalities. KIMBERLY TSE [address] [address], , [address], [facility] 04/15/2024 11:42:37 05/07/2024 text/html Anxiety/Depressi onRep orted [...] No recurrence since. Tito Hdz MD [address] [address], , [address], [facility] 05/09/2024 23:22:00 05/31/2024 text/html here for annual pe. Jason Lux PA-C [address] [address], , [address], [facility] 05/31/2024 13:52:16
--- OUTSIDE RECORDS SUMMARY | 2024-06-29 17:42 | XMS_ITS | Continuity of Care Document ---
Author Organization [facility], Main Office Address [address] [facility] [address] [place] [address] Care Team Providers Care Foreign Banknote Teller Name Role Phone TITO HDZ Primary Care Provider TAMI WORRELL Soil Fertility Specialist KUSH [facility] JAYDA LOCK Urologist [facility] Orthopedic Surgeon CAT PINEDA Orthopedic Surgeon [facility] Pinmaker [facility] GASTRO[facility] Supervisor Home Rest[employer] Service [facility] VASCULAR Vascular Surgeon Assessment No assessment recorded. Plan of Treatment Reminders Order Date Submit Date Provider Last Modified By Organization Details Last Modified Time Details Appointments telehealt h20 2024 02:45P M Tito Hdz MD Not available Not available Not available Lab lipid panel, serum 2023 024 [place] [facility], [address] , [facility] [address], [place], [address], 06/02/2024 06:07:08 vitamin D, 25-hydrox y, total, serum 2023 024 [place] [facility], [address], [place], [address], 06/02/2024 06:07:09 PSA, total, serum or plasma 2023 024 [place] [facility], [address], [place], [address], 06/02/2024 06:07:08 CMP, serum or plasma 2023 024 [place] [facility], [address], [place], [address], 06/02/2024 06:07:07 CBC w/ auto diff 2023 024 [place] [facility], [address], [place], [address], 06/02/2024 06:07:06 Referral audiologi referral 2023 024 [email or web address] [facility], [address] [place] [address] [place], [address], 05/31/2024 13:49:31 nutrition ist/dieti [facility] referral 2023 024 [email or web address] Not available 05/31/2024 13:49:31 Procedures None recorded. Surgeries None recorded. Imaging None recorded. 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 7 10:40:21 History of Lyme disease 890620204 Completed 07/13/2022 MISSY Kincaid [facility] 3 09:15:53 Body mass index 25-29 - overweigh t 675212383 Completed 06/04/2018 Tito Hdz MD [address], [place], [address], [facility] 8 10:03:27 Thyroid nodule 859557174 Completed 01/17/2016 Tito Hdz MD [address], [place], [address], [facility] 6 06:06:56 Tinnitus 58255673 Completed 201508/14/2016 Denita Dong [place] [facility], [facility] 7 10:41:15 Acute sinusitis 27689627 Completed 201605/30/2017 Tito Hdz MD [address], [place], [address], [facility] 7 15:32:08 Chronic sinusitis 57438339 Completed 201606/04/2018 Tito Hdz MD [address], [place], [address], [facility] 8 10:03:41 Adult health examinati on Completed 201605/30/2017 Tito Hdz MD [address], [place], [address], [facility] 7 16:01:53 Knee pain Completed 201805/31/2019 Tito Hdz MD [address], [place], [address], [facility] 9 10:01:15 Osteoarth ritis of right knee joint 485065413810 100 Active 2018 Tito Hdz MD [address], [place], [address], [facility] 9 07:02:46 Sprain of posterior cruciate ligament of knee 313956537 Completed 201806/01/2020 Tito Hdz MD [address] [address], [address], [facility] 0 10:22:03 Chondroma lacia of patella 85324424 Completed 201806/01/2020 Tito Hdz MD [address] [address], [address], [facility] 0 10:22:34 Hearing loss 98460649 Active 2018 Tito Hdz MD [address] [address], [address], [facility] 9 10:03:02 Bilateral tinnitus 484233405446 2 Active 2018 Tito Hdz MD [address] [address], [address], [facility] 9 10:03:10 Obesity 789342837 Completed 201806/01/2020 Tito Hdz MD [address] [address], [address], [facility] 0 10:20:22 Family history of Cardiovas cular disease 162945775 Active 2019 Tito Hdz MD [address] [address], [address], [facility] 0 10:30:03 Adjustmen t disorder with depressed mood 46869937 Completed 201905/09/2024 Tito Hdz MD [address] [address], [address], [facility] 4 23:21:00 Achilles tendiniti s 77894251 Completed 202006/13/2022 Tito Hdz MD [address], [place], [address], [facility] 3 16:08:11 Calcaneal spur 36694850 Active 2020 Tito Hdz MD [address], [place], [address], [facility] 1 15:52:22 COVID-19 338503427 Completed 202106/13/2022 Tito Hdz MD [address], [place], [address], [facility] 3 16:00:26 Sensorine ural hearing loss 85185991 Active 2021 Tito Hdz MD [address], [place], [address], [facility] 2 19:37:34 Attention deficit hyperacti vity disorder, predomina ntly inattenti ve type 71931100 Active 2022 Tito Hdz MD [address], [place], [address], [facility] 3 13:36:04 Diaphragm atic eventrati on 75144600 Active 2022 Tito Hdz MD [address], [place], [address], [facility] 3 10:19:46 Left Achilles tendiniti s 363313465686 102 Active 2022 Tito Hdz MD [address], [place], [address], [facility] 3 10:01:26 Impaired fasting glycemia 799675052 Active 2023 Tito Hdz MD [address], [place], [address], [facility] 4 06:32:35 Acute deep venous thrombosi s of left lower extremity 638019779006 104 Active 2023 Tito Hdz MD [address] [address], [place], [address], [facility] 4 22:39:54 Umbilical hernia 837329918 Active 2023 Tito Hdz MD [address] [address], [place], [address], [facility] 4 09:18:14 Moderate major depressio n, single episode 79725539 Active 2023 Tito Hdz MD [address] [address], [place], [address], [facility] 4 15:49:23 Problem Notes None recorded. Procedures Surgical History Date Name Laterality Status Provider Name and Address Organization Details Recorded Time 01/07/20 24 repair of umbilical hernia completed Tito Hdz MD [address] [address], [place], [address], [facility] 01/16/2024 21:31:35 06/04/20 23 repair of tendo achilles completed [facility] 07/09/2023 14:14:47 02/08/20 22 tooth extraction completed Anali molina [place] [facility] 09/09/2023 13:19:42 11/23/19 20 vasectomy completed Tito Hdz MD [address] [address], [place], [address], [facility] 11/26/2019 12:39:28 06/04/20 18 Cerumen Removal completed Tito Hdz MD [address] [address], [place], [address], [facility] 06/04/2018 10:24:16 05/11/20 18 Oral surgery procedure completed Dionne Stewart [place] [facility] 06/04/2018 09:40:01 11/27/18 71 Circumcision completed Pebbles Barros [place] [facility] 06/04/2021 08:46:28 Oral surgery procedure completed Chana Krishnan [place] [facility] 06/13/2022 15:40:35 Imaging Results None recorded. Procedure Notes None recorded. Medical Equipment None Reported. Allergies Allergen ID Allergen Name Allergen Category Reaction Reaction Severity Criticality Documentation Date Start Date Code Code System Note Provider Name and Address Organization Details Recorded Time 56403 sertralin e medicatio n abdominal pain diarrhea Not available Not available Not available 04/15/2024 35551 RxNorm MISSY Romo [facility] 11:23:14 Medications Name Sig Start Date Stop [...] Updated DateTime 4 185.42 cm 29.9 kg/m2 278643. 68 g 98 % 98 % 78 /min 98.7 [degF] 134 mm[Hg] 77 mm[Hg] Alberta Mena MA [facility] 4 12:59:28 Social History Question Answer Notes LastModified by Organizat ion Details LastModified Time Tobacco Smoking Status Never Smoker Not Available [employer] 04/11/2020 03:36:41 Do You Have An Advance Directive? Yes HCP- -Sharona Information not available 07/09/2023 What Is Your Level Of Alcohol Consumption? Occasional [id number] Information not available 04/11/2020 Is Blood Transfusion Acceptable In An Emergency? Yes [id number] Information not available 04/11/2020 What Is Your Level Of Caffeine Consumption? None Decaf Information not available 07/09/2023 How Much Tobacco Do You Chew? None [id number] Information not available 04/11/2020 Are You Currently Employed? Yes [employer] Information not available 06/13/2022 What Type Of Diet Are You Following? VEGETARIAN [id number] Information not available 04/11/2020 Which Illicit Or Recreational Drugs Have You Used? None [id number] Information not available 04/11/2020 Do You Or Have You Ever Used E-cigarettes Or Vape? 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 05/31/2024 [email or web address] Information not available 05/31/2024 How Many Children Do You Have? 3 [id number] Information not available 04/11/2020 Do You Use [...] Age Did You Start Smoking Tobacco? 1 [id number] Information not available 04/11/2020 Are You Passively Exposed To Smoke? No Information not available 12/27/2015 Do You Or Have You Ever Used Smokeless Tobacco? Never Used Smokeless Tobacco [id number] Information not available 04/11/2020 How Much Tobacco Do You Smoke? No [id number] Information not available 04/11/2020 Do You Use Any Illicit Or Recreational Drugs? No Information not available 07/09/2023 Do You Use Sunscreen Routinely? Yes [id number] Information not available 04/11/2020 How Many Years Have You Smoked Tobacco? 0 [id number] Information not available 04/11/2020 Do You Or Have You Ever Used Any Other Forms Of Tobacco Or Nicotine? No Information not available 07/09/2023 Sex: Unknown Functional Status Question Answer Note LastModified by Organizat ion Details LastModified Time Are you able to walk? YESWOREST [email or web address] Information not available 07/09/2023 Are you able to care for yourself? Yes [id number] Information not available 04/11/2020 What is your exercise level? Occasional 07/09/23 upper strength exercises due to foot surgery Information not available 07/09/2023 Mental Status None recorded. Family History Relationship Description Onset Age of this Age Resolved Age Notes LastModified by Organization Details LastModified Time Unspecified Relation Adopted [email or web address] Not available 2023 13:50:23 Unspecified Relation Alcohol [...] quadrivalent, preservative 03/03/20 20 completed MISSY Luz [facility] 06/04/2021 08:46:48 COVID-19 vaccine, vector-nr, rS-Ad26, PF, 0.5 mL 08/16/19 21 completed MISSY Luz [facility] 06/04/2021 08:46:48 COVID-19, mRNA, LNP-S, PF, 30 mcg/0.3 mL dose 04/01/20 21 completed MISSY Kincaid [facility] 08/27/2022 15:29:55 Tdap 12/27/19 16 completed MISSY Bowling [facility] 06/13/2022 15:28:54 COVID-19, mRNA, LNP-S, bivalent, PF, 50 mcg/0.5 mL or 25mcg/0.25 mL dose 05/26/20 22 completed MISSY Bowling [facility] 06/13/2022 15:28:54 Influenza, MDCK, quadrivalent, PF 05/26/20 22 completed MISSY Kincaid, [facility] 07/13/2022 10:24:18 Influenza, split virus, quadrivalent, PF 04/01/20 21 completed MISSY Kincaid, [facility] 08/27/2022 15:29:55 Tdap 10/15/19 24 completed MISSY Mcdonald, [facility] 10/20/2023 15:37:28 Influenza, split virus, quadrivalent, PF 05/30/20 17 cancelled patient objection Not Available [facility] 06/26/2019 02:22:13 Influenza, split virus, quadrivalent, PF 06/04/20 18 cancelled patient objection Not Available [facility] 06/26/2019 02:22:15 Influenza, split virus, trivalent, PF 04/15/20 24 completed MISSY Bashir, [facility] 04/15/2024 12:24:53 Past Encounters Encounter ID Performer Location Encounter Start Date Encounter Closed Date Diagnosis/Indication Diagnosis SNOMED-CT Code Diagnosis ICD10 Code Diagnosis Note [id number] Tito Hdz MD Telehealt h [address] [facility] [address] [place] [address] 05/07/2024 14:29:22 05/10/2024 14:09:10 Moderate major depression, single episode 52451051 F32.1 Intolerant to sertraline , symptoms responding to escitalopr am and stressor mitigation . Will continue current dose for now and titrate as indicated. Attention deficit hyperactivity disorder, predominantly inattentive type 40733397 F90.0 Tolerating treatment and responding well to stimulant therapy. [id number] Jason Lux PA-C Main Office [address] [facility] [address] [place] [address] 05/31/2024 12:42:40 05/31/2024 13:49:31 Adult health examination 175635086 Z00.00 Screening for malignant neoplasm of colon 581489582 Z12.11 rec'd rx's from gi, but not scheduled for colon - encouraged pt to [place] [facility] [place] Left Achil les tendinitis 2712744215 99924 M76.62 seen by milk handler in past, had PT recently, does HEP - persists - will get ortho eval, ? likely needs sx 1.24 - had sx, wearing boot, pending begin PT, cont f/u c ortho 2.9.24 12.24 - pt resumed PT, cont f/u c ortho Mixed hyperlipidemia 267 600710 E78.2 Cholestero l levels are normal except for a low HDL. This is best addressed with a high plant fiber, low saturated fat diet and increase aerobic ex. Attention deficit hyperactivity disorder, predominantly inattentive type 73669477 F90.0 tolerating med, very helpful in [employer] school system - cont as dir 12.24 - pt requested refill Body mass index 25-29 - overweight 070503862 E66.3 Z68.29 Nocturia 181891769 R35.1 Vitamin D deficiency 347 04765 E55.9 Acute deep venous thrombosis of left lower extremity 2742131917 20487 I82.402 cont AC as dir, cont f/u c vasc 3.25 & 4.25 Itching of skin 52850961 0 L29.9 cont moist lotion to LLE, but consider prn zyrtec Hearing loss 18101088 H9 1.92 pt requested eval Single epi sode of major depression in full remission 55660118 F32.5 carmina/phq scores sig lower off med [...] Ashley Member ID Guarantor Name 05/31/2024 1 [employer] [id number] Charles Camacho [id number] Charles Camacho Notes Date Note Type Note Provider Name and Address Organization Details Recorded Time 05/31/2024 text/html here for annual pe. Jason Lux PA-C [address] [address], [place], [address], [facility] 05/31/2024 13:52:16
== END 2024-06-29 16:01 | disposition home or self-care (01) ==
LOC: HO.SH 16:00
PROVIDERS: Visit Provider Physician Assistant Medical
DX: Z01.118 Encounter for examination of ears and hearing with other abnormal findings (principal); H90.3 Sensorineural hearing loss, bilateral
CPT/HCPCS: 92557

== ENCOUNTER 2024-09-21 15:51 | Outpatient (REF) | payer SELFPAY ==
--- OUTSIDE RECORDS SUMMARY | 2024-09-21 18:48 | XMS_ITS | Data Portability ---
Author Organization [place] - [facility], [facility] Address [address] [place] [address] Care Team Providers Care Multicultural Internship Name Role Phone KISHAKELLEN BERRIOS Primary Care Provider [phone] Assessment Encounter Date Assessment Date Assessment LastModified by Organization Details LastModified Time 06/14/2024 06/14/2024 Assessment: Pt demonstrates good brad for rx today. Plan: Continue to progress LE strengthening as tolerated. [email or web address] Not available 06/14/2024 17:57:14 06/16/2024 06/16/2024 Assessment: Pt demonstrates good brad for rx today. Plan: Continue to progress LE strengthening as tolerated. Not available 06/15/2024 18:10:52 06/28/2024 06/28/2024 Assessment: Pt demonstrates weak hip abductors and core muscles. Quick fatigues after exercises. Plan: Continue to progress LE strengthening as tolerated. [email or web address] Not available 06/28/2024 18:39:10 07/05/2024 07/05/2024 Assessment: Pt able to perform all ther-ex without increased sxs but quick fatigues. Reviewed HEP with proper body mechanics. All questions and concerns were addressed and answered. Plan: D/c to independent HEP. Recheck with on 08/03/24. [email or web address] Not available 07/05/2024 19:07:57 Plan of Treatment Reminders Order Date Submit Date Provider Last Modified By Organization Details Last Modified Time Details Appointments RECHECK 15 2024 03:00P Chris Granados MD Not available Not available Not available Lab None recorded . Referral None recorded . Procedures None recorded . Surgeries None recorded . Imaging None recorded . Medication Orders None recorded . Patient TargetsNo targets recorded. Patient InstructionsNo instructions recorded. Reason for Referral None Reported. Results Created Date Observation Date Name Description Value Unit Range Abnormal Flag Note LastModifiedBy Organization Detail LastModifiedTime 05/17/20 24 05/17/2024 XR, ankle , 3 or more view http:/ [email or web address] ?Encry pted=s hAaTro YD8dLq bEUv6g %2BXZw aYqtaq 0bqfl% 2Fg9IQ a4ajBk vP9nXo QUaueC m3YtLR FvZlgJ JJ8mAn HZtai3 1a5151 AC0Kqa XSCUqC jKiQtr MwF INTERFACE [employer] [facility] [address], [place], [address], 05/17/2024 15:05:20 05/17/20 24 05/17/2024 XR, ankle , 3 or more view [email or web address] ?Encry pted=s hAaTro YD8dLq bEUv6g %2BXZw aYqtaq 0bqfl% 2Fg9IQ a4ajBk vP9nXo QUaueC m3YtLR FvZlgJ JJ8Salem HZtai3 7p0919 AC0Kqa XSCUqC jKiQtr MwF INTERFACE [employer] [facility] [address], [place], [address], 05/17/2024 15:05:22 Result Notes None recorded. 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 4 08:46:41 Problem Notes None recorded. Procedures Surgical History Date Name Laterality Status Provider Name and Address Organization Details Recorded Time 10/03/19 24 85839 Therapeutic Exercise (1:1) completed Dayne Rice DPT [address], [place], [address], [facility] 10/03/2023 15:55:02 10/03/19 69905: Neuromuscular Re-Education completed Dayne Rice DPT [address], [place], [address], [facility] 10/02/2023 21:45:59 10/03/19 27589: Manual therapy completed Dayne Rice DPT [address], [place], [address], [facility] 10/03/2023 15:51:33 10/01/19 09166 Therapeutic Exercise (1:1) completed Dayne Rice DPT [address], [place], [address], [facility] 10/01/2023 18:08:02 10/01/19 90603: Neuromuscular Re-Education completed Dayne Rice DPT [address], [place], [address], [facility] 10/01/2023 18:07:55 10/01/19 84935: Manual therapy completed Dayne Rice DPT [address], [place], [address], [facility] 10/01/2023 18:12:14 09/18/19 52679 Therapeutic Exercise (1:1) completed Candie Perry PTA [address], [place], [address], [facility] 09/18/2023 14:48:15 09/18/19 04661: Neuromuscular Re-Education completed Candie Perry PTA [address], [place], [address], [facility] 09/18/2023 14:50:01 09/18/19 51265: Manual therapy completed Candie Perry PTA [address], [place], [address], [facility] 09/17/2023 17:40:14 09/16/19 36996 Therapeutic Exercise (1:1) completed Candie Perry PTA [address], [place], [address], [facility] 09/16/2023 15:37:11 09/16/19 01852: Manual therapy completed Candie Perry PTA [address], [place], [address], [facility] 09/16/2023 15:37:18 09/12/19 95906 Therapeutic Exercise (1:1) completed Dayne Rice DPT [address], [place], [address], [facility] 09/12/2023 16:46:15 09/09/19 47833 Therapeutic Exercise (1:1) cancelled Dayne Rice DPT [address], [place], [address], [facility] 09/09/2023 09:15:02 09/09/19 93102: Manual therapy cancelled Dayne Rice DPT [address], [place], [address], [facility] 09/09/2023 09:15:02 09/05/19 20791 Therapeutic Exercise (1:1) completed Candie Perry PTA [address], [place], [address], [facility] 09/05/2023 11:40:44 09/05/19 25164: Manual therapy completed Candie Perry PTA [address], [place], [address], [facility] 09/05/2023 11:40:46 09/02/19 75377 Therapeutic Exercise (1:1) completed Dayne Rice DPT [address], [place], [address], [facility] 09/01/2023 21:33:01 09/02/19 57344: Hot or Cold Pack completed Dayne Rice DPT [address], [place], [address], [facility] 09/02/2023 14:54:29 08/29/19 56449 Therapeutic Exercise (1:1) cancelled Dayne Rice DPT [address], [place], [address], [facility] 08/28/2023 22:35:26 08/29/19 24 42463: Manual therapy cancelled Dayne Rice DPT [address], [place], [address], [facility] 08/28/2023 22:35:26 08/26/19 50311 Therapeutic Exercise (1:1) completed Dayne Rice DPT [address], [place], [address], [facility] 08/25/2023 20:29:43 08/26/19 83220: Manual therapy completed Dayne Rice DPT [address], [place], [address], [facility] 08/25/2023 20:29:43 08/21/19 67859 Therapeutic Exercise (1:1) completed Dayne Rice DPT [address], [place], [address], [facility] 08/21/2023 16:40:57 08/21/19 36795: Manual therapy completed Dayne Rice DPT [address], [place], [address], [facility] 08/19/2023 21:39:23 08/19/19 58288 Therapeutic Exercise (1:1) completed Dayne Rice DPT [address], [place], [address], [facility] 08/16/2023 22:49:36 08/19/19 09627: Manual therapy completed Dayne Rice DPT [address], [place], [address], [place] [facility] 08/16/2023 22:50:08 Imaging Results Imaging Date Name Status LastModified by Organiz atformerly [facility], [facility] Details LastModified Time 05/17/2024 XR, ankle, 3 or more view completed [facility] [address], [place], [address], 05/17/2024 15:05:20 05/17/2024 XR, ankle, 3 or more view completed [facility] [address], [place], [address], 05/17/2024 15:05:22 Procedure Notes None recorded. Medical Equipment None Reported. Allergies No known drug allergies Medications Name Sig Start Date Stop Date Status Note LastModified by Organization Details LastModified Time amoxicillin 500 mg capsule TAKE 2 CAPSULES BY MOUTH EVERY DAY FOR 10 DAYS active Not Available Not Available No t Available ibuprofen 800 mg tablet 12/21 completed Not Available Not Available Not Available benzonatate 200 mg capsule 12/21 completed Not Available Not Available Not Available prednisone 20 mg tablet 12/21 completed Not Available Not Available Not Available clonazepam 0.5 mg tablet TAKE 1 TABLET BY MOUTH TWICE DAILY NEEDED FOR PANIC ATTACKS OR SLEEP active Not Available Not Available No t Available prednisone 5 mg tablet 12/21 completed Not Available Not Available Not Available aspirin 81 mg tablet,anaid yed release 12/21 completed Not Available Not Available Not Available acetaminoph en 500 mg tablet 12/21 completed Not Available Not Available Not Available dextroamphe tamine-amph etamine ER 20 mg 24hr capsule,ext end release TAKE 1 CAPSULE BY MOUTH EVERY DAY active Not Available Not Available No t Available prednisone 5 mg tablets in a dose pack 1 dose pk by oral route. 12/21 completed Not Available Not Available Not Available albuterol sulfate HFA 90 mcg/actuati on aerosol inhaler 12/21 completed Not Available Not Available Not Available fluticasone propionate 50 mcg/actuati on nasal spray,suspe nsion SHAKE LIQUID AND USE 2 SPRAYS IN EACH NOSTRIL EVERY DAY DIRECTED 12/21 completed Not Available Not Available Not Available sertraline 50 mg tablet TAKE 1 TABLET BY MOUTH EVERY DAY active Not Available Not Available No t Available amoxicillin 875 mg-potassiu m clavulanate 125 mg tablet 12/21 completed Not Available Not Available Not Available Adderall 10 mg tablet Take 1 tablet every day by oral route. active Not Available Not Available No t Available oxycodone 5 mg tablet 12/21 completed Not Available Not Available Not Available escitalopra m 10 mg tablet TAKE 1 TABLET BY MOUTH EVERY DAY DIRECTED active Not Available Not Available No t Available oxycodone HCl-oxycodo ne-ASA 12/21 completed Not Available Not Available Not Available GaviLyte-G 236 gram-22.74 gram-6.74 gram-5.86 gram oral solution 12/21 completed Not Available Not Available Not Available Eliquis 5 mg tablet TAKE 1 TABLET BY MOUTH TWICE DAILY active Not Available Not Available No t Available Eliquis DVT-PE Treatment 30-Day Starter 5 mg (74 tablets) in dose pack 12/21 completed Not Available Not Available Not Available Vitals Date Recorded Body height Body mass index (BMI) Body weight Provider Name and Address Organization Details Last Updated DateTime 08/26/2024 187.96 cm 29.5 kg/m2 708373.25 g Shawna Mills [place] - [place] [facility] 08/26/2024 15:31:54 Social History None recorded. Functional Status None recorded. Mental Status None recorded. Family History Nothing Reported. Medical History Condition Response Coronary Artery Disease N Anxiety/Depression N Emphysema N COPD N Pacemaker N Vascular Disease N Gastrointestinal Disease N Autoimmune disease N Orthotics N Arthritis N Blood Clot N Acid Reflux (GERD) N Cancer N Stroke N Rheumatoid Arthritis N Arrhythmia N Fibromyalgia N Allergies/Hayfever N Thyroid Problems N Kidney/Bladder Problems N Anemia N Heart Attack (AL) N Diabetes N Bleeding Disorder N Seizures/Epilepsy N AIDS/HIV N Congestive Heart Failure (CHF) N Asthma N Peripheral Vascular Disease N Sleep Apnea N Hepatitis N Heart Disease N Pulmonary Embolism N Hypertension N Osteoporosis N Past Encounters Encounter ID Performer Location Encounter Start Date Encounter Closed Date Diagnosis/Indication Diagnosis SNOMED-CT Code Diagnosis ICD10 Code Diagnosis Note [id number] [facility] [address] [place] [address] 08/19/2023 12:54:21 08/19/2023 17:49:43 Left Achilles tendinitis 2572188925 57438 M76.62 [id number] Dayne Rice, DPT [facility] [address] [place], [place] [address] 08/21/2023 13:21:17 08/21/2023 15:28:51 Left Achilles tendinitis 6711323075 88299 M76.62 [id number] Dayne Rice DPT [facility] [address] [place], [place] [address] 08/26/2023 13:29:28 08/26/2023 16:19:40 Left Achilles tendinitis 8979326093 12843 M76.62 [id number] Marino Granados MD [facility] [address] [place] [address] 08/29/2023 13:22:29 09/18/2023 12:05:04 Insertional Achilles tendinopathy 825152525 M67.074 [id number] Dayne Rice DPT [facility] [address] [place] [address] 09/02/2023 13:25:46 09/02/2023 15:00:57 Left Achilles tendinitis 6916294808 92064 M76.62 [id number] Dayne Rice, DPT [facility] [address] [place] [address] 09/05/2023 09:23:06 09/05/2023 10:11:52 Left Achilles tendinitis 9873867377 22862 M76.62 [id number] Dayne Rice, DPT [facility] [address] [place] [address] 09/12/2023 13:22:21 09/12/2023 14:13:15 Left Achilles tendinitis 1815414875 83212 M76.62 [id number] Dayne Rice, DPT [facility] [address] [place] [address] 09/16/2023 14:02:51 09/16/2023 15:37:26 Left Achilles tendinitis 9387762797 09183 M76.62 [id number] CARRIE GarciaT [facility] [address] [place] [address] 09/18/2023 14:02:26 09/18/2023 16:40:05 Left Achilles tendinitis 6351794437 49155 M76.62 [id number] CARRIE GarciaT [facility] [address] [place] [address] 10/01/2023 13:31:50 10/01/2023 14:06:16 Left Achilles tendinitis 2802357546 49147 M76.62 [id number] CARRIE GarciaT [facility] [address] [place] [address] 10/03/2023 13:34:26 10/03/2023 14:25:41 Left Achilles tendinitis 7814967889 44160 M76.62 [id number] Dayne Rice DPT [facility] [address] [place] [address] 10/07/2023 13:28:01 10/07/2023 14:13:44 Left Achilles tendinitis 5997116614 91721 M76.62 [id number] CARRIE GarciaT [facility] [address] [place] [address] 10/09/2023 13:31:10 10/09/2023 15:05:41 Left Achilles tendinitis 9548541466 75045 M76.62 [id number] Marino Granados MD [facility] [address] [place] [address] 10/10/2023 15:38:37 11/03/2023 13:33:52 Insertional Achilles tendinopathy 392166962 M67.593 [id number] CARRIE GarciaT [facility] [address] [place] [address] 10/16/2023 15:56:29 10/16/2023 16:50:22 Left Achilles tendinitis 1936535111 16293 M76.62 [id number] Hongshin Dwayne, DPT [facility] [address] [place] [address] 10/21/2023 13:32:52 10/21/2023 14:00:50 Left Achilles tendinitis 3905264807 57084 M76.62 [id number] Marino Granados MD [facility] [address] [place] [address] 10/22/2023 08:31:13 11/13/2023 10:14:43 Insertional Achilles tendinopathy 047463567 M67.946 [id number] Dayne Rice, DPT [facility] [address] [place] [address] 10/23/2023 14:02:10 10/23/2023 15:39:36 Left Achilles tendinitis 6662153762 71980 M76.62 [id number] Dayne Rice DPT [facility] [address] [place] [address] 10/28/2023 13:37:19 10/28/2023 14:05:02 Left Achilles tendinitis 0159078245 25297 M76.62 [id number] Dayne Rice DPT [facility] [address] [place] [address] 11/05/2023 15:13:43 11/05/2023 16:53:48 Left Achilles tendinitis 2409134417 49540 M76.62 [id number] Dayne Rice, DPT [facility] [address] [place] [address] 11/10/2023 12:52:06 11/10/2023 13:32:22 Left Achilles tendinitis 4553871930 66450 M76.62 [id number] Marino Granados MD [facility] [address] [place] [address] 11/12/2023 16:20:44 12/17/2023 13:32:39 Insertional Achilles tendinopathy 629347580 M67.658 [id number] Dayne Rice, DPT [facility] [address] [place] [address] 11/13/2023 13:28:30 11/13/2023 14:05:55 Left Achilles tendinitis 8886237759 52017 M76.62 [id number] CARRIE GarciaT [facility] [address] [place] [address] 11/18/2023 14:57:50 11/18/2023 16:06:11 Left Achilles tendinitis 6098261074 44455 M76.62 [id number] Marino Granados MD [facility] [address] [place] [address] 12/29/2023 10:05:47 01/13/2024 16:11:30 Insertional Achilles tendinopathy 981420976 M67.710 [id number] Marino Granados MD [facility] [address] [place] [address] 04/22/2024 14:29:53 05/11/2024 15:53:25 Insertional Achilles tendinopathy 436213682 M67.130 [id number] CARRIE GarciaT [facility] [address] [place] [address] 04/27/2024 11:04:05 04/27/2024 11:41:53 Disorder of musculoskeletal system 680133 M67.331 [id number] CARRIE GarciaT [facility] [address] [place] [address] 04/30/2024 13:04:13 04/30/2024 13:39:49 Disorder of musculoskeletal system 714450 M67.291 [id number] CARRIE GarciaT [facility] [address] [place] [address] 05/11/2024 14:58:59 05/11/2024 16:36:47 Disorder of musculoskeletal system 297180 M67.589 [id number] EDD AMES PA-C [facility] [address] [place] [address] 05/17/2024 14:50:33 06/11/2024 15:34:26 Insertional Achilles tendinopathy 527803092 M67.922 [id number] Dayne Rice, DPT [facility] [address] [place] [address] 05/18/2024 14:46:46 05/18/2024 15:47:48 Disorder of musculoskeletal system 143152 M67.975 [id number] Dayne Rice DPT [facility] [address] [place] [address] 05/24/2024 14:55:01 05/24/2024 15:52:02 Disorder of musculoskeletal system 012283 M67.825 [id number] Dayne Rice DPT [facility] [address] [place] [address] 06/11/2024 15:24:54 06/11/2024 16:01:25 Disorder of musculoskeletal system 913533 M67.876 [id number] CARRIE GarciaT [facility] [address] [place] [address] 06/14/2024 15:24:10 06/14/2024 16:04:33 Disorder of musculoskeletal system 410248 M67.394 [id number] Dayne Rice DPT [facility] [address] [place] [address] 06/16/2024 15:23:06 06/16/2024 15:51:59 Disorder of musculoskeletal system 238231 M67.015 [id number] CARRIE GarciaT [facility] - [facility] [address] [place] [address] 06/28/2024 15:59:41 06/28/2024 17:07:57 Disorder of musculoskeletal system 728864 M67.278 [id number] Dayne Rice DPT [facility] [address] [place] [address] 07/05/2024 15:18:49 07/05/2024 16:23:38 Disorder of musculoskeletal system 031360 M67.461 [id number] Debbie Salmon PA-C [facility] [address] [place] [address] 08/26/2024 15:27:44 09/14/2024 14:54:48 Left Achilles tendinitis [id number] 08115 M76.62 Health Concerns Section Related Observation LastModified by Organization Detai ls LastModified Time None Recorded Concern Status LastModified by Organization Details LastModified Time None Recorded Advance Directives Directive None Recorded Payers Encounter Date Sequence Insurance Name Policy Number Policy Ashley Covered Member ID Ashley Member ID Guarantor Name 06/14/2024 1 [employer] [id number] Charles Camacho [id number] Charles Camacho 06/16/2024 1 [employer] [id number] Charles Camacho [id number] Donald Doug 06/28/2024 1 [employer] [id number] Charles Camacho [id number] Donald Doug 07/05/2024 1 [employer] [id number] Charles Camacho [id number] Donald Doug 08/26/2024 1 [employer] [id number] Charles Camacho [id number] Charles Camacho Notes Date Note Type Note Provider Name and Address Organization Details Recorded Time 5 text/html Pt reports ankle has been slowly getting better-a little sore due to standing on it all day. Candie Perry, MANAGER OF MERCHANDISING [address], [place], [address], [facility] 06/14/2024 17:57:36 5 text/html Pt reports ankle has been slowly getting better-a little sore due to standing on it all day. Candie Perry, MANAGER OF MERCHANDISING [address], [place], [address], [facility] 06/16/2024 16:44:26 5 text/html Pt reports that he feels like he turned the corner. Pt went [place] walking a lot last week. [place] fine after that. Dayne Rice, DPT [address], [place], [address], [facility] 06/28/2024 18:39:41 5 text/html Patient reports overall feeling improving although still having occasional cramping over his calf.Pains 0/10 at rest. Dayne Rice, DPT [address], [place], [address], [facility] 07/05/2024 19:08:00 5 text/html I am seeing this patient under the supervision of Dr. Marley, who was available but who did not see the patient.Surgery: Left insertional Achilles tendon reconstruction, partial excision calcaneusDOS: 06/04/2023Surgeon: Dr. Gibson: Patient is a pleasant 53-year-old male who presents today in office due to concerns about his left Achilles tendon with increased swelling and soreness. He is over a year out from surgery at this time. Of note his recovery time was affected due to postoperative DVT that was being treated with Eliquis. Patient most recently seen by one of my colleagues who recommended he continue some more physical therapy. He has now completed physical therapy but feels that he has reached a plateau and is not improving. Localizes his residual pain and soreness around the retrocalcaneal bursa region. Reports he feels that he has good flexibility in the calf but still feels tightness in the calf muscle at times. Reports he still getting some swelling, he is seeing vascular soon. He has been compliant with his Eliquis. Patient endorses that the swelling does get better the more he is up and moving around and does come down overnight. He has been utilizing light compression socks.PFMSH, Meds and ROS reviewed, updated and signed by me, and is located in the patient's chart.PHYSICAL EXAMINATION: The patient is well appearing and in no apparent distress. Alert and oriented x 3. On seated examination patient has some edema along the medial and lateral joint line and retrocalcaneal space. Patient is tender to palpation about the retrocalcaneal bursa region. Active range of motion is still somewhat limited in dorsiflexion to about 5 to 10 degrees, plantarflexion inversion eversion within normal limits however patient endorses some discomfort. Manual muscle testing plantarflexion 5/5, dorsiflexion 4/5, inversion eversion 4+/5. No laxity is noted on today exam today. Calf squeeze elicits brisk response in plantarflexion. Calf is supple and nontender.Sensory exam- reports sensation intact to light touch SP/DP/S/S/T distributionsPalpable DP/PT pulses, foot warm and well perfused, appropriate capillary refillCalf is soft, supple, non-tenderPrevious films independently reviewed by myself today: 3 views weightbearing ankle show a stable appearing area of heterotopic bone along the posterior aspect of the ankle similar to findings on previous imaging from a month ago. There is no acute fracture, positional changes noted. No ankle mortise widening noted on review.IMPRESSION: Over 1 year postop left insertional Achilles tendon reconstruction, partial excision calcaneus with increase in swelling and pain, h/o DVT postopPLAN: Discussed the findings and situation with the patient today at length. We discussed potential treatment options at this time. Patient would like to continue exercises at home and follow-up with vascular as scheduled. He would like to monitor things for now and see if things improve. He would like to follow-up with Dr. Granados in a couple of months in case he still has the symptoms. Follow-up was arranged. Follow-up sooner if needed. Patient understands and agrees with this plan. All questions were answered. Speech recognition asp net developer software was used to create portions of this document. An attempt at proofreading has been made to minimize errors. Please call for corrections. Debbie Salmon PA-C [address] [facility] [address], [place], [id number], [facility] 08/26/2024 16:19:15
--- OUTSIDE RECORDS SUMMARY | 2024-09-21 18:49 | XMS_ITS | Data Portability ---
Author Organization [facility], Main Office Address [address] [facility] [address] [place] [address] Care Team Providers Care [employer] Interpreter Name Role Phone TITO HDZ Primary Care Provider [phone] TAMI WORRELL Mud Jack Operator KUSH DAHL Phys. Med. & Rehab JAYDA LOCK Urologist [facility] ([facility] [place]) Orthopedic Surgeon CAT PINEDA Orthopedic Surgeon [facility] Crime Prevention Police Officer [facility] [employer] Officer [facility] VASCULAR Vascular Surgeon [phone] Assessment Encounter Date Assessment Date Assessment LastModified by Organization Details LastModified Time 05/07/2024 05/07/2024 This service was provided using telemedicine. Patient consented to video & audio visit Patient was located in the [facility]. Provider was located in the office. No other persons participated in the telemedicine visit except for the patient unless otherwise indicated here. {{}} Total time of visit was 16 minutes. [email or web address] Not available 05/09/2024 23:05:34 08/27/2024 08/27/2024 This service was provided using telemedicine. Patient consented to video & audio visit Patient was located in the [facility]. Provider was located in the office. No other persons participated in the telemedicine visit except for the patient unless otherwise indicated here. {{}} Total time of visit was 21 minutes. [email or web address] Not available 08/27/2024 15:18:15 Plan of Treatment Reminders Order Date Submit Date Provider Last Modified By Organization Details Last Modified Time Details Appointments FOLLOW UP 1 2024 03:25P M Tito Hdz MD Not available Not available Not available Lab strep group A, DNA, swab 2024 025 [email or web address] In-Office Order, Internal Use Only DO Not Attach Compendium DO Not Attach Compendium, Do Not Delete/merge, [id number] 09/02/2024 15:23:01 streptoco ccus group A, culture, throat 2024 025 [place] [facility] (Centralized Electronic Ordering - All Locations), Patient Can Go To The Location Of Their Choice, [id number] 07/24/2024 08:07:58 lipid panel, serum 2023 024 [place] [facility] (Centralized Electronic Ordering - All Locations), Patient Can Go To The Location Of Their Choice, [address] 06/02/2024 06:07:08 vitamin D, 25-hydrox y, total, serum 2023 024 [place] [facility], [address], [place], [address], 06/02/2024 06:07:09 PSA, total, serum or plasma 2023 024 [place] [facility] (Centralized Electronic Ordering - All Locations), Patient Can Go To The Location Of Their Choice, [id number] 06/02/2024 06:07:08 CMP, serum or plasma 2023 024 [place] [facility] (Centralized Electronic Ordering - All Locations), Patient Can Go To The Location Of Their Choice, [address] 06/02/2024 06:07:07 CBC w/ auto diff 2023 024 [place] [facility] (Centralized Electronic Ordering - All Locations), Patient Can Go To The Location Of Their Choice, [address] 06/02/2024 06:07:06 Referral gastroent erologist referral - Needs colon cancer screening 2024 025 [email or web address] [facility], [address] [facility], [place], [address], 08/27/2024 15:33:[address] referral 2023 024 ROSCOE [facility], [address] [place] [address] Kenny Darden, [place], [address], 06/29/2024 18:29:30 nutrition ist/dieti inessa referral 2023 024 [email or web address] Not available 05/31/2024 13:49:31 Procedures colonosco py screening (PROC) 2024 025 carlos manuel [facility], [address] [facility], [address], [place], [address], 08/27/2024 15:32:52 Surgeries None recorded. Imaging exercise stress test - to rule out arrhythmi a as cause of exertiona l dizziness 2024 025 carlos manuel [facility] (Outt Non-Invasive Cardiology Scheduling), [address] [facility], [place], [address], 09/06/2024 12:01:26 Medication Orders Augmentin 500 mg-125 mg tablet 2024 025 ROSCOE [id number], [address] [place] [address], [id number], 09/16/2024 05:01:29 amoxicill in 500 mg capsule 2024 025 [facility], [address] [place] [address], [id number], 08/27/2024 14:47:04 dextroamp hetamine- amphetami ne ER 20 mg 24hr capsule,e xtend release 2023 024 [facility]79, [address] [place], [place], [id number], 05/31/2024 13:47:51 escitalop becky 10 mg tablet 2023 024 [place] [facility], [address], [place], [place], [id number], 05/31/2024 13:25:44 Patient Targets Encounter Date Encounter Id Patient Goals Patient Target Last Modified By Organization Details Last Modified Time 05/31/2024 [id number] [facility] goal of Excess Body Weight Loss % [...] By Organization Details Last Modified Time 05/07/2024 [id number] depression treatment: care instructions [email or web address] Not available 05/07/2024 15:36:35 05/31/2024 [id number] Prostate Cancer Screening [email or web address] Not available 05/31/2024 [...] of medication. 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 Refer ral for Body mass index 25-29 - overweight Referring Physician: Jason Lux, Internal Medicine, Encounter Date: 05/31/2024 Crime Prevention Police Officer Referral for Hea ring loss Referring Physician: Jason Lux, Internal Medicine, Encounter Date: 05/31/2024 [employer] Land Officer Referral for Screening for malignant neoplasm of colon Needs colon cancer screening Referring Physician: Tito Hdz, Family Medicine, Encounter Date: 08/27/2024 Results Created Date Observation Date Name Description Value Unit Range Abnormal Flag Note LastModifiedBy Organization Detail LastModifiedTime 06/01/20 24 06/01/2024 CBC WITH DIFFE RENTI AL/PL ATELE T WBC 5.8 x10e3 /uL 3.4-10 .8 normal Not Available [facility] ([facility]) [address] [place], [address], 06/02/2024 06:07:06 06/01/2006/01/2024 CBC WITH DIFFE RENTI AL/PL ATELE T RBC 5.35 x10e6 /uL 4.14-5 .80 normal Not Available [facility] ([facility]) [address] [place], [address], 06/02/2024 06:07:06 06/01/2006/01/2024 CBC WITH DIFFE RENTI AL/PL ATELE T hemoglobin 16.0 g/dL 13.0-1 7.7 normal Not Available [facility] ([facility]) [address] [place], [address], 06/02/2024 06:07:06 06/01/20 06/01/2024 CBC WITH DIFFE RENTI AL/PL ATELE T hematocrit 49.7 % 37.5-5 1.0 normal Not Available [facility] ([facility]) [address] [facility], [place], [address], 06/02/2024 06:07:06 06/01/20 24 06/01/2024 CBC WITH DIFFE RENTI AL/PL ATELE T MCV 93 fL 79-97 normal Not Available [facility] ([facility]) [address] [facility], [place], [address], 06/02/2024 06:07:06 06/01/2006/01/2024 CBC WITH DIFFE RENTI AL/PL ATELE T MCH 29.9 pg 26.6-3 3.0 normal Not Available [facility] ([facility]) [address] [facility], [place], [address], 06/02/2024 06:07:06 06/01/20 24 06/01/2024 CBC WITH DIFFE RENTI AL/PL ATELE T MCHC 32.2 g/dL 31.5-3 5.7 normal Not Available [facility] ([facility]) [address] [place], [address], 06/02/2024 06:07:06 06/01/2006/01/2024 CBC WITH DIFFE RENTI AL/PL ATELE T RDW 12.2 % 11.6-1 5.4 Not Available [facility] ([facility]) [address] [place], [address], 06/02/2024 06:07:06 06/01/2006/01/2024 CBC WITH DIFFE RENTI AL/PL ATELE T platelets 231 x10e3 /uL 150-45 0 normal Not Available [facility] ([facility]) [address] [place], [address], 06/02/2024 06:07:06 06/01/2006/01/2024 CBC WITH DIFFE RENTI AL/PL ATELE T neutrophils 53 % not estab. normal Not Available [facility] ([facility]) [address] [facility], [place], [address], 06/02/2024 06:07:06 06/01/20 24 06/01/2024 CBC WITH DIFFE RENTI AL/PL ATELE T lymphs 36 % not estab. normal Not Available [facility] ([facility]) [address] [facility], [place], [address], 06/02/2024 06:07:06 06/01/20 24 06/01/2024 CBC WITH DIFFE RENTI AL/PL ATELE T monocytes 8 % not estab. normal Not Available [facility] ([facility]) [address] [facility], [place], [address], 06/02/2024 06:07:06 06/01/20 24 06/01/2024 CBC WITH DIFFE RENTI AL/PL ATELE T eos 2 % not estab. normal Not Available [facility] ([facility]) [address] [facility], [place], [address], 06/02/2024 06:07:06 06/01/20 24 06/01/2024 CBC WITH DIFFE RENTI AL/PL ATELE T basos 1 % not estab. 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 0 normal Not Available [facility] ([facility]) [address] [facility], [place], [address], 06/02/2024 06:07:06 06/01/20 24 06/01/2024 CBC WITH DIFFE RENTI AL/PL ATELE T lymphs (absolute) 2.1 x10e3 /uL 0.7-3. 1 normal Not Available [facility] ([facility]) [address] [facility], [place], [address], 06/02/2024 06:07:06 06/01/20 24 06/01/2024 CBC WITH DIFFE RENTI AL/PL ATELE T monocytes(ab solute) 0.5 x10e3 /uL 0.1-0. 9 normal Not Available [facility] ([facility]) [address] [facility], [place], [address], 06/02/2024 06:07:06 06/01/20 24 06/01/2024 CBC WITH DIFFE RENTI AL/PL ATELE T eos (absolute) 0.1 x10e3 /uL 0.0-0. 4 normal Not Available [facility] ([facility]) [address] [facility], [place], [address], 06/02/2024 06:07:06 06/01/20 24 06/01/2024 CBC WITH DIFFE RENTI AL/PL ATELE T baso (absolute) 0.1 x10e3 /uL 0.0-0. 2 normal Not Available [facility] ([facility]) [address] [facility], [place], [address], 06/02/2024 06:07:06 06/01/20 24 06/01/2024 CBC WITH DIFFE RENTI AL/PL ATELE T immature granulocytes 0 % not estab. Not Available [facility] ([facility]) [address] [facility], [place], [address], 06/02/2024 06:07:06 06/01/20 24 06/01/2024 CBC WITH DIFFE RENTI AL/PL ATELE T immature grans (abs) 0.0 x10e3 /uL 0.0-0. 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 METAB OLIC PANEL (14) glucose 101 mg/dL 70-99 above high normal Not Available [facility] ([facility]) [address] [facility], [place], [address], 06/02/2024 06:07:07 06/01/20 24 06/01/2024 COMP. METAB OLIC PANEL (14) BUN 13 mg/dL 6-24 normal Not Available [facility] ([facility]) [address] [facility], [place], [address], 06/02/2024 06:07:07 06/01/20 24 06/01/2024 COMP. METAB OLIC PANEL (14) creatinine 1.16 mg/dL 0.76-1 .27 normal Not Available [facility] ([facility]) [address] [facility], [place], [address], 06/02/2024 06:07:07 06/01/20 24 06/01/2024 COMP. METAB OLIC PANEL (14) eGFR 75 mL/mi n/1.7 3 >59 normal Not Available [facility] ([facility]) [address] [place], [address], 06/02/2024 06:07:07 06/01/20 24 06/01/2024 COMP. METAB OLIC PANEL (14) BUN/creatini ne ratio 11 9-20 normal Not Available [facility] ([facility]) [address] [place], [address], 06/02/2024 06:07:07 06/01/20 24 06/01/2024 COMP. METAB OLIC PANEL (14) sodium 142 mmol/ L 134-14 4 normal Not Available [facility] ([facility]) [address] [place], [address], 06/02/2024 06:07:07 06/01/20 24 06/01/2024 COMP. METAB OLIC PANEL (14) potassium 4.2 mmol/ L 3.5-5. 2 normal Not Available [facility] ([facility]) [address], [place], [address], 06/02/2024 06:07:07 06/01/20 24 06/01/2024 COMP. METAB OLIC PANEL (14) chloride 104 mmol/ L 96-106 normal Not Available [facility] ([facility]) [address] [place], [address], 06/02/2024 06:07:07 06/01/20 24 06/01/2024 COMP. METAB OLIC PANEL (14) carbon dioxide, total 24 mmol/ L 20-29 normal Not Available [facility] ([place] [facility]) [address] [place], [address], 06/02/2024 06:07:07 06/01/20 24 06/01/2024 COMP. METAB OLIC PANEL (14) calcium 8.8 mg/dL 8.7-10 .2 normal Not Available [facility] ([facility] [facility]) [address] [place], [address], 06/02/2024 06:07:07 06/01/20 24 06/01/2024 COMP. METAB OLIC PANEL (14) protein, total 6.3 g/dL 6.0-8. 5 normal Not Available [facility] ([facility]) [address] [place], [address], 06/02/2024 06:07:07 06/01/20 24 06/01/2024 COMP. METAB OLIC PANEL (14) albumin 4.2 g/dL 3.8-4. 9 normal Not Available [facility] ([facility]) [address] [place], [address], 06/02/2024 06:07:07 06/01/20 24 06/01/2024 COMP. METAB OLIC PANEL (14) globulin, total 2.1 g/dL 1.5-4. 5 Not Available [facility] ([facility]) [address] [place], [address], 06/02/2024 06:07:07 06/01/20 24 06/01/2024 COMP. METAB OLIC PANEL (14) bilirubin, total 1.0 mg/dL 0.0-1. 2 normal Not Available [facility] ([facility]) [address] [place], [address], 06/02/2024 06:07:07 06/01/20 24 06/01/2024 COMP. METAB OLIC PANEL (14) alkaline phosphatase 74 IU/L 44-121 normal Not Available [facility] ([facility]) [address] [place], [address], 06/02/2024 06:07:07 06/01/20 24 06/01/2024 COMP. METAB OLIC PANEL (14) AST (SGOT) 22 IU/L 0-40 normal Not Available [facility] ([facility]) [address] [place], [address], 06/02/2024 06:07:07 06/01/20 24 06/01/2024 COMP. METAB OLIC PANEL (14) ALT (SGPT) 20 IU/L 0-44 normal Not Available [facility] ([facility]) [address] [facility] [place], [address], 06/02/2024 06:07:07 06/01/20 24 06/01/2024 LIPID PANEL cholesterol, total 178 mg/dL 100-19 9 normal Not Available [facility] ([facility]) [address] [place], [address], 06/02/2024 06:07:08 06/01/20 24 06/01/2024 LIPID PANEL triglyceride s 97 mg/dL 0-149 normal Not Available [facility] ([facility]) [address] [place], [address], 06/02/2024 06:07:08 06/01/20 24 06/01/2024 LIPID PANEL HDL cholesterol 36 mg/dL >39 below low normal Not Available [facility] ([facility]) [address] [place], [address], 06/02/2024 06:07:08 06/01/20 24 06/01/2024 LIPID PANEL VLDL cholesterol joss 18 mg/dL 5-40 Not Available [facility] ([facility]) [address] [place], [address], 06/02/2024 06:07:08 06/01/20 24 06/01/2024 LIPID PANEL LDL chol calc ([facility]) 124 mg/dL 0-99 above high normal Not Available [facility] ([facility]) [address] [place], [address], 06/02/2024 06:07:08 06/01/20 24 06/01/2024 LIPID PANEL LDL calc comment: 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 se. Not Available [facility] ([facility]) [address] [facility], [place], [address], 06/02/2024 06:07:08 06/01/20 24 06/02/2024 VITAM IN [...] IOM (Inst itute of Medic ine). 2009. Dieta ry refer ence intak es for calci um and D. Marline curiel [place]: The Natio nal [facility] Press . 2. Zbigniew begum MF, Marisela ey [place], Juhi off-F errar i MACKENZIE, et al. Evalu ation , treat ment, and preve ntion of vitam in D defic iency : an Endoc rine Socie ty clini joss pract ice guide line. JCEM. 2010; 96(7) :1911 -30. Not Available [facility] ([facility]) [address] [facility], [place], [address], 06/02/2024 06:07:09 07/22/19 25 07/24/2024 BETA STREP GP A CULTU RE beta strep gp A culture POSITI VE abnormal Refer ence Range : Negat larry Penic illin and ampic illin are drugs of choic e for treat ment of beta- hemol ytic strep tococ joss infec tions . Susce ptibi lity testi ng of penic illin s and other beta- lacta m agent s appro makenzie by the FDA for treat ment of beta- hemol ytic strep tococ joss infec tions need not be perfo rmed routi alvin becau se nonsu scept ible isola sudhir are extre dileep rare in any beta- hemol ytic strep tococ cus and have not been repor michelle for Strep tococ cus pyoge pratima (grou p A). (CLSI ) Not Available [facility] ([facility]) [address] [facility], [place], [address], 07/24/2024 08:07:58 09/03/19 25 09/02/2024 strep group A, DNA, swab ID NOW Strep A 2 (rapid molecular test) positi ve Not Available In-Office Order Internal Use Only DO Not Attach Compendium DO Not Attach Compendium, Do Not Delete/merge, [id number] 09/02/2024 15:01:47 04/15/20 24 04/14/2024 US, chest No observ ation record ed. [email or web address] Not Available 05/07 15:31:13 Result Notes None recorded. Problems Name Problem SNOMED Code Status Onset Date Resolution Date Notes Provider Name and Address Organization Details Recorded Time Vertigo 383697170 Completed 08/14/2016 Denita Dong [facility] 7 10:40:21 History of Lyme disease 504822185 Completed 07/13/2022 MISSY Kincaid, [facility] 3 09:15:53 Body mass index 25-29 - overweigh t 600971895 Completed 06/04/2018 Tito Hdz MD [address], [place], [address], [facility] 8 10:03:27 Thyroid nodule 922037588 Completed 01/17/2016 Tito Hdz MD [address], [place], [address], [facility] 6 06:06:56 Tinnitus 75053613 Completed 201508/14/2016 [facility] 7 10:41:15 Acute sinusitis 09506283 Completed 201605/30/2017 Tito Hdz MD [address], [place], [address], [facility] 7 15:32:08 Chronic sinusitis 71385883 Completed 201606/04/2018 Tito Hdz MD [address], [place], [address], [facility] 8 10:03:41 Adult health examinati on Completed 201605/30/2017 Tito Hdz MD [address], [place], [address], [facility] 7 16:01:53 Knee pain Completed 201805/31/2019 Tito Hdz MD [address], [place], [address], [facility] 9 10:01:15 Osteoarth ritis of right knee joint 721249077260 100 Active 2018 Tito Hdz MD [address], [place], [address], [facility] 9 07:02:46 Sprain of posterior cruciate ligament of knee 947718857 Completed 201806/01/2020 Tito Hdz MD [address], [place], [address], [facility] 0 10:22:03 Chondroma lacia of patella 54699988 Completed 201806/01/2020 Tito Hdz MD [address], [place], [address], [facility] 0 10:22:34 Hearing loss 09699060 Active 2018 Tito Hdz MD [address] [facility] [address], [place], [address], [facility] 9 10:03:02 Bilateral tinnitus 562424791017 2 Active 2018 Tito Hdz MD [address], [place], [address], [facility] 9 10:03:10 Obesity 937940335 Completed 201806/01/2020 Tito Hdz MD [address], [place], [address], [facility] 0 10:20:22 Family history of Cardiovas cular disease 734746970 Active 2019 Tito Hdz MD [address], [place], [address], [facility] 0 10:30:03 Adjustmen t disorder with depressed mood 50118541 Completed 201905/09/2024 Tito Hdz MD [address], [place], [address], [facility] 4 23:21:00 Achilles tendiniti s 13076246 Completed 202006/13/2022 Tito Hdz MD [address], [place], [address], [facility] 3 16:08:11 Calcaneal spur 93007109 Active 2020 Tito Hdz MD [address] [facility] [address], [place], [address], [facility] 1 15:52:22 COVID-19 644855513 Completed 202106/13/2022 Tito Hdz MD [address] [facility] [address], [place], [address], [facility] 3 16:00:26 Sensorine ural hearing loss 38450313 Active 2021 Tito Hdz MD [address] [facility] [address], [place], [address], [facility] 2 19:37:34 Attention deficit hyperacti vity disorder, predomina ntly inattenti ve type 02575104 Active 2022 Tito Hdz MD [address] [facility] [address], [place], [address], [facility] 3 13:36:04 Diaphragm atic eventrati on 33611744 Active 2022 Tito Hdz MD [address], [place], [address], [facility] 3 10:19:46 Left Achilles tendiniti s 711019788183 102 Active 2022 Tito Hdz MD [address] [facility] [address], [place], [address], [facility] 3 10:01:26 Impaired fasting glycemia 881216686 Active 2023 Tito Hdz MD [address] [facility] [address], [place], [address], [facility] 4 06:32:35 Acute deep venous thrombosi s of left lower extremity 631409063298 104 Active 2023 Tito Hdz MD [address] [facility] [address], [place], [address], [facility] 4 22:39:54 Umbilical hernia 043680689 Active 2023 Tito Hdz MD [address] [facility] [address], [place], [address], [facility] 4 09:18:14 Moderate major depressio n, single episode 13067449 Active 2023 Tito Hdz MD [address] [facility] [address], [place], [address], [facility] 4 15:49:23 Problem Notes None recorded. Procedures Surgical History Date Name Laterality Status Provider Name and Address Organization Details Recorded Time 01/07/20 24 repair of umbilical hernia completed Tito Hdz MD [address] [address], [place], [address], [facility] 01/16/2024 21:31:35 06/04/20 23 repair of tendo achilles completed [facility] 07/09/2023 14:14:47 02/08/20 22 tooth extraction completed Anali molina [facility] 09/09/2023 13:19:42 11/23/19 20 vasectomy completed Tito Hdz MD [address], [address], [facility] 11/26/2019 12:39:28 06/04/20 18 Cerumen Removal completed Tito Hdz MD [address] [address], [place], [address], [facility] 06/04/2018 10:24:16 05/11/20 18 Oral surgery procedure completed Dionne Stewart MA [facility] 06/04/2018 09:40:01 11/27/18 71 Circumcision completed Pebbles Barros MA [facility] 06/04/2021 08:46:28 Oral surgery procedure completed Chana Krishnan [facility] 06/13/2022 15:40:35 Imaging Results Imaging Date Name Status LastModified by Organiz ation Details LastModified Time 04/14/2024 US, chest completed [email or web address] Information no t available 05/07/2024 15:31:13 Procedure Notes None recorded. Medical Equipment None Reported. Allergies Allergen ID Allergen Name Allergen Category Reaction Reaction Severity Criticality Documentation Date Start Date Code Code System Note Provider Name and Address Organization Details Recorded Time 83436 sertralin e medicatio n abdominal pain diarrhea Not available Not available Not available 04/15/2024 61785 RxNorm MISSY Romo, [facility] 11:23:14 Medications Name Sig Start Date Stop Date Status Note LastModified by Organization Details LastModified Time amoxicilli n 500 mg capsule TAKE 2 CAPSULES BY MOUTH EVERY DAY FOR 10 DAYS 08/27 completed Not Available Not Available Not [...] DAILY NEEDED FOR PANIC ATTACKS OR SLEEP 07/22 completed Not Available Not Available Not Available prednisone 5 mg tablet 12/08 completed [...] completed Not Available Not Available Not Available Augmentin 500 mg-125 mg tablet Take 1 tablet every 12 hours by oral route for 7 days. 09/16 completed Not Available Not Available Not Available [...] TAKE 1 TABLET BY MOUTH TWICE DAILY 2024 active Not Available Not Available Not Avai lable Eliquis DVT-PE Treatment 30-Day Starter 5 mg [...] Updated DateTime 4 185.42 cm 29.9 kg/m2 055399. 68 g 98 % 98 % 78 /min 98.7 [degF] 134 mm[Hg] 77 mm[Hg] Alberta Mena MA [facility] 4 12:59:28 Date Recorded Body height Body mass index (BMI) Body weight Heart rate Oxygen saturation Oxygen saturation in Arterial blood by Pulse oximetry Body temperature Systolic blood pressure Diastolic blood pressure Provider Name and Address Organization Details Last Updated DateTime 5 185.42 cm 29.7 kg/m2 009122. 28 g 101 /min 96 % 96 % 99.4 [degF] 126 mm[Hg] 87 mm[Hg] Chana Krishnan MA [facility] 5 09:40:27 Date Recorded Body height Body temperature Provider N roxane and Address Organization Details Last Updated DateTime 08/27/2024 185.42 cm 99.1 [degF] Susanna Salomon LPN [facility] 08/27/2024 14:46:33 Date Recorded Body height Body mass index (BMI) Body weight Oxygen saturation Oxygen saturation in Arterial blood by Pulse oximetry Heart rate Body temperature Systolic blood pressure Diastolic blood pressure Provider Name and Address Organization Details Last Updated DateTime 5 185.42 cm 30.1 kg/m2 242722. 06 g 98 % 98 % 103 /min 98.5 [degF] 117 mm[Hg] 77 mm[Hg] Alberta Mena MA [facility] 5 15:09:56 Social History Question Answer Notes LastModified by Organizat ion Details LastModified Time Tobacco Smoking Status Never Smoker Not Available [employer] 04/11/2020 03:36:41 Do You Have An Advance Directive? Yes HCP- -Sharonaimelda de luna Information not available 07/09/2023 What Is Your Level Of Alcohol Consumption? Occasional [id number] Information not available 04/11/2020 Is Blood Transfusion Acceptable In An Emergency? Yes [id number] Information not available 04/11/2020 What Is Your Level Of Caffeine Consumption? None Decaf Information not available 07/09/2023 How Much Tobacco Do You Chew? None [id number] Information not available 04/11/2020 Are You Currently Employed? Yes [employer] [facility] Information not available 06/13/2022 What Type Of Diet Are You Following? VEGETARIAN [id number] Information not available 04/11/2020 Which Illicit Or Recreational Drugs Have You Used? None [id number] Information not available 04/11/2020 Do You Or Have You Ever Used E-cigarettes Or Vape? 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 05/31/2024 [email or web address] Information not available 05/31/2024 How Many Children Do You Have? 3 [id number] Information not available 04/11/2020 Do You Use [...] Age Did You Start Smoking Tobacco? 1 [id number] Information not available 04/11/2020 Are You Passively Exposed To Smoke? No Information not available 12/27/2015 Do You Or Have You Ever Used Smokeless Tobacco? Never Used Smokeless Tobacco [id number] Information not available 04/11/2020 How Much Tobacco Do You Smoke? No [id number] Information not available 04/11/2020 Do You Use Any Illicit Or Recreational Drugs? No Information not available 07/09/2023 Do You Use Sunscreen Routinely? Yes [id number] Information not available 04/11/2020 How Many Years Have You Smoked Tobacco? 0 [id number] Information not available 04/11/2020 Do You Or Have You Ever Used Any Other Forms Of Tobacco Or Nicotine? No Information not available 07/09/2023 Sex: Unknown Functional Status Question Answer Note LastModified by Organizat ion Details LastModified Time Are you able to walk? [email or web address] Information not available 07/09/2023 Are you able to care for yourself? Yes [id number] Information not available 04/11/2020 What is your exercise level? Occasional 07/09/23 upper strength exercises due to foot surgery [email or web address] Information not available 07/09/2023 Mental Status None [...] MDCK, quadrivalent, preservative 03/03/20 20 [facility] 08:46:48 COVID-19 vaccine, vector-nr, rS-Ad26, PF, 0.5 mL 08/16/19 21 [facility] 08:46:48 COVID-19, mRNA, LNP-S, PF, 30 mcg/0.3 mL dose 04/01/20 21 completed MISSY Kincaid, [facility] 08/27/2022 15:29:55 Tdap 12/27/19 16 [facility]13/2022 15:28:54 COVID-19, mRNA, LNP-S, bivalent, PF, 50 mcg/0.5 mL or 25mcg/0.25 mL dose 05/26/20 22 completed MISSY Bowling, [facility] 06/13/2022 15:28:54 Influenza, MDCK, quadrivalent, PF 05/26/20 22 [facility] 10:24:18 Influenza, split virus, quadrivalent, PF 10/24/20 21 completed MISSY Kincaid, [facility] 08/27/2022 15:29:55 Tdap 10/15/19 24 completed MISSY Mcdonald, [facility] 10/20/2023 15:37:28 COVID-19, mRNA, LNP-S, PF, 50 mcg/0.5 mL 07/07/19 25 completed MISSY Bowling, [facility] 07/22/2024 09:33:34 Influenza, split virus, quadrivalent, PF 05/30/20 17 cancelled patient objection Not Available [facility] 06/26/2019 02:22:13 Influenza, split virus, quadrivalent, PF 06/04/20 18 cancelled patient objection Not Available [facility] 06/26/2019 02:22:15 Influenza, split virus, trivalent, PF 04/15/20 24 completed MISSY Bashir, [facility] 04/15/2024 12:24:53 Past Encounters Encounter ID Performer Location Encounter Start Date Encounter Closed Date Diagnosis/Indication Diagnosis SNOMED-CT Code Diagnosis ICD10 Code Diagnosis Note [id number] Richard Moscoso MD Main Office [address] [address] 08/22/2015 15:16:22 08/22/2015 16:48:14 Vertigo 518699429 R42 seen c Dr. Moscoso - no rec. meclizine since dizziness is episodic and meclizine is sedating [id number] Tito Hdz MD Main Office [address] [address] 12/27/2015 14:57:45 12/27/2015 16:20:20 Adult health examination 396255830 Z00.01 Immunizati on status updated, Flu advised in the Fall. Regular dental and ophtho care advised as well as seat belt and sunscreen use. Distracted driving discussed. Advance directives in place. Body mass index 25-29 - overweight 185668437 E66.3 Vertigo 694601228 R42 Persistent issue without response to vestibular therapy. Will refer to ENT for further eval in light of comorbid tinnitus and hearing loss. Administra tion of diphtheria, pertussis, and tetanus vaccine 792237330 Z23 Thyroid nodule 624623612 E04.1 Will see if u/s confirms exam findings. Evaluate further depending on test results. [id number] Tito Hdz MD Main Office [address] [address] [place] [address] 04/04/2016 15:14:50 04/04/2016 16:21:59 Tinnitus 00969775 H93.13 Constellat ion of symptoms suggestive to possible Meniere's disease but ENT eval did not corroborat e this. Will ask neuro for opinion. Dizziness 634144295 R42 s/p negative ENT eval. Symptoms aren't consistent ly related to exertion and with normal ECG cardiac etiology seems unlikely. Will ask neuro for input and check echo to rule out structural heart disease. [id number] Tito Hdz MD Main Office [address] [place] [address] 05/23/2016 15:24:13 05/23/2016 16:15:29 Vertigo 287745070 R42 Await neuro evaluation . Cough 90152744 R05 Sound post infectious likely viral inflammati on related. If xray abnormal will cover with abx. Otherwise will follow after a short course of prednisone . Wheezing 60939014 R06.2 Pt advised of common/ser ious potential side effects and to call with any problems. [id number] Eleanor Martinez Main Office [address] [place] [address] 08/06/2016 15:57:21 08/06/2016 16:25:25 Acute sinusitis 74641950 J01.90 Continue and complete Abx. Start Fluticason e and Nasal saline solution BID. Medrol dose pack as directed. F/u as needed. [id number] Tito Hdz MD Main Office [address] [address] [place] [address] 08/14/2016 10:23:20 08/14/2016 11:32:01 Recurrent sinusitis 962797721 J32.9 25 minute office visit with greater than 50% of the visit face-to-fa ce with the patient and/or family providing counseling and/or coordinati on of care. Impacted cerumen 5431925 6 H61.21 [id number] Tito Hdz MD Main Office [address] [address] [place] [address] 11/29/2016 09:57:27 11/29/2016 11:02:43 Chronic sinusitis 85449215 J32.9 Will hold off on po abx/steroi ds unless CT confirms sinusitis. Refer to ENT if anatomical abnormalit ies are seen. To allergy if just persistent sinusitis. [id number] Tito Hdz MD Main Office [address] [address] [place] [address] 05/30/2017 15:06:12 05/30/2017 15:58:13 Needs influenza immunization 401051329 Z23 Adult heal th examination 369291652 Z00.01 Immunizati on status updated, Flu declined. Regular dental and ophtho care advised as well as seat belt and sunscreen use. Distracted driving discussed. Advance directives in place. Chronic sinusitis 596963 00 J32.9 Will hold off on po abx/steroi ds unless symptoms don't improve or second sickening occurs. Body mass index 25-29 - overweight 854099215 E66.3 Z68.25 [id number] Forest Bradshaw MD Main Office [address] [address] [place] [address] 01/28/2018 16:38:40 01/28/2018 17:17:47 Patient encounter status 343561519 Z30.09 Acute back pain with sciatica 554243240 M54.42 This is improving. He will do exercises and will call if there is an exacerbati on. [id number] Tito Hdz MD Main Office [address] [address] [place] [address] 03/10/2018 15:30:14 03/10/2018 16:29:09 Atypical pneumonia 712340783 J18.9 Constellat ion of symptoms and exam findings lead me to suspect an atypical bacterial process. CXR if symptoms persist/wo rsen. Wheezing 60125291 R06.2 Tolerated prednisone in the past. Pt advised of common/ser ious potential side effects and to call with any problems. [id number] Dionne Stewart MA Main Office [address] [address] [place] [address] 06/04/2018 09:10:38 06/04/2018 10:26:28 Adult health examination 642419067 Z00.00 Immunizati on status ut, Flu declined. Screening utd based on risk factors. Regular dental and ophtho care advised as well as seat belt and sunscreen use. Distracted driving discussed. Advance directives in place. Needs infl uenza immunization 570443976 Z23 Obesity 119474508 E66.9 Z68.30 Impacted c erumen of bilateral ears 2265977808 530094 H61.23 Asymmetric al hearing loss 761822632 H91.92 Had a hearing screen in 2016 which confirmed this. Will gauge how he feels after lavage and call for f/u referral if worse. [id number] Tito Hdz MD Main Office [address] [address] [place] [address] 06/30/2018 12:41:08 06/30/2018 13:19:38 Low back strain 360256754 S39.012A Likely muscle strain/par aspinal muscle spasm. Good hydration and heat/cold compresses advised. Will contiue OTC NSAIDs (Proper ibuprofen dosing discussed) . Call inb/worse or if additional symptoms develop. [id number] Tito Hdz MD Main Office [address] [address] [place] [address] 12/24/2018 09:52:40 12/24/2018 10:49:36 Plantar fasciitis 786127233 M72.2 Improved shoe comfort/ar ch support advised along with home PT. Will try formal PT if persistent /worse. Pain in right knee 41821 15037 94472 M25.561 c/w patellar tendinitis . Try brace/NSAI D and PT. Call inb/worse. [id number] Tito Hdz MD Main Office [address] [address] [place] [address] 05/31/2019 09:22:21 05/31/2019 10:32:36 Adult health examination 116417645 Z00.00 Immunizati on status utd, flu declined. Screening utd based on risk factors. Regular dental and ophtho care advised as well as seat belt and sunscreen use. Distracted driving discussed. Advance directives in place. Obesity 430564375 E66.9 Z68.30 Hearing loss 11457651 H9 1.92 [id number] Tito Hdz MD Main Office [address] [address] [facility] [place] [address] 07/13/2019 10:56:53 07/13/2019 11:55:25 Right Achilles tendinitis 6773629050 06166 M76.61 OTC orthotic advised as well as home PT while waiting to get appt for formal PT/ortho. Call inb/worse or if appointmen ts don't fall into place. [id number] Tito Hdz MD Main Office [address] [place] [address] 06/01/2020 09:28:43 06/01/2020 10:47:38 Adult health examination 566525323 Z00.00 Immunizati on status utd, flu declined. Screening utd based on risk factors. Regular dental and ophtho care advised as well as seat belt and sunscreen use. Distracted driving discussed. Advance directives in place. Body mass index 25-29 - overweight 118085728 E66.3 Z68.29 Right Achi lles tendinitis 7121375894 57739 M76.61 Chronic issue, possibly stemming from injury as a child. Will schedule appt with podiatry. Screening for malignant neoplasm of colon 843308892 Z12.11 Family his tory of Cardiovascular disease 389539175 Z82.49 Recently tracked down his mother and obtained family history from her side. Males with young CVD. Adjustment disorder with depressed mood 99995073 F43.21 Coping fairly well. 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 Screening for malignant neoplasm of prostate 017616316 Z12.5 [id number] Jason Lux PA-C Main Office [address] [address] [place] [address] 06/04/2021 08:42:16 06/04/2021 10:34:32 Adult health examination 239013934 Z00.00 Hyperbilirubinemia 19967 006 E80.6 Screening for cardiovascular system disease 004798922 Z13.6 Benign pro static hyperplasia without outflow obstruction 342479883 N40.0 Screening for malignant neoplasm of colon 956044036 Z12.11 Body mass index 30+ - obesity 114727746 E66.9 Z68.30 Varicella vaccination 68 339448 Z23 Hepatitis C screening 41 8701002 Z11.59 Decreased hearing 962826 001 H91.92 Impacted c erumen in right ear 0903144074 269993 H61.21 [id number] Amara Lux PA-C [facility] [address] [facility] [address] [facility] [place] [address] 09/17/2021 10:56:10 09/17/2021 15:36:28 COVID-19 296352863 U07.1 [id number] Tito Hdz MD Main Office [address] [facility] [address] [place] [address] 06/13/2022 15:18:34 06/13/2022 16:27:48 Adult health examination 413507464 Z00.00 Immunizati on status utd. Will screen based on risk factors. Regular dental and ophtho care advised as well as seat belt and sunscreen use. Distracted driving discussed. Advance directives in place. Screening for malignant neoplasm of colon 770267862 Z12.11 Did not reschedule previously arranged appt at [facility] after they cancelled on him. Issue centered around him starting a new job. Will call them to reschedule katia. Advised to let me know if there are any issues rescheduli ng. Nocturia 322222840 R35.1 Adjustment disorder with depressed mood 93290403 F43.21 Symptoms a mild/non limiting. Not sure that his attention issues are related to this. Disturbanc e of attention 46541331 R41.840 Was on stimulant in the past, using caffeine to address this. Will revisit stimulmant therpay and monitor/ad just medication dose/type depending on response. Sensorineu ral hearing loss 58431826 H90.5 Recently outfitted with assist devices. Body mass index 30+ - obesity 444738136 Z68.30 E66.9 Total bili glynn above reference range 3532417986 68388 R17 Will reassess. Most likely Edis's Attention deficit hyperactivity disorder, predominantly inattentive type 97527011 F90.0 Varicella vaccination 68 507093 Z23 Screening for cardiovascular system disease 043727836 Z13.6 Based on comorbidit ies, routine screening is warranted. [id number] ALEXANDER RUSHING MD Main Office [address] [facility] [address] [place] [address] 07/13/2022 09:16:39 07/13/2022 09:38:41 Acute bronchitis 03530762 J20.9 - started on 07/09- at this [...] use enforced. - return precaution s given [id number] Tito Hdz MD [address] [address] [place] [address] 07/19/2022 12:32:21 07/19/2022 14:18:13 Pneumonia 049392396 J18.9 Suspect atypical bacterial pneumonia. Will cover accordingl y and see if extended steroid taper helps with cough. [id number] Tito Hdz MD [address] [address] [place] [address] 07/26/2022 12:52:18 07/26/2022 13:50:48 Attention deficit hyperactivity disorder, predominantly inattentive type 99317994 F90.0 Tolerating treatment well for now. Will reassess in 3-4 weeks after getting off of prednisone and using it more consistent ly. Continue current dose for now. [id number] Jason Lux PA-C [address] [address] [place] [address] 08/27/2022 14:27:34 08/27/2022 16:43:30 Attention deficit hyperactivity disorder, predominantly inattentive type 64944444 F90.0 tolerating med, very helpful in [employer] - cont as dir Pneumonia 112161772 J18. 9 resolved p abx and pred taper [id number] Jason Lux PA-C Main Office [address] [facility] [address] [place] [address] 04/10/2023 15:00:26 04/10/2023 15:35:50 Left Achilles tendinitis 9069294665 70506 M76.62 seen by automation operator in past, had PT recently, does HEP - persists - will get ortho eval, ? likely needs sx [id number] Jason Lux PA-C Main Office [address] [facility] [address] [place] [address] 07/09/2023 13:49:21 07/09/2023 15:26:19 Adult health examination 216785548 Z00.00 Screening for malignant neoplasm of colon 055274329 Z12.11 Left Achil les tendinitis 0795419453 48521 M76.62 seen by automation operator in past, had PT recently, does HEP - persists - will get ortho eval, ? likely needs sx 1.24 - had sx, wearing boot, pending begin PT, cont f/u c ortho 2.9.24 Cough 52462763 R05.9 x few wks, negative home covid test x 2h/o walking pna - feels similarc/o chest>head congestion no sob at rest, but some doeno wheezing, f/cprn zabrina, nyquil - contsee belowcheck cxr - rx c abx if + Mixed hyperlipidemia 267 492385 E78.2 Cholestero l levels are normal except for a low HDL. This is best addressed with a high plant fiber, low saturated fat diet. 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 Persistent cough 9939280 02 R05.3 Benzonatat e has been helping so we will continue this. [id number] Tito Hdz MD Main Office [address] [facility] [address] [place] [address] 09/09/2023 12:49:19 09/09/2023 14:01:25 Acute deep venous thrombosis of left lower extremity 3231876122 78226 I82.402 Provoked post operative with to other obvious risk factors. With unclear family history will confirm improvemen t/resoluti on with d-dimer and doppler in 3 months and if reassuring d/c apixiban. If persistent or recurrent will need to consider hypercoagu lable w/u and heme or vascular consultati on. [id number] Eleanor Martinez Main Office [address] [address] [place] [address] 10/20/2023 15:28:57 10/20/2023 15:58:38 Facial laceration 758841941 S01.81XA right forehead laceration Accidental ly struck by or against stationary object 344930309 W22.8XXA [id number] Tito Hdz MD Main Office [address] [place] [address] [place] [address] 12/09/2023 11:26:45 12/09/2023 12:11:25 Acute deep venous thrombosis of left lower extremity 9518770547 80799 I82.402 Provoked post operative with to other obvious risk factors. With unclear family history this makes a hypercoagu lable w/u potentiall y indicated. Will await vascular consult and continue anticoagul ation until then. Umbilical mass 190705598 R19.05 ? hernia vs diastasis recti. Will see what u/s shows. Attention deficit hyperactivity disorder, predominantly inattentive type 26159284 F90.0 Tolerating treatment and responding well to stimulant therapy for now. [id number] Tito Hdz MD Main Office [address] [place] [address] 03/09/2024 14:42:04 03/09/2024 15:31:46 Acute deep venous thrombosis of left lower extremity 7664566743 64796 I82.402 Provoked post operative with to other obvious risk factors. With unclear family history this makes a hypercoagu lable w/u potentiall y indicated. Will await repeat doppler as well as vascular consult f/u and continue anticoagul ation until then. Attention deficit hyperactivity disorder, predominantly inattentive type 40877076 F90.0 Tolerating treatment and responding well to stimulant therapy. Needs infl uenza immunization 532546104 Z23 PATIENT WILL RECEIVE FLU VACCINE AT LATER DATE [id number] Tito Hdz MD [facility] [address] [facility] [address] [facility] [place] [address] 04/09/2024 14:51:53 04/09/2024 16:30:31 Moderate major depression, single episode 66341441 F32.1 Significan tly limiting symptoms despite undergoing therapy. Willing to try SSRI and will go with rx that his children seem to tolerate. Understand s potential side effects and to be patient with time to take effect. Given severity of symptoms will try 50mg dosing to start. May need to adjust depending on tolerance and symptom response. Panic disorder 448726425 F41.0 Generalize d anxiety disorder 47942039 F41.1 Advised of common/ser ious potential side effects and not to mix with alcohol, ok to use for both panic attacks and sleep. [id number] KIMBERLY TSE Main Office [address] [facility] [address] [facility] [place] [address] 04/15/2024 11:07:45 04/15/2024 11:43:12 Chest pain 26392487 R07.9 reviewed hospital documentat ion-was evaluated at [facility] on 04/14 for chest pain>ekg, chest xray, labwork was unremarkab le-troponi n of 6, symptoms resolved-s caryn discharge, has not experience d cardiac symptoms Needs infl uenza immunization 627036369 Z23 19 YEARS AND OLDER ONLY Moderate m ajor depression, single episode 53101213 F32.1 -stopped sertraline due to AE of abdominal pain and diarrhea>s ymptoms resolved after stopping medication -will trial escitalopr am 10mg and has f/u with [facility] on 05/07 [id number] Tito Hdz MD [facility] [address] [facility] [address] [place] [address] 05/07/2024 14:29:22 05/10/2024 14:09:10 Moderate major depression, single episode 62212670 F32.1 Intolerant to sertraline , symptoms responding to escitalopr am and stressor mitigation . Will continue current dose for now and titrate as indicated. Attention deficit hyperactivity disorder, predominantly inattentive type 52987768 F90.0 Tolerating treatment and responding well to stimulant therapy. 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 likely needs sx 1.24 - had sx, wearing boot, pending begin PT, cont f/u c ortho 2.9.24 12.24 - pt resumed PT, cont f/u c ortho Mixed hyperlipidemia 267 760001 E78.2 Cholestero l levels are normal except for a low HDL. This is best addressed with a high plant fiber, low saturated fat diet and increase aerobic ex. 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 12.24 - pt requested refill Body mass index 25-29 - overweight [id number] E66.3 Z68.29 Nocturia [id number] R35.1 Vitamin D deficiency 347 70195 E55.9 Acute deep venous thrombosis of left lower extremity [id number] 10620 I82.402 cont AC as dir, cont f/u c vasc 3.25 & 4.25 Itching of skin 17344436 0 L29.9 cont moist lotion to LLE, but consider prn zyrtec Hearing loss 56480205 H9 1.92 pt requested eval Single epi sode of major depression in full remission 21612282 F32.5 carmina/phq scores sig lower off med x 3 wks (took self off med) - feels sig better, family situation betterrare use of prn benzo [id number] Tito Hdz MD Main Office [address] [facility] [address] [facility] [place] [address] 07/22/2024 09:22:45 07/22/2024 10:30:08 Acute pharyngitis [id number] J02.9 Supportive /symptomat ic treat ment advised. Fever 839033475 R50.9 OTC antipyreti c therapy advised. Streptococ joss sore throat 42787824 J02.0 Positive in office testing. Will cover with amox. Call inb/worse or symptoms recure after completing therapy. [id number] Eleanor Martinez [facility] [address] [facility] [address] [facility] [place] [address] 08/27/2024 12:45:28 08/27/2024 15:28:37 Family history of Cardiovascular disease [id number] Z82.49 Recently tracked down his mother and obtained family history from her side. Males with young CVD. Exertional dizziness 103 127736 R42 Will screen for exertional dysrhythmi a. Consider echocardio gram depending on results and is symptoms continue. Screening for malignant neoplasm of colon 018964433 Z12.11 Has not heard from [facility]. Will reinvigora te referral. Direct to [facility] if this does not work. Single epi sode of major depression in full remission 77649299 F32.5 Intolerant to sertraline and escitalopr am. Symptoms resolved with stressor mitigation . Will continue current dose for now and titrate as indicated. Attention deficit hyperactivity disorder, predominantly inattentive type 97342844 F90.0 Tolerating treatment and responding well to stimulant therapy. Will continue current regimen. [id number] ALEXANDER RUSHING MD Main Office [address] [facility] [address] [place] [address] 09/02/2024 14:47:20 09/02/2024 15:29:32 Acute pharyngitis [id number] J02.9 - CENTOR score of 2- rapid strept testing was positive- has patient recently had an infection in 07/22/2024 decided to chose stronger antibiotic such as augmentin BID for 7 days instead of repeating amoxicilli n- Tylenol OTC, not to exceed package insert for pain or fever q4-6h advised prn. Counselled on not exceeding more than 3g/day. - Throat Lozenges otc prn for sore throat - saltwater gargle - adequate hydration enforced - return precaution s advised Health Concerns Section Related Observation LastModified by Organization Detai ls LastModified Time None Recorded Concern Status LastModified by Organization Details LastModified Time None Recorded Advance Directives Directive Y: HCP- -Sharona Payers Encounter Date Sequence Insurance Name Policy Number Policy Ashley Covered Member ID Ashley Member ID Guarantor Name 05/07/2024 1 [employer] [id number] Donald Camacho [id number] Donald Doug 05/31/2024 1 [employer] [id number] Donald Camacho [id number] Donald Doug 07/22/2024 1 [employer] [id number] Donald Camacho [id number] Donald Doug 08/27/2024 1 [employer] [id number] Donald Camacho [id number] Donald Doug 09/02/2024 1 [employer] [id number] Donald Camacho [id number] Charles Camacho Notes Date Note Type Note Provider Name and Address Organization Details Recorded Time 05/07/2024 text/html Anxiety/Depressi onRepo rted bypatient.Quality:symp toms improved Severity:denies suicidal ideations;unable to maintain relationships [...] No recurrence since. Tito Hdz MD [address] [facility] [address], [place], [address], [facility] [place] 05/09/2024 23:22:00 05/31/2024 text/html here for annual pe. Jason Lux PA-C [address] [facility] [address], [place], [address], [facility] [place] 05/31/2024 13:52:16 07/22/2024 text/html Throat PainRepor michelle bypatient.Location:dereje ateralUpper Respiratory SymptomsReported bypatient.Location:hea d; throat Quality:sharp throat pain;congested Severity:mild Context:no sick contacts; no foreign travel; non-smoker Tito Hdz MD [address] [facility] [address], [place], [address], [facility] [place] 08/03/2024 07:32:59 08/27/2024 text/html Anxiety/Depressi onRepo rted bypatient.Quality:symp toms improved Severity:denies suicidal ideations; able to maintain relationships; does not interfere with activities of daily living Duration:symptoms lasting over 2 weeks; stablizing Context:no major life stressors Associated Symptoms:denies homicidal ideations; mood goodNotes:Having a significant amount of increased stress in his relationship with Sharona and others. Has a long established polyamorous relationship with her, Jenna and Jonathan, but has met someone new and this is creating strife.Since last visit he has stopped escitalopram and currently only using mixed amphetamine salt for ADD symptoms intermittently with good effect.DizzinessReport ed bypatient.Quality:symp toms worse during the day; lightheadedness Severity:some effect on daily activities;avoiding exercise Duration:intermittent episodes lasting:; lasts <5 minutes Onset/Timing:actual date of onset: (2015) Context:non-smoker;occ urs with exertion Aggravating factors:exercise Associated Symptoms:no double vision; no slurred speech; no blurred visionNotes:Reports that this is a persistent issue but not as present since he has not been able to exercise with ankle issues/DVT. Discussed in the past and had an MRI of IAC which was negative. Saw something on POTS and is wondering if that might be the issue. There is a family hx of CAD. Eleanor morris, [facility] 09/08/2024 16:11:13 09/02/2024 text/html Throat PainRepor michelle bypatient.Location:dereje ateral (worse on left) Quality:sore Severity:moderate Duration:started 1 week(s) ago Onset/Timing:abrupt Alleviating Factors:tylenol Associated Symptoms:no stress; no coughing with sputum; no choking; no throat tickle/itch; no globus sensation; no weight loss; no fever; no lump in neck; no dyspnea; no daytime somnolence;dysphagia;h oarseness;loss of appetite;ear pain(left);nasal congestion Charles Camacho is a 53 year old M who presents to the clinic as he feels he may have strep throat again. Pt was recently diagnosed on 07/22/2024 and was given amoxicillin. He completed treatment for this. However, patient does mention that since treatment his children have been getting sick and feels as they are passing this to each other. ALEXANDER RUSHING MD [address], [address], [facility] 09/02/2024 15:58:14
--- NOTE | 2024-09-22 09:00 | MHC.AU.HA3 ---
Hearing Instrument Follow-Up- Binaural Date of Visit: 09/21/24 Right Ear: Model Mason, Color, Serial Number: Raudel Patterson AI 1600 [id number] SN: [id number] Color: Slate Net Development Manager Repair Warranty: 07/14/2025 Net Development Manager Loss and Damage Warranty: 07/14/2025 [facility] Service Plan: 01/24/2023 Battery Size: Rechargeable Truck Driver Teamster/Slim Tube: 2/60 Earmold/Dome/CShell/SlimTip:9mm open dome with retention tail Type of Wax Guard: HearClear Dispensed By: [facility] Date of Fittin01/24/2022 Left Ear: Mason, , Color, Serial Number: Raudel Patterson AI 1600 [id number] SN: [id number] Color: Slate Net Development Manager Repair Warranty: 07/14/2025 Net Development Manager Loss and Damage Warranty: 07/14/2025 [facility] Service Plan: 01/24/2023 Battery Size: Rechargeable Truck Driver Teamster/Slim Tube: 2/60 Earmold/Dome/CShell/SlimTip: 9mm open dome with retention tail Type of Wax Guard: Hear Clear Dispensed By: [facility] Date of Fittin01/24/2022 Follow-Up Summary: Charles states his right hearing aid stopped working after changing the wax guard. Had received a VM from his day prior expressing frustration with the frequency of needing repairs, inquiring if there were options for a different model of hearing aid from R[employer] as they know his devices have been completely replaced a couple of times. Visual inspection of right emergency services director showed wax buildup and wax guard screen deep in emergency services director, device started working after removal. Replaced emergency services director in case of damage. Showed patient and discussed cleaning, states he does not attempt to clean wax guard, just changes it when needed. No previous documentation of similar findings. Patient expressed frustration and feels it must be something he is doing to cause repeated emergency services director replacement. Notes he originally wanted Raudel devices because his research suggested they are particularly water resistant and he tends to perspire heavily when working outside or hiking. Recommended purchasing electric dryer as moisture seems to be the most likely cause of his issues in the absence of any other identifiable cause. Also offered to loan [employer] devices for 3 months to determine if the issue is the hearing aids themselves or something related to patient use. 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 Notes his scrap charger case is broken, will call to drop off and case picker loaner to see if it can be repaired under warranty. Recommendations: Recommendations: Patient will call if problems persist. Diagnosis Code(s): Primary Diagnosis: H90.3 Bilateral Sensorineural Hearing Loss Secondary Diagnosis: H93.13 Tinnitus, Bilateral Signature: Provider: Julio Valerio, CCC-A
== END 2024-09-21 15:52 | disposition home or self-care (01) ==
LOC: HO.HAP 15:51
PROVIDERS: Visit Provider Physician Assistant Medical
DX: Z13.89 Encounter for screening for other disorder (principal)